=== PATIENT | female | born 1945 | race Caucasian/White ===

== ENCOUNTER 2024-10-27 09:58 | Emergency (ER) | payer MEDICARE, SELFPAY ==
[2024-10-27 10:21] VITALS: BP 165/90; PULSE 94; RESP 16; TEMP 36.6; O2SAT 99
[2024-10-27 10:34] LABS: EDCOVIDSCREEN Negative (Negative); EDINFLUASCREEN Negative (Negative); EDINFLUBSCREEN Negative (Negative); EDSTREPNEGPOS1 Negative (Negative)
--- NOTE | 2024-10-27 10:53 | ED_ITS ---
HPI - URI/Sore Throat General Chief Complaint: Upper Respiratory Infection Stated Complaint: COLD SYMPTOMS Time Seen by Provider: 10/27/24 10:35 Source: patient and RN notes reviewed Mode of arrival: ambulatory Limitations: no limitations History of Present Illness HPI Narrative: 79-year-old female presents to the [facility] complaining of upper respiratory symptoms and urinary symptoms for 1 week. Patient reports dysuria, suprapubic pain, cough, congestion, runny nose, and sore throat. Patient denies any body aches, chills, nausea, vomiting, diarrhea, back pain, fevers, chest pain, shortness of breath, earache, or any other symptoms. Patient said her symptoms started with urinary symptoms she called her doctor in the start Macrobid however her symptoms have not been improving. Patient did developed upper respiratory symptoms over the last week and they are not getting any better states that her symptoms are worsening reporting worsening sinus congestion and drainage, and cough. Patient denies any significant past medical history. Patient has a history of cholecystectomy and an appendectomy. Related Data Allergies Allergy/AdvReac Type Severity Reaction Status Date / Time bee venom protein (honey bee) Allergy Intermediate Difficulty Verified 10/27/24 10:53 Breathing iohexol (From contrast - CT, Allergy Intermediate Hives Verified 10/27/24 10:53 X-RAY) Sulfa (Sulfonamide Allergy Intermediate Other Verified 10/27/24 10:53 Antibiotics) prednisone AdvReac Intermediate Agitated Verified 10/27/24 10:53 Review of Systems Review of Systems: CONSTITUTIONAL: Denies fever, chills, or sweats. EYES: Denies visual changes, redness, or discharge. ENT: Positive for rhinorrhea, congestion, sore throat. Negative for otalgia. CARDIOVASCULAR: Denies chest pain, palpitations, or edema. RESPIRATORY: Positive for cough. Negative for wheezing or Dyspnea. GASTROINTESTINAL: Positive for abdominal pain. Negative for nausea, vomiting, or diarrhea. GENITOURINARY: Positive for dysuria, frequency. Negative for hesitancy, vaginal bleeding, vaginal discharge, hematuria. SKIN: Denies rash or itching. MUSCULOSKELETAL: Denies back pain, joint pain, or myalgia. NEUROLOGIC: Denies headache, numbness, or weakness. PSYCHIATRIC: Denies anxiety or depression. All other systems reviewed are negative, except as documented in HPI. PMFSH Comments At the time of my signature, I reviewed and agree with the nursing past medical, surgical, social, and family history. There is no relevant family history pertinent to the patient complaint. Exam Narrative: GENERAL: This is a well-nourished, well-developed adult, in no apparent distress. They are non ill-appearing, nontoxic appearing. HEAD: normocephalic, atraumatic. EYES: Sclera clear/white. Conjunctiva normal. Vision is grossly intact. Extraocular movements intact. periOrbital space edematous bilaterally without redness or pain. EARS: External ears normal, auditory canals clear and without drainage, TMs normal without perforation. Hearing grossly intact. NOSE: External nose normal with no obvious nasal discharge, nasal turbinates erythematous with exudate, no rhinorrhea. Maxillary sinus tenderness to palpation. THROAT: Mucous membranes moist, posterior pharynx erythematous. Uvula midline. Postnasal drip present. NECK: Neck supple, non-tender without lymphadenopathy, masses or thyromegaly. CARDIOVASCULAR: Regular rate and rhythm without murmurs, gallops, or rubs. RESPIRATORY: Clear to auscultation. Breath sounds equal bilaterally. No wheezes, rales, or rhonchi. GASTROINTESTINAL: Abdomen soft, mild suprapubic tenderness to palpation,, nondistended. Bowel sounds are active. No hepato-splenomegaly, or palpable masses. No guarding or rigidity. SKIN: warm, Dry, intact with no suspicious lesions or rash, good texture and turgor. NEURO: awake, alert, and oriented to person, place and time. There were no obvious focal neurologic abnormalities. EXTREMITIES: No joint tenderness, effusion, or edema noted. BACK: Nontender without deformity. No CVA tenderness. Course Course Emergency Course: Portions of this record may have been created with voice recognition software Level of Care: Express Care Visit Vital Signs Vital signs: Vital Signs Temperature 97.8 F 10/27/24 10:21 Pulse Rate 94 10/27/24 10:21 Respiratory Rate 16 10/27/24 10:21 Blood Pressure 165/90 H 10/27/24 10:21 Pulse Oximetry 99 10/27/24 10:21 Temperature 97.8 F 10/27/24 10:21 Pulse Rate 94 10/27/24 10:21 Respiratory Rate 16 10/27/24 10:21 Blood Pressure 165/90 H 10/27/24 10:21 Pulse Oximetry 99 10/27/24 10:21 Reviewed MDM - URI/Sore Throat MDM Narrative Medical decision making narrative: Rapid COVID, flu, strep were negative. A throat culture is pending. Given worsening symptoms and her length of symptoms likely the patient has developed a bacterial sinusitis. Patient continues to have urinary symptoms, urine dipstick was obtained that still shows evidence of urinary tract infection. Patient was started on Macrobid. A urine culture is pending. Will treat patient's UTI and sinusitis with Augmentin. Prescribe benzonatate tablets as needed for cough. Discussed physical exam findings. Advised supportive measures and signs/symptoms to go to the ER. Pt is appropriate for outpt treatment and f/u. Differential Diagnosis Differential diagnosis: Likely upper respiratory infection, sinusitis, viral infection, bronchitis and other (Urinary tract infection, pyelonephritis) Lab Data Attestation: I reviewed the patient's lab results. Labs: Lab Results 10/27/24 10/27/24 Range/Units 10:33 10:56 POC Urine Color Yellow POC Urine Clarity Clear POC Urine pH 7.5 POC Ur Specif [place] 1.015 POC Urine Protein Negative (Negative) POC Ur Glucose (UA) Negative (Negative) POC Urine Ketones Negative (Negative) POC Urine Blood Negative (Negative) POC Urine Nitrite Negative (Negative) POC Urine Bilirubin Negative (Negative) POC Urine Urobilinogen 4.0 POC U Leukocyte Esteras Trace (Negative) POC Influenza A Ag Negative (Negative) POC Influenza B Ag Negative (Negative) POC SARS CoV-2 Ag Negative (Negative) POC Grp A Strep Screen Negative (Negative) Critical Care Time Critical Care Time Critical Care Time: No Discharge Plan Discharge Clinical Impression: Sinusitis Qualifiers: Sinusitis location: unspecified location Chronicity: acute Recurrence: non- recurrent Qualified Code(s): J01.90 - Acute sinusitis, unspecified Urinary tract infection Qualifiers: Urinary tract infection type: site unspecified Hematuria presence: without hematuria Qualified Code(s): N39.0 - Urinary tract infection, site not specified Patient Disposition: Home Condition: Stable Instructions: Antibiotic Form, Sinusitis (ED), Urinary Tract Infection in Older Adults (ED) Additional Instructions: Your rapid COVID, flu, strep were negative. A throat culture is is sent off and if this positive for strep you will be contacted. Take the antibiotics as directed and complete the course even if you start to feel better. Take benzonatate tablets as needed for cough. You may use a Neti pot saline rinse 3 times a day with lukewarm distilled water Take Tylenol or ibuprofen as needed for pain or fevers. Follow instructions on the bottle. Use a humidifier or vaporizer at night. Drink plenty of water. 8-10 glasses per day. Use flonase 2 times per day for 5 days then as needed Take mucinex 2 times per day and be sure to take with 8oz of water. Urine dipstick did show evidence of urinary tract infection. The antibiotic prescribed her sinus infection will also cover for UTIs. The urine will be sent of for a culture to identify what type of bacteria is causing your infection. If the culture shows that the antibiotic will not get rid of your infection, you will be notified and a new antibiotic will be called in for you. Increase water intake you will need to follow up with your PCP 3-5 days. Go to the ER for any worsening symptoms, abdominal pain, fevers, nausea, vomiting, difficulty breathing, chest pains, worsening symptoms, or any other concerns Patient Language: Spanish Prescriptions: New benzonatate 100 mg capsule 100 mg PO TID PRN (Reason: cough) Qty: 20 0RF amoxicillin-pot clavulanate 875-125 mg tablet 1 tablet PO Q12H 7 Days Qty: 14 0RF Follow-up/Referrals: Spenser,Carmelo [Other] Time of Disposition: 10:59
[2024-10-27 10:58] LABS: EDUAAPPEAR Clear; EDUABILI Negative (Negative); EDUABLOOD Negative (Negative); EDUACOLOR1 Yellow; EDUAGLUCOSE Negative (Negative); EDUAKETONE Negative (Negative); EDUALEUKO Trace (Negative); EDUANITRATE Negative (Negative); EDUAPH 7.5; EDUAPROTEIN Negative (Negative); EDUASPGRAVITY 1.015; EDUAUROBILI 4.0
== END 2024-10-27 11:01 | disposition home or self-care (01) ==
DX: J32.9 Chronic sinusitis, unspecified (principal); N39.0 Urinary tract infection, site not specified; Z20.822 Contact with and (suspected) exposure to COVID-19
CPT/HCPCS: 81003; 87081; 87086; 87426; 87804; 87880; 99203; G0463

== ENCOUNTER 2025-01-29 17:33 | Emergency (ER) | payer MEDICARE, SELFPAY ==
--- NOTE | ~2025-01-29 | CT_ITS ---
CT abdomen pelvis wo con INDICATION:lower abd pain, poss stone vs infection . COMPARISON: None. TECHNIQUE: Axial 2.5 mm images of the abdomen were obtained without IV or oral contrast. Diagnostic sensitivity is limited due to lack of IV contrast. FINDINGS: The lung bases are clear. The liver parenchyma is unremarkable. No intrahepatic mass or ductal dilatation is evident. The patient has had a cholecystectomy. The pancreas and spleen are normal in appearance. The adrenal glands are symmetric in size. The kidneys are unremarkable. No intrarenal stones are noted. There is no hydronephrosis. Evaluation of the stomach and bowel loops are limited due to lack of oral contrast. There is a left inguinal hernia containing sigmoid and descending colon. No obstruction. The bladder and rectum are normal. No free intraperitoneal fluid or air is evident. There is no significant retroperitoneal lymphadenopathy. The aorta, visceral vessels and renal arteries demonstrate normal caliber. The lower thoracic and lumbar vertebrae are in normal alignment. IMPRESSION: Left inguinal hernia containing sigmoid and descending colon with no evidence of bowel obstruction. All CT scans at this facility are performed using low dose modulation techniques as appropriate to perform exam including the following: automated exposure control; use of iterative reconstruction technique; adjustment of the mA and/or kV according to patient size (this includes techniques or standardized protocols for targeted exams where dose is matched to indication/reason for exam). Reviewed, dictated and finalized at location S. UNICATIONS AGENT IMPRESSION: Left inguinal hernia containing sigmoid and descending colon with no evidence o f bowel obstruction. All CT scans at this facility are performed using low dose modulation techniqu es as appropriate to perform exam including the following: automated exposure c ontrol; use of iterative reconstruction technique; adjustment of the mA and/or kV according to patient size (this includes techniques or standardized protocol s for targeted exams where dose is matched to indication/reason for exam).
--- OUTSIDE RECORDS SUMMARY | 2025-01-29 16:00 | XMS_ITS | Encounter Summary ---
Author Organization [facility] Healthcare Address [address] [place] [address] Care Team Providers Care Manager Registration Name Role Phone Carmelo Dueñas MD Primary Care Provider [phone] Reason for Visit * Reason Comments UTI Lower back pain, chris n in lower abdomen x 3 days, pt took azo this morning Encounter Details Date Type Department Care Team (Late st Contact Info) Description 01/29/2025 4:00 PM INTEGRITY MANAGER Office Visit [facility] Medical [facility] Convenient Care at [address] [address] Alexandria Robles, MECHANICAL FIELD ENGINEER [address] [place] [address] [address] [place] [address] Lower abdominal pain (Primary Dx) Social History Tobacco Use Types Packs/Day Years Used Date Smoking Tobacco: Never Assessed Comments No Sex and Gender Information Value Date Recorded Sex Assigned at Not on file Legal Sex Female 4:42 PM INTEGRITY MANAGER Gender Identity Not on file Sexual Orientation Not on file documented as of this encounter Last Filed Vital Signs Vital Sign Reading Time Taken Comments Blood Pressure 122/70 01/29/2025 4:02 PM INTEGRITY MANAGER Pulse 79 01/29/2025 4:02 PM INTEGRITY MANAGER Temperature 36.2 C (97.2 F) 01/29/2025 4:02 PM INTEGRITY MANAGER Respiratory Rate 16 01/29/2025 4:02 PM INTEGRITY MANAGER Oxygen Saturation 97% 01/29/2025 4:02 PM INTEGRITY MANAGER Inhaled Oxygen Concentration - - Weight 54.9 kg (121 lb) 01/29/2025 4:02 PM INTEGRITY MANAGER Height 149.9 cm (4' 11) 01/29/2025 4:02 PM INTEGRITY MANAGER Body Mass Index 24.44 01/29/2025 4:02 PM INTEGRITY MANAGER documented in this encounter Plan of Treatment Scheduled Orders Name Type Priority Associated Diagnoses Orde r Schedule Urine culture Urine, clean voided Microbiology Routine Lower abdominal pain Expected: 01/29/2025, Expires: 01/29/2026 documented as of this encounter Procedures Procedure Name Priority Date/Time Associated Diagnosis Comments POCT URINALYSIS DIPSTICK Routine 01/29/2025 4:11 PM INTEGRITY MANAGER Lower abdominal pain documented in this encounter Results * (ABNORMAL) POCT urinalysis dipstick (01/29/2025 4:11 PM INTEGRITY MANAGER) Color, Urine, POC [place] Comment:azo Clarity, ur, POC Clear Clear Glucose, ur, POC Negative Negative Bilirubin, ur, POC Negative Negative Ketones, ur, POC Negative Negative Specific [place], POC 1.010 1.003 - 1.030 Blood, ur, POC Negative Negative pH, ur, POC 6.5 5.0 - 8.0 Protein, ur, POC Negative Negative Urobilinogen, urine, POC 1.0 0.2 - 1.0 mg/dL Nitrite, ur, POC Positive(A) Negative Leukocytes, ur, POC Negative Negative Lot Number [id number] Urine 01/29/2025 4:11 PM INTEGRITY MANAGER Alexandria Robles NP POINT OF CARE TEST ORDERAB LES Final Result documented in this encounter Visit Diagnoses Diagnosis Lower abdominal pain- Primary Abdominal pain, other specified site documented in this encounter Historical Medications * This list may reflect changes made after this encounter. travoprost (Travatan Z) 0.004 % drops 1 drop daily 01/21/2014 EPINEPHrine (EPIPEN 2-MILTON) 0.3 mg/0.3 mL auto-injection syringe 08/12/2015 albuterol 5 mg/mL nebulizer solution Inhale 0.5 mL (2.5 mg total) every 4 (four) hours as needed 06/24/2018 dorzolamide-bronwyn loL (COSOPT) 22.3-6.8 mg/mL ophthalmic solution 1 drop 2 (two) times a day 08/28/2020 ergocalciferol (VITAMIN D) 50,000 unit capsule Take 1 capsule (50,000 Units total) by mouth once a week 07/20/2024 meloxicam (MOBIC) 15 mg tablet Take 1 tablet (15 mg total) by mouth daily 04/16/2022 traZODone (DESYREL) 50 mg tablet Take 0.5-1 tablets (25-50 mg total) by mouth daily 11/13/2024 albuterol HFA (PROVENTIL HFA,VENTOLIN HFA,PROAIR HFA) 90 mcg/actuation inhaler USE 2 INHALATIONS BY MOUTH EVERY 6 HOURS NEEDED FOR SHORTNESS OF BREATH 11/22/2021 triamterene-hydr oCHLOROthiazide 37.5-25 mg per tablet/capsule Take 1 tablet/capsule by mouth daily 12/15/2013 lisinopriL (PRINIVIL,ZESTRI L) 40 mg tablet Take 1 tablet (40 mg total) by mouth daily 03/16/2022 levothyroxine (SYNTHROID) 50 mcg tablet Take 1 tablet (50 mcg total) by mouth daily 03/16/2022 omeprazole (PriLOSEC) 20 mg capsule Take 1 capsule (20 mg total) by mouth daily 03/16/2022 atorvastatin (LIPITOR) 40 mg tablet Take 1 tablet (40 mg total) by mouth daily 03/16/2022 fluticasone propionate (FLONASE) 50 mcg/actuation nasal spray Administer 2 sprays into affected nostril(s) daily 09/05/2021 ALPRAZolam (XANAX) 0.25 mg tablet Take 1 tablet (0.25 mg total) by mouth 3 (three) times a day as needed 05/14/2022 added in this encounter Care Teams Manager Registration Relationship Specialty Start Date End Date Carmelo Dueñas MD [address] [facility] [address] [place] [phone] PCP - General Internal Medicine 01/29/25 documented as of this encounter
--- OUTSIDE RECORDS SUMMARY | 2025-01-29 16:00 | XMS_ITS | Encounter Summary ---
Author Organization [facility] Healthcare Address [address] [place] [address] Care Team Providers Care Research Chemical Engineer Name Role Phone Carmelo Dueñas MD Primary Care Provider [phone] Reason for Visit * Reason Comments UTI Lower back pain, chris n in lower abdomen x 3 days, pt took azo this morning Encounter Details Date Type Department Care Team (Late st Contact Info) Description 01/29/2025 4:00 PM HOSPITAL ACCOUNT LIAISON Office Visit [facility] Medical Group Convenient Care at [address] [address] Alexandria Robles, SHIP LABORER [address] [place] [address] [address] [place] [address] Lower abdominal pain (Primary Dx) Social History Tobacco Use Types Packs/Day Years Used Date Smoking Tobacco: Never Assessed Comments No Sex and Gender Information Value Date Recorded Sex Assigned at Not on file Legal Sex Female 4:42 PM HOSPITAL ACCOUNT LIAISON Gender Identity Not on file Sexual Orientation Not on file documented as of this encounter Last Filed Vital Signs Vital Sign Reading Time Taken Comments Blood Pressure 122/70 01/29/2025 4:02 PM HOSPITAL ACCOUNT LIAISON Pulse 79 01/29/2025 4:02 PM HOSPITAL ACCOUNT LIAISON Temperature 36.2 C (97.2 F) 01/29/2025 4:02 PM HOSPITAL ACCOUNT LIAISON Respiratory Rate 16 01/29/2025 4:02 PM HOSPITAL ACCOUNT LIAISON Oxygen Saturation 97% 01/29/2025 4:02 PM HOSPITAL ACCOUNT LIAISON Inhaled Oxygen Concentration - - Weight 54.9 kg (121 lb) 01/29/2025 4:02 PM HOSPITAL ACCOUNT LIAISON Height 149.9 cm (4' 11) 01/29/2025 4:02 PM HOSPITAL ACCOUNT LIAISON Body Mass Index 24.44 01/29/2025 4:02 PM HOSPITAL ACCOUNT LIAISON documented in this encounter Plan of Treatment Scheduled Orders Name Type Priority Associated Diagnoses Orde r Schedule Urine culture Urine, clean voided Microbiology Routine Lower abdominal pain Expected: 01/29/2025, Expires: 01/29/2026 documented as of this encounter Procedures Procedure Name Priority Date/Time Associated Diagnosis Comments POCT URINALYSIS DIPSTICK Routine 01/29/2025 4:11 PM HOSPITAL ACCOUNT LIAISON Lower abdominal pain documented in this encounter Results * (ABNORMAL) POCT urinalysis dipstick (01/29/2025 4:11 PM HOSPITAL ACCOUNT LIAISON) Color, Urine, POC [place] Comment:azo Clarity, ur, POC Clear Clear Glucose, ur, POC Negative Negative Bilirubin, ur, POC Negative Negative Ketones, ur, POC Negative Negative Specific [place], POC 1.010 1.003 - 1.030 Blood, ur, POC Negative Negative pH, ur, POC 6.5 5.0 - 8.0 Protein, ur, POC Negative Negative Urobilinogen, urine, POC 1.0 0.2 - 1.0 mg/dL Nitrite, ur, POC Positive(A) Negative Leukocytes, ur, POC Negative Negative Lot Number [id number] Urine 01/29/2025 4:11 PM HOSPITAL ACCOUNT LIAISON Alexandria Robles NP POINT OF CARE TEST [...] 05/14/2022 added in this encounter Care Teams Research Chemical Engineer Relationship Specialty Start Date End Date Carmelo Dueñas MD [address] [facility] [place] [address] [place] [phone] PCP - General Internal Medicine 01/29/25 documented as of this encounter
[2025-01-29 18:05] VITALS: BP 149/99; PULSE 97; RESP 14; TEMP 36.8; O2SAT 99
--- OUTSIDE RECORDS SUMMARY | 2025-01-29 18:28 | XMS_ITS | Encounter Summary ---
Author Organization [facility] Address [address] [place] [address] Care Team Providers Care Child Care Attendant School Name Role Phone Carmelo Dueñas MD Primary Care Provider +- [phone] Encounter Details Date Type Department Care Team (Latest Contact Info) Description 03/06/2002 Outpatient Historical [facility] Carmelo Dueñas MD [address] [place] [phone] SYMPTOMATIC FEMALE CLIMACTERIC STATE (Primary Dx) Social History Tobacco Use Types Packs/Day Years Used Date Smoking Tobacco: Never Assessed Comments Unknown Sex and Gender Information Value Date Recorded Sex Assigned at Not on file Legal Sex Female 4:47 AM OUTSIDE PRODUCTION INSPECTOR Gender Identity Not on file Sexual Orientation Not on file documented as of this encounter Plan of Treatment Upcoming Encounters Date Type Department Care Team (Late st Contact Info) Description 03/06/2025 4:40 PM OUTSIDE PRODUCTION INSPECTOR Office Visit [facility] Primary Care [facility] [address] [place] [address] [address] [place] [phone] Carmelo Dueñas [place] [address] [facility] [address] [place] [address] documented as of this encounter Visit Diagnoses Diagnosis Symptomatic menopausal or female climacteric states- Primary documented in this encounter Care Teams Child Care Attendant School Relationship Specialty Start Date End Date Carmelo Dueñas MD [address] [place] [address] [address] [place] [address] PCP - General 03/06/02 documented as of this encounter
--- OUTSIDE RECORDS SUMMARY | 2025-01-29 18:28 | XMS_ITS | Encounter Summary ---
Author Organization [facility] Address [address] [place] [address] Care Team Providers Care Power Plant Engineer Name Role Phone Carmelo Dueñas MD Primary Care Provider [phone]- [phone] Encounter Details Date Type Department Care Team (Late Contact Info) Description 08/22/2002 Outpatient Historical [facility] Internal Medicine [address] [address] Carmelo Dueñas MD [address] [place] [phone] Social History Tobacco Use Types Packs/Day Years Used Date Smoking Tobacco: Never Assessed Comments Unknown Sex and Gender Information Value Date Recorded Sex Assigned at Not on file Legal Sex Female 4:47 AM CASE FOLDER Gender Identity Not on file Sexual Orientation Not on file documented as of this encounter Last Filed Vital Signs Vital Sign Reading Time Taken Comments Blood Pressure 130/86 08/22/2002 9:30 AM CDT Pulse - - Temperature - - Respiratory Rate - - Oxygen Saturation - - Inhaled Oxygen Concentration - - Weight 59 kg (130 lb) 08/22/2002 9:30 AM CDT Height - - Body Mass Index - - documented in this encounter Plan of Treatment Upcoming Encounters Date Type Department Care Team (Late st Contact Info) Description 03/06/2025 4:40 PM CASE FOLDER Office Visit [facility] Primary Care [address] [place] [address] Carmelo Dueñ[place] [id number] [address] documented as of this encounter Visit Diagnoses Not on filedocumented in this encounter Care Teams Power Plant Engineer Relationship Specialty Start Date End Date Carmelo Dueñas [place] [id number] [place] [phone] PCP - General 03/06/02 documented as of this encounter
--- OUTSIDE RECORDS SUMMARY | 2025-01-29 18:28 | XMS_ITS | Clinical Summary ---
Author Organization [facility] Address [address] [place] [address] Care Team Providers Care Auditing Specialist Name Role Phone Carmelo Dueñas MD Primary Care Provider [phone] Allergies Active Allergy Reactions Criticality Noted Date Comments Allergen Nyd-Cjcid-Wczbm Bee Swelling Low 10/30/2003 Codeine Itching,Confusion,Di zziness Low 05/10/2002 Iodinated Contrast Media Nausea and Vomiting Low Iodine Hives High 05/10/2002 Metrizamide Nausea and Vomiting Low 01/19/2014 Prednisone Other (See Comments) 06/24/2018 Fits of rage and crying Sulfa (Sulfonamide Antibiotics) Rash Low 08/10/2002 Sulfasalazine Itching Low 01/19/2014 Venom-Honey Bee Swelling Low 10/30/2003 Medications TRAVATAN Z 0.004 % solution Administer 1 Drop in both eyes daily. 01/22/20 14 Active ACETAMINOPHEN (TYLENOL ORAL) Take 325 mg by mouth 1 time daily as needed . Active EPIPEN 2-MILTON 0.3 mg/0.3 mL Auto-Injector 08/12/19 16 Active albuterol (PROVENTIL,VENTOL IN) 5 mg/mL Solution for Nebulization Take 0.5 mL (2.5 mg) by inhalation every 4 hours as needed for Shortness of Breath Saline premix vials. 30 mL 06/25/19 19 Active dorzolamide-timol oL (COSOPT) 22.3-6.8 mg/mL solution INSTILL 1 DROP IN BOTH EYES TWICE DAILY 08/29/19 21 Active estradioL (ESTRACE) 0.01% (0.1 mg/g) vaginal creamIndications: Recurrent UTI Insert 2 Grams vaginally daily. Administer 2 grams, once daily, intravaginally for 1 to 2 weeks. Then, gradually reduce to 50% of initial dose for 1 to 2 weeks. Adjust dose as needed to control symptoms. 42.5 Gram 2 01/06/20 23 Active Vitamin D2 1,250 mcg (50,000 unit) capsule TAKE 1 CAPSULE BY MOUTH EVERY 7 DAYS 13 Capsule 2 07/21/19 25 Active meloxicam (MOBIC) 15 mg tabletIndications :Generalized osteoarthrosis, involving multiple sites TAKE 1 TABLET BY MOUTH DAILY 90 Tablet 3 10/20/19 25 Active traZODone (DESYREL) 50 mg tablet Take 0.5-1 Tablets (25-50 mg) by mouth daily at bedtime. As needed for sleep 30 Tablet 2 11/14/19 25 Active fluticasone propionate (FLONASE) 50 mcg/spray Mutual, Suspension nasal inhalerIndication s:PND (post-nasal drip) Administer 2 Sprays in each nostril daily. 48 Gram 3 12/13/19 25 Active albuterol sulfate HFA 90 mcg/actuation aerosol inhalerIndication s:Upper respiratory tract infection, unspecified type USE 2 INHALATIONS BY MOUTH EVERY 6 HOURS NEEDED FOR SHORTNESS OF BREATH 34 Gram 3 12/12/19 25 Active atorvastatin (LIPITOR) 40 mg tabletIndications :Essential hypertension, benign TAKE 1 TABLET BY MOUTH DAILY 100 Tablet 3 12/13/19 25 Active omeprazole (PriLOSEC) 20 mg Capsule, Delayed Release(E.C.)Kylie cations:Gastroeso phageal reflux disease without esophagitis TAKE 1 CAPSULE BY MOUTH DAILY 100 Capsule 3 12/13/19 25 Active levothyroxine 50 mcg tabletIndications :Acquired hypothyroidism TAKE 1 TABLET BY MOUTH DAILY 100 Tablet 3 12/13/19 25 Active lisinopriL (PRINIVIL) 40 mg tabletIndications :Essential hypertension, benign TAKE 1 TABLET BY MOUTH DAILY 100 Tablet 3 12/13/19 25 Active triamterene-hydro CHLOROthiazide (MAXZIDE 25) 37.5-25 mg tabletIndications :Essential hypertension, benign TAKE 1 TABLET BY MOUTH DAILY 100 Tablet 3 12/13/19 25 Active ALPRAZolam (XANAX) 0.25 mg tabletIndications :Generalized anxiety disorder Take 1 Tablet (0.25 mg) by mouth 3 times daily as needed for Anxiety. 100 Tablet 01/02/20 25 Active ALPRAZolam (XANAX) 0.25 mg tabletIndications :Generalized anxiety disorder Take 1 Tablet (0.25 mg) by mouth 3 times daily as needed for Anxiety. 100 Tablet 10/11/19 25 025 Disconti nued(Reo rder) Active Problems Patient Care Coordination No te Formatting of this note migh t be different from the original. Physical -05/07 G0439 - 04/11 [facility] - [place] Problem Noted Date Diagnosed Date Use of cane as ambulatory aid 04/03/2024 Prediabetes 09/22/2021 Mild intermittent asthma without complication Open-angle glaucoma of both eyes, mild stage Overview (12/15/2018): [facility] 10/12/18 Vitamin D deficiency 04/21/2016 Urinary frequency 12/16/2006 Acquired hypothyroidism 10/29/2006 Gastroesophageal reflux disease without esophagi tis 09/01/2005 Urge incontinence 04/23/2005 Essential hypertension, benign 05/10/2002 Dyslipidemia 05/10/2002 Generalized anxiety disorder 05/10/2002 Migraine without aura and wi thout status migrainosus, not intractable 05/10/2002 Allergic rhinitis 05/10/2002 Generalized osteoarthrosis, involving multiple s ites 05/10/2002 Overview (09/11/2024): 08/09 - right TKR Osteopenia of multiple sites 05/10/2002 Overview (09/20/2023): Dexa 10/05 - repeat in 10/07 Alendronate since 2010 - stopped 10/08 Resolved Problems Problem Noted Date Diagnosed Date Resolved Date Adjustment disorder with mix ed disturbance of emotions and conduct 12/16/2006 10/18/2007 Cellulitis and abscess of face 08/24/2005 10/18/2007 Urinary tract infection, site not specified 11/12/2003 10/18/2007 Sting of hornets, wasps, and bees as the cause of poisoning and toxic reactions(E905.3) 11/02/2003 10/18/2007 Trunk, insect bite, nonvenom ous, without mention of infection(911.4) 11/02/2003 10/18/2007 Breast screening, unspecified 04/02/2003 06/25/2009 Acute bronchitis 07/03/2002 10/18/2007 Encounters Date Type Department Care Team Description 01/16/2025 External Device Data [facility] ABSTRACTION Provider, Abstract 01/09/2025 External Device Data [facility] ABSTRACTION Provider, Abstract 01/02/2025 External Device Data [facility] ABSTRACTION Provider, Abstract 01/01/2025 [facility] Internal Medicine [facility] [id number] [address] Carmelo Dueñas MD Generalized anxiety disorder 12/11/[address] [place] [address] Carmelo Dueñas MD Essential hypertension, benign; Gastroesophageal reflux disease without esophagitis; Acquired hypothyroidism 12/11/[address] [place] [address] Staci Del Valle, ANP Upper respiratory tract infection, unspecified type 12/11/[address] [place] [address] Carmelo Dueñas MD PND (post-nasal drip) 11/13/2024 Nurse Triage [facility] Internal Medicine [facility] [id number] [address] Carmelo Dueñas MD from Last 3 Months Immunizations Immunization Administration Dates Next Due (ADACEL/BOOSTRIX)(10 YR UP) TDAP VACCINE, 0.5ML, IM 01/14/2015 (PFIZER)(12 YR UP) COVID-19 VACCINE - EMERGENCY USE AUTHORIZATION, MRNA, [id number](PF) 30 MCG/0.3 ML IM SUSP 11/21/2020,05/08/2020,04/19/2020 (PNEUMOVAX 23)(50 YRS UP) PN EUMOCOCCAL POLYSACCHARIDE (PPV23) 0.5 ML, IM 02/18/2012 (PREVNAR 13)(6 WKS UP) PNEUM OCOCCAL CONJUGATE (PCV13) 0.5 ML, IM 10/08/2014 (SHINGRIX)(50 YRS UP) ZOSTER VACCINE RECOMBINANT, 0.5 ML, IM 12/16/2021,09/23/2021 (TDVAX)(7 YRS UP) TETANUS AN D DIPHTHERIA TOXOIDS, ADSORBED (2 LF OF TETANUS TOXOID AND 2 LF OF DIPHTHERIA TOXOID), 0.5ML (PF), IM 02/15/2002 INFLUENZA VACCINE HIGH DOSE QUADRIVALENT 65 YR UP PF IM 12/02/2021,11/03/2020 INFLUENZA VACCINE QUADRIVALE NT ADJ 65 YR UP PF IM 11/11/2022 Influenza Seasonal Unspecifi ed Formulation IM 11/20/2015,11/15/2013,11/26/2012,11/15,11/15/2010,11/15/2009,11/16/2007 Influenza Vaccine High Dose 65+ Yrs IM 0 11/04/2019,10/30/2018,11/01/2017,11/02,11/02/2016,12/06/2014 Influenza Vaccine Split 3+ Yrs IM 12/23/2006 Zoster Vaccine Live SQ 08/15/2010 Family History Medical History Relation Name Comments Cancer Mother Heart Disease Sister 1 Stroke Sister 2 Diabetes Son Heart Disease Son Relation Name Status Comments Brother Father Mother Sister 1 Alive Sister 2 Son Alive Social History Tobacco Use Types Packs/Day Years Used Date Smoking Tobacco: Former Cigarettes 20 0 10/17/1962 - 10/17/1982 Passive Smoke Exposure: Past Smokeless Tobacco: Never Tobacco Cessation:Counseling Given: No Alcohol Use Standard Drinks/Week Comments Yes 1 (1 standard drink = 0.6 oz pur e alcohol) rarely Feeling Safe Answer Date Recorded Within the last year, have y ou been afraid of your partner or ex-partner? Patient declined 05/31/2018 Within the last year, have y ou been humiliated or emotionally abused in other ways by your partner or ex-partner? Patient declined 05/31/2018 Within the last year, have y ou been kicked, hit, slapped, or otherwise physically hurt by your partner or ex-partner? Patient declined 05/31/2018 Within the last year, have y ou been raped or forced to have any kind of sexual activity by your partner or ex-partner? Patient declined 05/31/2018 Social Connections Answer Date Recorded In a typical week, how many times do you talk on the phone with family, friends, or neighbors? Three times a week 01/23/2020 How often do you get togethe r with friends or relatives? More than three times a week 01/23/2020 Attends Jewish Services Not on file 01/22 Active Member of Clubs or Organizations Not on f ile 01/23/2020 Attends Club or Organization Meetings Not on keagan e 01/23/2020 Marital Status Not on file 01/23/2020 Financial Resource Strain Answer Date R ecorded How hard is it for you to pa y for the very basics like food, housing, medical care, and heating? Not hard at all 04/16/2022 Food Insecurity Answer Date Recorded In the past 12 months, have you worried that your food would run out before you had money to buy more? Never true 04/16/2022 In the past 12 months, did y ou run out of food and didn't have money to buy more? Never true 04/16/2022 Transportation Needs Answer Date Record ed In the past 12 months, has l ack of transportation kept you from medical appointments or from getting medications? No 04/16/2022 Lack of Transportation (Non-Medical) Not on file 04/16/2022 Education Answer Date Recorded What is the highest level of school you have completed or the highest degree you have received? 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 Not on file Not on file Last Filed Vital Signs Vital Sign Reading Time Taken Comments Blood Pressure 126/64 09/11/2024 3:02 PM CDT Pulse 92 09/11/2024 3:02 PM CDT Temperature 37.2 C (98.9 F) 09/16/2022 2:09 PM CDT Respiratory Rate 20 06/24/2018 11:25 AM CDT Oxygen Saturation 97% 09/11/2024 3:02 PM CDT Inhaled Oxygen Concentration - - Weight 58.2 kg (128 lb 3.2 oz) 09/11/2024 3:02 P M CDT Height 149.9 cm (4' 11) 09/11/2024 3:02 PM CDT Body Mass Index 25.89 09/11/2024 3:02 PM CDT Plan of Treatment Upcoming Encounters Date Type Department Care Team (Late st Contact Info) Description 03/06/2025 4:40 PM TECHNICAL PROJECT LEAD Office Visit [facility] [address] [place] [address] Carmelo Dueñas [place] [id number] [address] Health Maintenance Due Date Last Done Comments RSV VACCINE (60+ or ) (1 - 1-dose 75+ series) 2021 INFLUENZA VACCINE (#1) 2024 3, 12/02/2021, 11/03/2020, Additional history exists COVID-19 Vaccine (2024-2 6 season) 2024 11/21/2020, 05/08/2020, 04/19/2020 DTAP/TDAP/TD VACCINES (2 - T d or Tdap) 01/14/2025 01/14/2015, 02/15/2002 OSTEOPOROSIS SCREENING 10/20/2026 4, 10/21/2023, 09/24/2020, Additional history exists PNEUMOCOCCAL VACCINE 50+ YEARS Completed 10/08/2014 , 02/18/2012 COLORECTAL SCREENING Discontinued 05/29/2015, 05/14/19 06 Colorectal Cancer Screening Discontinued ZOSTER VACCINE Completed 12/16/2021, 10/2021, 08/15/2010 [place]) Preventative Visit/Annual Wellness Visit Completed 04/03/2024, 04/12/2023, 04/16/2022, Additional history exists FIT-DNA Q 3 years Discontinued FIT/FOBT Q 1 year Discontinued Flex Sig/CT Colonography Q 5 years Discontinued Procedures Procedure Name Priority Date/Time Associated Diagnosis Comments XR DEXA BONE DENSITY AXIAL 1 OR MORE SITES Routine 10/21/2023 8:20 AM CDT Osteopenia of multiple sites from Last 3 Months or Most Recently Relevant to Health Maintenance Results * XR DEXA BONE DENSITY AXIAL 1 OR MORE SITES (10/21/2023 8:20 AM CDT) Anatomical Region Laterality Modality Digital Radiogra phy 10/21/2023 8:20 AM CDT Impressions 10/21/2023 9:13 AM CDT IMPRESSION: Osteopenia. Lumbar Spine: T-score: -1.1 Left Femoral Neck: T-score: -2.2 Left Total Femur: T-score: -1.5 Right Femoral Neck: T-score: -2.3 Right Total Femur: T-score: -1.6 Statistical CHANGE: No significant change in BMD since the prior exam. FRAX FRACTURE RISK ASSESSMENT: (Only valid Between 40-89 Years Of Age) Risk factors: Secondary osteoporosis. 10-Year probability of fracture Major osteoporotic fracture: 9.6 % Defined as fracture of the spine, hip or shoulder. Hip fracture: 2.9 % Comparison population: [place], Race: This is a summary page. Please refer to the complete detailed report found in: Imaging Section of the [facility] EMR. Definitions: Normal: T-score above -1.0 Osteopenia T-score less than -1.0 and above -2.5 Osteoporosis: T-score <= -2.5 Note: Clinical Osteoporosis may be based on other factors besides DXA calculated BMD. OTher factors include and are not limited to fragility fractures, subclinical compression fractures,osteopenia and elevated FRAX Scores. A major osteoporotic fracture is defined as a fracture of the spine, forearm, hip or shoulder. Follow-up Recommendations: Patients without high risk factors for osteoporosis T-score -1.0 to -1.5 - Consider repeat BMD in 5-10 years T-score -1.5 to - 2.0 - Consider repeat BMD in 3-5 years T-score -2.0 to - 2.5 - Consider repeat BMD every 2 years Patients on treatment for osteoporosis 1-2 years after initiation of treatment and every 2 years thereafter [address] Dr[address] Bridger Dominguez MD DICTATION LOCATION: 1 Narrative 10/21/2023 9:13 AM CDT EXAMINATION: BONE DENSITY STUDY (DXA) DATE: 10/21/2023 8:20 AM HISTORY: 78 years Female. Postmenopausal. Osteopenia. PROCEDURE: Planar images of the lumbar spine and hip(s). [employer] DEXA scanner for bone mineral density determination (BMD). Prior bone density: 09/24/2020 FINDINGS: Lumbar Spine (L1-L2): T-score: -1.1 1.035 g/sq cm Prior: 0.958 g/sq cm Left Femoral Neck: T-score: -2.2 0.733 g/sq cm Prior: 0.746 g/sq cm Left Total Femur: T-score: -1.5 Right Femoral Neck: T-score: -2.3 0.719 g/sq cm Prior: 0.740 g/sq cm Right Total Femur: T-score: -1.6 TECHNICAL ISSUES: L3-L4 excluded because of degenerative changes. Procedure Note Bridger Dominguez MD - 10/21/2023 EXAMINATION: BONE DENSITY STUDY (DXA) DATE: 10/21/2023 8:20 AM HISTORY: 78 years Female. Postmenopausal. Osteopenia. PROCEDURE: Planar images of the lumbar spine and hip(s). [employer] DEXA scanner for bone mineral density determination (BMD). Prior bone density: 09/24/2020 FINDINGS: Lumbar Spine (L1-L2): T-score: -1.1 1.035 g/sq cm Prior: 0.958 g/sq cm Left Femoral Neck: T-score: -2.2 0.733 g/sq cm Prior: 0.746 g/sq cm Left Total Femur: T-score: -1.5 Right Femoral Neck: T-score: -2.3 0.719 g/sq cm Prior: 0.740 g/sq cm Right Total Femur: T-score: -1.6 TECHNICAL ISSUES: L3-L4 excluded because of degenerative changes. IMPRESSION: Osteopenia. Lumbar Spine: T-score: -1.1 Left Femoral Neck: T-score: -2.2 Left Total Femur: T-score: -1.5 Right Femoral Neck: T-score: -2.3 Right Total Femur: T-score: -1.6 Statistical CHANGE: No significant change in BMD since the prior exam. FRAX FRACTURE RISK ASSESSMENT: (Only valid Between 40-89 Years Of Age) Risk factors: Secondary osteoporosis. 10-Year probability of fracture Major osteoporotic fracture: 9.6 % Defined as fracture of the spine, hip or shoulder. Hip fracture: 2.9 % Comparison population: [place], Race: This is a summary page. Please refer to the complete detailed report found in: Imaging Section of the [facility] EMR. Definitions: Normal: T-score above -1.0 Osteopenia T-score less than -1.0 and above -2.5 Osteoporosis: T-score <= -2.5 Note: Clinical Osteoporosis may be based on other factors besides DXA calculated BMD. OTher factors include and are not limited to fragility fractures, subclinical compression fractures,osteopenia and elevated FRAX Scores. A major osteoporotic fracture is defined as a fracture of the spine, forearm, hip or shoulder. Follow-up Recommendations: Patients without high risk factors for osteoporosis T-score -1.0 to -1.5 - Consider repeat BMD in 5-10 years T-score -1.5 to - 2.0 - Consider repeat BMD in 3-5 years T-score -2.0 to - 2.5 - Consider repeat BMD every 2 years Patients on treatment for osteoporosis 1-2 years after initiation of treatment and every 2 years thereafter D[address] Dr[address] Bridger Dominguez MD DICTATION LOCATION: 1 Carmelo Dueñas MD DIAGNOSTIC IMAGING ORDERAB LES Final Result from Last 3 Months or Most Recently Relevant to Health Maintenance Insurance [facility] [id number] Advance Directives For more information, please contact: [phone] * Full Code (Latest Code Status on File) Date Activated Date Inactivated Comments 05/29/2015 1:59 PM 05/29/2015 5:54 PM Care Teams Auditing Specialist Relationship Specialty Start Date End Date Carmelo Dueñas [place] [id number] [address] PCP - General 03/06/02
--- OUTSIDE RECORDS SUMMARY | 2025-01-29 18:28 | XMS_ITS | Encounter Summary ---
Author Organization [facility] [address] [place] [address] Care Team Providers Care Needle Punch Operator Name Role Phone Pilar Arroyo MD Unavailable [phone] Carmelo Dueñas MD Primary Care Provider Reason for Visit * Reason Onset Date Comments Results 06/06/2022 Encounter Details Date Type Department Care Team (Late st Contact Info) Description 06/06/2022 Telephone [facility] [address] [facility], [address] [place] [address] Aimee Echols APRN-[facility] REGISTERED NURSE N[facility] [address] [place] [address] Results Social History Tobacco Use Types Packs/Day Years Used Date Smoking Tobacco: Never Alcohol Use Standard Drinks/Week Comments No 0 (1 standard drink = 0.6 oz pur e alcohol) Comments No Sex and Gender Information Value Date Recorded Sex Assigned at Not on file Legal Sex Female 5:48 AM FRANCHISE CONSULTANT Gender Identity Not on file Sexual Orientation Not on file COVID-19 Exposure Response Date Recorded In the last 10 days, have yo u been in contact with someone who was confirmed or suspected to have Coronavirus/COVID-19? No / Unsure 06/01/2022 6:07 PM CDT documented as of this encounter Miscellaneous Notes * Telephone Encounter - Arcadio, Meredith - 06/06/2022 10:08 AM CDT Who is calling? Self What is the reason for call? call for results Expected Response from the Clinic? Please call to advis documented in this encounter Plan of Treatment Not on file documented as of this encounter Visit Diagnoses Not on filedocumented in this encounter Additional Health Concerns Infection Onset Date Last Indicated Resolved Time COVID-19 Under Investigation 02/17/2023 02/17/2023 02/17/2023 10:43 AM FRANCHISE CONSULTANT COVID-19 Confirmed 02/17/2023 02/17/2023 4:35 AM FRANCHISE CONSULTANT documented as of this encounter Care Teams Needle Punch Operator Relationship Specialty Start Date End Date Carmelo Dueñas MD PCP - General Internal Medicine 01/19/14 Pilar Arroyo MD Orthopedic Surgery 01/19/14 documented as of this encounter
--- OUTSIDE RECORDS SUMMARY | 2025-01-29 18:28 | XMS_ITS | Encounter Summary ---
Author Organization [facility] Address [address] [place] [address] Care Team Providers Care Road Maker Name Role Phone Carmelo Dueñas MD Primary Care Provider [phone] Encounter Details Date Type Department Care Team (Late Contact Info) Description 07/03/2002 Outpatient Historical [facility] Internal Medicine [address] [address] Carmelo Dueñas [place] [address] [address] Social History Tobacco Use Types Packs/Day Years Used Date Smoking Tobacco: Never Assessed Comments Unknown Sex and Gender Information Value Date Recorded Sex Assigned at Not on file Legal Sex Female 4:47 AM EXHAUST WORKER Gender Identity Not on file Sexual Orientation Not on file documented as of this encounter Last Filed Vital Signs Vital Sign Reading Time Taken Comments Blood Pressure 130/90 07/03/2002 4:30 PM CDT Pulse - - Temperature - - Respiratory Rate - - Oxygen Saturation - - Inhaled Oxygen Concentration - - Weight 60.8 kg (134 lb) 07/03/2002 4:30 PM CDT Height - - Body Mass Index - - documented in this encounter Plan of Treatment Upcoming Encounters Date Type Department Care Team (Late Contact Info) Description 03/06/2025 4:40 PM EXHAUST WORKER Office Visit [facility] Primary Care [address] [place] [address] Carmelo Dueñas [place] [id number] [place] [address] documented as of this encounter Visit Diagnoses Not on filedocumented in this encounter Care Teams Road Maker Relationship Specialty Start Date End Date Carmelo Dueñas [place] [id number] [place] [address] PCP - General 03/06/02 documented as of this encounter
--- OUTSIDE RECORDS SUMMARY | 2025-01-29 18:28 | XMS_ITS | Encounter Summary ---
Author Organization [facility] Address [address] [place] [address] Care Team Providers Care Transformer Mechanic Name Role Phone Carmelo Dueñas MD Primary Care Provider [phone]- [phone] Encounter Details Date Type Department Care Team (Late Contact Info) Description 02/21/2002 Outpatient Historical [facility] Internal Medicine [address] [address] Carmelo Dueñas [place] [address] [facility] [address] [place] [address] Social History Tobacco Use Types Packs/Day Years Used Date Smoking Tobacco: Never Assessed Comments Unknown Sex and Gender Information Value Date Recorded Sex Assigned at Not on file Legal Sex Female 4:47 AM CHARTER COORDINATOR Gender Identity Not on file Sexual Orientation Not on file documented as of this encounter Plan of Treatment Upcoming Encounters Date Type Department Care Team (Late Contact Info) Description 03/06/2025 4:40 PM CHARTER COORDINATOR Office Visit [facility] Primary Care [address] [place] [address] Carmelo Dueñas [place] [address] [facility] [address] [place] [address] documented as of this encounter Visit Diagnoses Not on filedocumented in this encounter Care Teams Transformer Mechanic Relationship Specialty Start Date End Date Carmelo Dueñ[place] [address] [address] PCP - General 03/06/02 documented as of this encounter
--- OUTSIDE RECORDS SUMMARY | 2025-01-29 18:28 | XMS_ITS | Encounter Summary ---
Author Organization [facility] Address [address] [place] [address] Care Team Providers Care Wild Animal Caretaker Name Role Phone Carmelo Dueñas MD Primary Care Provider [phone]- [phone] Encounter Details Date Type Department Care Team (Late Contact Info) Description 05/23/2002 Outpatient Historical [facility] Internal Medicine [address] [address] Carmelo Dueñ[place] [address] [address] Social History Tobacco Use Types Packs/Day Years Used Date Smoking Tobacco: Never Assessed Comments Unknown Sex and Gender Information Value Date Recorded Sex Assigned at Not on file Legal Sex Female 4:47 AM BENEFITS CONSULTANT Gender Identity Not on file Sexual Orientation Not on file documented as of this encounter Last Filed Vital Signs Vital Sign Reading Time Taken Comments Blood Pressure 122/90 05/23/2002 1:45 PM CDT Pulse - - Temperature - - Respiratory Rate - - Oxygen Saturation - - Inhaled Oxygen Concentration - - Weight 61.2 kg (135 lb) 05/23/2002 1:45 PM CDT Height - - Body Mass Index - - documented in this encounter Plan of Treatment Upcoming Encounters Date Type Department Care Team (Late Contact Info) Description 03/06/2025 4:40 PM BENEFITS CONSULTANT Office Visit [facility] Primary Care [address] [place] [address] Carmelo Dueñas [place] [address] [place] [phone] documented as of this encounter Visit Diagnoses Not on filedocumented in this encounter Care Teams Wild Animal Caretaker Relationship Specialty Start Date End Date Carmelo Dueñas [place] [id number] [place] [address] PCP - General 03/06/02 documented as of this encounter
--- OUTSIDE RECORDS SUMMARY | 2025-01-29 18:28 | XMS_ITS | Encounter Summary ---
Author Organization [facility] Address [address] [place] [address] Care Team Providers Care Director Global Medical Affairs Name Role Phone Pilar Arroyo MD Unavailable [phone] Carmelo Dueñas MD Primary Care Provider Reason for Visit * Reason Onset Date Comments Patient Requested Call 08/09/2023 Encounter Details Date Type Department Care Team (Late st Contact Info) Description 08/09/2023 Telephone [facility] Urgent Care [address] [place] [address] Aimee Echols, MARGO-BUFFING MACHINE OPERATOR SEMIAUTOMATIC [address] [facility] [place] [address] Patient Requested Call Social History Tobacco Use Types Packs/Day Years Used Date Smoking Tobacco: Never Alcohol Use Standard Drinks/Week Comments No 0 (1 standard drink = 0.6 oz pur e alcohol) PHQ-2 Answer Date Recorded Patient Health Questionnaire-2 Score 0 08/02/2023 Comments No Sex and Gender Information Value Date Recorded Sex Assigned at Not on file Legal Sex Female 5:48 AM BLEACHER SULFITE PULP Gender Identity Not on file Sexual Orientation Not on file documented as of this encounter Miscellaneous Notes * Telephone Encounter - Fara Conte - 08/09/2023 10:02 AM CDT Who is calling? self What is the reason for call? Patient was seen at the beginning of this month and waiting for a callback for a specialist. The number she was given on her paperwork is a non-working number. Expected Response from the Clinic? Please call her at the above noted phone number. Did you notify caller of response or call back timeframe? NO Encounter before 6:30p - same day documented in this encounter Plan of Treatment Not on file documented as of this encounter Visit Diagnoses Not on filedocumented in this encounter Care Teams Director Global Medical Affairs Relationship Specialty Start Date End Date Carmelo Dueñas MD PCP - General Internal Medicine 01/19/14 Pilar Arroyo MD Orthopedic Surgery 01/19/14 documented as of this encounter
--- OUTSIDE RECORDS SUMMARY | 2025-01-29 18:29 | XMS_ITS | Encounter Summary ---
Author Organization [facility] Address [address] [place] [address] Care Team Providers Care Senior Technical Business Analyst Name Role Phone Carmelo Dueñas MD Primary Care Provider [phone] Encounter Details Date Type Department Care Team (Late Contact Info) Description 07/08/[address] [facility] Internal Medicine [address] [phone] Omari Millard MD [address] [place] [address] [address] [place] [address] Social History Tobacco Use Types Packs/Day Years Used Date Smoking Tobacco: Never Assessed Comments Unknown Sex and Gender Information Value Date Recorded Sex Assigned at Not on file Legal Sex Female 4:47 AM MORTGAGE LOAN PROCESSING CLERK Gender Identity Not on file Sexual Orientation Not on file documented as of this encounter Plan of Treatment Upcoming Encounters Date Type Department Care Team (Late Contact Info) Description 03/06/2025 4:40 PM MORTGAGE LOAN PROCESSING CLERK Office Visit [facility] Primary Care [facility] [address] [place] [address] [address] [place] [address] Carmelo Dueñas MD [address] [place] [phone] documented as of this encounter Visit Diagnoses Not on filedocumented in this encounter Care Teams Senior Technical Business Analyst Relationship Specialty Start Date End Date Carmelo Dueñ[place] [address] [address] [place] [address] PCP - General 03/06/02 documented as of this encounter
--- OUTSIDE RECORDS SUMMARY | 2025-01-29 18:29 | XMS_ITS | Encounter Summary ---
Author Organization [facility] Address [address] [place] [address] Care Team Providers Care Cutlery Grinder Name Role Phone Carmelo Dueñas MD Primary Care Provider [phone]- [phone] Encounter Details Date Type Department Care Team (Latest Contact Info) Description 08/24/2006 Outpatient Historical [facility] Carmelo Dueñas MD [address] [place] [address] [address] [place] [address] Other Screening Mammogram (Primary Dx) Social History Tobacco Use Types Packs/Day Years Used Date Smoking Tobacco: Never Assessed Comments Unknown Sex and Gender Information Value Date Recorded Sex Assigned at Not on file Legal Sex Female 4:47 AM RESOURCE DEVELOPMENT MANAGER Gender Identity Not on file Sexual Orientation Not on file documented as of this encounter Plan of Treatment Upcoming Encounters Date Type Department Care Team (Late st Contact Info) Description 03/06/2025 4:40 PM RESOURCE DEVELOPMENT MANAGER Office Visit [facility] Primary Care [facility] [address] [place] [address] [address] [place] [phone] Carmelo Dueñas [place] [id number] [place] [address] [address] [place] [address] documented as of this encounter Visit Diagnoses Diagnosis Other screening mammogram- Primary documented in this encounter Care Teams Cutlery Grinder Relationship Specialty Start Date End Date Carmelo Dueñas [place] [id number] [place] [address] [address] [place] [address] PCP - General 03/06/02 documented as of this encounter
--- OUTSIDE RECORDS SUMMARY | 2025-01-29 18:29 | XMS_ITS | Clinical Summary ---
Author Organization [facility] Address [address] [place] [address] Care Team Providers Care Applications Administrator Name Role Phone Pilar Arroyo MD Unavailable [phone] Carmelo Dueñas MD Primary Care Provider [phone] Source Comments [facility],non-owned Affiliates and Associated Physician Practices is amultiple site organization consisting of ambulatory clinics and hospital sitesin [place], [place], [place] and [place]. This disclosure is being madepursuant to the Care Everywhere program and may not contain all information available regarding this patient. Last updated 17.[facility] Allergies Active Allergy Reactions Criticality Noted Date Comments [place] Venom Swelling Low 10/30/2003 Codeine TUBE DRAWER Dysfunction,Dizzines s,Itching Low 05/10/2002 Codeine Dizziness 01/19/2014 Contrast-Iodinated Agents For Ct/Other Nausea and/or Vomiting Low 01/19/2014 Iodine Urticaria High 05/10/2002 Misc. Sulfonamide Containing Compounds Other 08/02/2023 Prednisone Other 06/24/2018 Fits of rage and crying Sulfa Drugs Itching,Rash Medium 08/10/2002 Sulfasalazine Itching Low 01/19/2014 Medications * Be aware that medications may not be up to date on this document. Alwaysverify current medications with the patient. triamterene-hydroc hlorothiazide (MAXZIDE-25) 37.5-25 MG tablet 12/16/19 14 Active albuterol HFA (Proventil; Ventolin; Proair) 108 (90 Base) MCG/ACT inhaler USE 2 INHALATIONS BY MOUTH EVERY 6 HOURS NEEDED FOR SHORTNESS OF BREATH 11/23/19 22 Active ALPRAZolam (Xanax) 0.25 MG tablet Take 1 (one) tablet by mouth every 8 hours as needed 05/15/19 23 Active atorvastatin (Lipitor) 40 MG tablet Take 1 (one) tablet by mouth once daily 03/16/19 23 Active fluticasone propionate (Flonase) 50 MCG/ACT nasal spray [place] 2 (two) sprays into the nose once daily 09/06/19 22 Active Flovent HFA 44 MCG/ACT inhaler 02/24/19 23 Active levothyroxine (Synthroid) 50 MCG tablet Take 1 (one) tablet by mouth once daily 03/16/19 23 Active lisinopril (Prinivil; Zestril) 40 MG tablet Take 1 (one) tablet by mouth once daily 03/16/19 23 Active meloxicam (Mobic) 15 MG tablet Take 1 (one) tablet by mouth once daily 04/17/19 23 Active omeprazole (PriLOSEC) 20 MG capsule Take 1 (one) capsule by mouth once daily 03/16/19 23 Active triamterene-hydroC HLOROthiazide (Maxzide-25) 37.5-25 MG tablet Take 1 (one) tablet by mouth once daily 03/16/19 23 Active travoprost, MELINDA free, (Travatan Z) 0.004 % ophthalmic solution 1 (one) drop at bedtime Active estradiol (Estrace) 0.1 MG/GM vaginal cream INSERT 2 GRAMS VAGINALLY ONCE DAILY FOR 1 TO 2 WEEKS THEN GRADUALLY REDUCE TO 50% OF INITIAL DOSE FOR 1 TO 2 WEEKS. ADJUST DOSE NEEDED TO CONTROL SYMPTOMS Active dorzolamide-timolo l (Cosopt) 2-0.5 % ophthalmic solution 05/29/19 24 Active oxyCODONE-acetamin ophen (Percocet) 7.5-325 MG tabletIndications: Primary osteoarthritis of right knee Take 1 (one) tablet by mouth every 6 hours as needed for Pain 30 tablet 08/03/19 25 Active aspirin EC (Ecotrin) 81 MG tablet Take 1 (one) tablet by mouth 2 times daily 60 tablet 08/03/19 25 Active Active Problems Problem Noted Date Diagnosed Date Primary osteoarthritis of right knee 08/01/2024 Social History Tobacco Use Types Packs/Day Years Used Date Smoking Tobacco: Never Smokeless Tobacco: Never Tobacco Cessation:Counseling Given: Not Answered Alcohol Use Standard Drinks/Week Comments Yes 0 (1 standard drink = 0.6 oz pur e alcohol) occas AUDIT-C Answer Date Recorded Q1: How often do you have a drink containing alcohol? Monthly or less 08/01/2024 Q2: How many drinks containi ng alcohol do you have on a typical day when you are drinking? Patient does not drink Q3: How often do you have si x or more drinks on one occasion? Never 08/01/2024 Overall Financial Resource Strain (CARDIA) Answe r Date Recorded How hard is it for you to pa y for the very basics like food, housing, medical care, and heating? Not hard at all 08/01/2024 PHQ-2 Answer Date Recorded Patient Health Questionnaire-2 Score 0 08/02/2023 [facility] - Occupational Stress Questionnaire Answer Date Recorded Do you feel stress - tense, restless, nervous, or anxious, or unable to sleep at night because your mind is troubled all the time - these days? Not at all 08/01/2024 Hunger Vital Sign Answer Date Recorded Within the past 12 months, y ou worried that your food would run out before you got the money to buy more. Never true 08/02/19 25 Within the past 12 months, t he food you bought just didn't last and you didn't have money to get more. Never true 08/01/2024 PRAPARE - Transportation Answer Date Re corded In the past 12 months, has l ack of transportation kept you from medical appointments or from getting medications? No 07/16 In the past 12 months, has l ack of transportation kept you from meetings, work, or from getting things needed for daily living? No 08/01/2024 Housing Stability Vital Sign Answer Shorty e Recorded In the last 12 months, was t here a time when you were not able to pay the mortgage or rent on time? No 08/01/2024 In the past 12 months, how m any times have you moved where you were living? 0 08/01/2024 At any time in the past 12 m [facility], were you homeless or living in a jail (including now)? 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 Gender Identity Not on file Sexual Orientation Not on file Last Filed Vital Signs Vital Sign Reading Time Taken Comments Blood Pressure 137/79 08/02/2024 12:00 PM CDT Pulse 64 08/02/2024 12:00 PM CDT Temperature 36.1 C (96.9 F) 08/02/2024 12:00 PM CDT Respiratory Rate 18 08/02/2024 12:00 PM CDT Oxygen Saturation 95% 08/02/2024 12:00 PM CDT Inhaled Oxygen Concentration - - Weight 59.4 kg (131 lb) 08/01/2024 10:19 AM CDT Height 147.3 cm (4' 10) 08/01/2024 10:19 AM CDT Body Mass Index 27.38 08/01/2024 10:19 AM CDT Plan of Treatment Health Maintenance Due Date Last Done Comments HEPATITIS C SCREENING 08/15/1963 DTAP/TDAP/TD VACCINES (1 - Tdap) 1965 PNEUMOCOCCAL VACCINE 50+ (1 of 2 - PCV) 1965 ZOSTER VACCINE (1 of 2) 1996 Respiratory Syncytial Virus (RSV) Vaccine Pt: or over 60 yrs (1 - 1-dose 75+ series) 2021 DEPRESSION SCREENING 02/16/2024 08/02/2023 MEDICARE AWV CALENDAR YEAR 2024 COVID-19 VACCINE ( - season) 2024 11/21/2020, 05/08/2020, 04/19/2020 INFLUENZA VACCINE (#1) 2024 3, 12/02/2021, 11/03/2020, Additional history exists BONE DENSITY TESTING Completed 10/21/2023, 09/24/2020, 11/30/2016, Additional history exists HEPATITIS B VACCINE Aged Out No longe r eligible based on patient's age to complete this topic HIB VACCINE Aged Out No longer eligi ble based on patient's age to complete this topic HPV VACCINE Aged Out No longer eligi ble based on patient's age to complete this topic MENINGOCOCCAL (Group B) VACCINE SHARED DECISION-MAKING Aged Out No longer eligible based on patient's age to complete this topic MENINGOCOCCAL GROUPS A/C/Y/W VACCINE Aged Out No longer eligible based on patient's age to complete this topic Medical Devices Implanted Type Area Care Companion Device Identifier Shelf Expiration Date Model / Serial / Lot Cmnt Bone Plc R 40gm Grn Implanted:Qty: 1 on 08/01/2024 by Pilar Arroyo MD at [facility] Right: Knee [employer] 11/14/2026 [id number] / / [id number] Cmpnt Ptlr 31mm 1 Pg Wire Ascnt Arcm Kn Implanted:Qty: 1 on 08/01/2024 by Pilar Arroyo MD at [facility] Right: Knee [employer] 07/17/2027 [id number] / / [id number] Cmpnt Fem Kn Rt Cr Cmnt Prm Vngrd Intlk 62.5mm Implanted:Qty: 1 on 08/01/2024 by Pilar Arroyo MD at [facility] Right: Knee [employer] 04/14/2034 [id number] / / [id number] Tray Tib 67mm Kn Cocr I Beam Implanted:Qty: 1 on 08/01/2024 by Pilar Arroyo MD at [facility] Right: Knee [employer] 04/26/2034 [id number] / / [id number] Selvin Brng [id number] Vngrd Vivacit-E Kn Ant S Implanted:Qty: 1 on 08/01/2024 by Pilar Arroyo MD at [facility] Right: Knee [employer] 05/14/2029 [id number] / / [id number] Insurance [facility] MANAGED MEDICARE ADV Advance Directives * Full Code (Latest Code Status on File) Date Activated Date Inactivated Comments 08/01/2024 2:26 PM 08/02/2024 6:23 PM Care Teams Applications Administrator Relationship Specialty Start Date End Date Carmelo Dueñas MD PCP - General Internal Medicine 01/19/14 Pilar Arroyo MD Orthopedic Surgery 01/19/14
--- OUTSIDE RECORDS SUMMARY | 2025-01-29 18:29 | XMS_ITS | Encounter Summary ---
Author Organization [facility] Address [address] [place] [address] Care Team Providers Care Fiscal Economist Name Role Phone Carmelo Dueñas MD Primary Care Provider [phone]- [phone] Encounter Details Date Type Department Care Team (Late Contact Info) Description 07/06/2006 Outpatient Historical [facility] Internal Medicine [address] [address] Carmelo Dueñas MD [address] [place] [address] Social History Tobacco Use Types Packs/Day Years Used Date Smoking Tobacco: Never Assessed Comments Unknown Sex and Gender Information Value Date Recorded Sex Assigned at Not on file Legal Sex Female 4:47 AM SPLITTER MACHINE Gender Identity Not on file Sexual Orientation Not on file documented as of this encounter Last Filed Vital Signs Vital Sign Reading Time Taken Comments Blood Pressure 122/80 07/06/2006 1:45 PM CDT Pulse - - Temperature - - Respiratory Rate - - Oxygen Saturation - - Inhaled Oxygen Concentration - - Weight 59 kg (130 lb) 07/06/2006 1:45 PM CDT Height - - Body Mass Index - - documented in this encounter Plan of Treatment Upcoming Encounters Date Type Department Care Team (Late st Contact Info) Description 03/06/2025 4:40 PM SPLITTER MACHINE Office Visit [facility] Primary Care [address] [place] [address] Carmelo Dueñas [place] [address] [address] documented as of this encounter Visit Diagnoses Not on filedocumented in this encounter Care Teams Fiscal Economist Relationship Specialty Start Date End Date Carmelo Dueñas [place] [address] [place] [address] PCP - General 03/06/02 documented as of this encounter
--- OUTSIDE RECORDS SUMMARY | 2025-01-29 18:29 | XMS_ITS | Encounter Summary ---
Author Organization [facility] Address [address] [place] [address] Care Team Providers Care Manufacture Specialist Name Role Phone Carmelo Dueñas MD Primary Care Provider [phone] Encounter Details Date Type Department Care Team (Late st Contact Info) Description 04/12/2006 Orders Only [facility] Internal Medicine [address] [address] Carmelo Dueñas MD [address] [place] [address] Social History Tobacco Use Types Packs/Day Years Used Date Smoking Tobacco: Never Assessed Comments Unknown Sex and Gender Information Value Date Recorded Sex Assigned at Not on file Legal Sex Female 4:47 AM LAP POLISHER Gender Identity Not on file Sexual Orientation Not on file documented as of this encounter Progress Notes * Carmelo Dueñas MD - 07/08/2007 8:53 PM CDT TIME:11:45 am PATIENT`S HOME PHONE: PATIENT`S WORK PHONE: PATIENT`S INSURANCE: [facility] Responsible City [facility] WHO TOOK THE CALL: Dorota Keller R GENERAL INFORMATION ALTERNATIVE PHONE NUMBER: [phone] WHO CALLED: Patient called. CURRENT ALLERGY LIST: BEE STING CODEINE DERIVATIVES IODINE [facility] PHARM[facility]Y NUMBER: [phone] PROBLEMS: patient's mother just . Noemi will be going out of town for . She wouldlike something to help her get through this. She has had Xanax in the past, but medication before she used all. SECTION 1: REQUESTED ACTION maggie 04/12/06 at 11:48 am: MEDICATION REQUEST: Patient wants medications and can not come in. DOCTOR`S RESPONSE: tim 04/12/06 at 12:57 pm MEDICATIONS: Call in to Pharmacy ALPRAZOLAM ORAL TABLET 0.25 MG, 1 Two Times A Day, As Needed, 30 Dispensed, status: CONTINUED, 04/12/2006. please express my condolences FINAL ACTION: anita 04/12/06 at 02:03 pm Spoke with patient 04/12/06 at 02:03 pm. Called pharmacy at 04/12/06 at 02:03 pm. documented in this encounter Plan of Treatment Upcoming Encounters Date Type Department Care Team (Late st Contact Info) Description 03/06/2025 4:40 PM LAP POLISHER Office Visit [facility] Primary Care [facility] [address] [facility] [address] [place] [address] Carmelo Dueñas MD [address] [place] [address] documented as of this encounter Visit Diagnoses Not on filedocumented in this encounter Care Teams Manufacture Specialist Relationship Specialty Start Date End Date Carmelo Dueñas MD [address] [place] [phone] PCP - General 03/06/02 documented as of this encounter
--- OUTSIDE RECORDS SUMMARY | 2025-01-29 18:29 | XMS_ITS | Encounter Summary ---
Author Organization [facility] Address [address] [place] [address] Care Team Providers Care Trust Manager Name Role Phone Carmelo Dueñas MD Primary Care Provider [phone] Encounter Details Date Type Department Care Team (Late Contact Info) Description 12/07/2005 Outpatient Historical [facility] Internal Medicine [address] [address] [place]elo Dueñas [place] [address] [address] Social History Tobacco Use Types Packs/Day Years Used Date Smoking Tobacco: Never Assessed Comments Unknown Sex and Gender Information Value Date Recorded Sex Assigned at Not on file Legal Sex Female 4:47 AM COLOR PASTE MIXER Gender Identity Not on file Sexual Orientation Not on file documented as of this encounter Last Filed Vital Signs Vital Sign Reading Time Taken Comments Blood Pressure 140/90 12/07/2005 3:00 PM CDT Pulse - - Temperature - - Respiratory Rate - - Oxygen Saturation - - Inhaled Oxygen Concentration - - Weight 58.5 kg (129 lb) 12/07/2005 3:00 PM CDT Height - - Body Mass Index - - documented in this encounter Plan of Treatment Upcoming Encounters Date Type Department Care Team (Late Contact Info) Description 03/06/2025 4:40 PM COLOR PASTE MIXER Office Visit [facility] Primary Care [address] [place] [address] Carmelo Dueñas [place] [id number] [place] [address] documented as of this encounter Visit Diagnoses Not on filedocumented in this encounter Care Teams Trust Manager Relationship Specialty Start Date End Date Carmelo Dueñas [place] [id number] [place] [address] PCP - General 03/06/02 documented as of this encounter
--- OUTSIDE RECORDS SUMMARY | 2025-01-29 18:29 | XMS_ITS | Encounter Summary ---
Author Organization [facility] Address [address] [place] [address] Care Team Providers Care Supervisor Real Estate Office Name Role Phone Carmelo Dueñas MD Primary Care Provider +1- [phone] Encounter Details Date Type Department Care Team (Late st Contact Info) Description 09/01/2005 Orders Only [facility] Internal Medicine [address] [address] Carmelo Deuñ[place] [address] [address] Social History Tobacco Use Types Packs/Day Years Used Date Smoking Tobacco: Never Assessed Comments Unknown Sex and Gender Information Value Date Recorded Sex Assigned at Not on file Legal Sex Female 4:47 AM EDITOR GREETING CARD Gender Identity Not on file Sexual Orientation Not on file documented as of this encounter Progress Notes * Carmelo Dueñas MD - 11/24/2007 8:12 PM CDT WEIGHT: 128lbs BLOOD PRESSURE: 120/86 Right Arm Sitting NURSE NAME: Tim Orta N CHIEF COMPLAINT Patient here for follow up hyperlipidemia, hypertension. HISTORY: HISTORY: 272.4-HYPERLIPIDEMIA The patient is tolerating the medications, no complications noted. 401.1-HYPERTENSION ESSENTIAL BENIGN The patient denies chest pain, shortness of breath, dyspnea on exertion, pedal edema, or headache. The patient is tolerating the medication. 715.09-OSTEOARTHROSIS AND ALLIED DISORDERS The arthritis is stable. The patient relates good tolerance to the medication that is taken on an as needed basis. PHYSICAL EXAMINATION: CONSTITUTIONAL: GENERAL APPEARANCE: Healthy appearing patient in no distress. EARS, NOSE, MOUTH AND THROAT: ORAL: Inspection of gums, lips, palate, and teeth normal. No scars, lesions, or masses. Oral mucosaunremarkable with non-inflamed posterior pharynx. NECK/THYROID: Trachea midline. No thyroid enlargement, tenderness, or mass. No supraclavicular or cervical adenopathy. RESPIRATORY: Clear to auscultation and percussion. Normal respiratory effort. CARDIOVASCULAR: CARDIAC: Regular rhythm. No murmurs, rubs, or gallops. ARTERIAL: Aortic pulses of normal amplitude with no bruits. EDEMA/VARICOSITIES OF EXTREMITIES: No edema or varicosities. GASTROINTESTINAL: ABDOMEN: Soft, non-tender, without masses. Bowel sounds active. LIVER/SPLEEN/KIDNEY: No hepatosplenomegaly, tenderness or nodularity. Kidneys not palpable. ASSESSMENT/PLAN: 272.4-HYPERLIPIDEMIA ASSESSMENT: Will not change medication, continue to monitor for complications. A low cholesterol diet was encouraged. Weight loss was encouraged. Regular aerobic exercise was encouraged. The patient's thyroid status is being followed, and is known to be normal presently. 401.1-HYPERTENSION ESSENTIAL BENIGN ASSESSMENT: The blood pressure remains satisfactory. Will not change medication, continue to monitor for complications. The patient was encouraged to follow a low salt diet. Regular aerobic exercise was encouraged. Weight loss was discussed and encouraged. 715.09-OSTEOARTHROSIS AND ALLIED DISORDERS ASSESSMENT: The patient's osteoarthritis continues to remain stable. 733.90-OSTEOPENIA ASSESSMENT: stable on calcium 530.81-GASTROESOPHAGEAL REFLUX (GERD) ASSESSMENT: The patient's reflux esophagitis has not changed.intermittent epiosdes of chest discomfort, will try soem zantac, pepcid had helped MEDICATIONS: RANITIDINE HCL ORAL TABLET 150 MG, 1 Two Times A Day, 60 Dispensed, 5 Fills, status: NEW PRESCRIPTION, 09/01/2005. PREVENTIVE COUNSELING The patient was counseled regarding diet, regular self- examination of the breasts on a monthly basis, the appropriate use of alcohol, regular sustained exercise for at least 30 minutes 3-4 times per week, colorectal cancer screening, methods to avoid household and recreational injuries, obtaining and completing a living will with medical directives and a health care power ofattorney, and also to discuss these issues with other family members, diagnosis, treatment, and prevention of osteoporosis, importance of regular PAP smears, tobacco use, adult immunizations. RETURN VISIT : Patient instructed to return in 3 months. Electronically Signed by: Carmleo Dueñas MD on Thursday, September 01, 2005 documented in this encounter Plan of Treatment Upcoming Encounters Date Type Department Care Team (Late st Contact Info) Description 03/06/2025 4:40 PM EDITOR GREETING CARD Office Visit [facility] [address] [place] [address] [address] [place] [address] Carmelo Dueñas MD [address] [place] [address] documented as of this encounter Visit Diagnoses Not on filedocumented in this encounter Care Teams Supervisor Real Estate Office Relationship Specialty Start Date End Date Carmelo Dueñas MD [address] [place] [address] PCP - General 03/06/02 documented as of this encounter
--- OUTSIDE RECORDS SUMMARY | 2025-01-29 18:29 | XMS_ITS | Encounter Summary ---
Author Organization [facility] Address [address] [place] [address] Care Team Providers Care Credentials Specialist Name Role Phone Carmelo Dueñas MD Primary Care Provider +1- [phone] Encounter Details Date Type Department Care Team (Late st Contact Info) Description 10/29/2006 Orders Only [facility] Internal Medicine [address] [address] Carmelo Dueñas MD [address] [place] [address] Social History Tobacco Use Types Packs/Day Years Used Date Smoking Tobacco: Never Assessed Comments Unknown Sex and Gender Information Value Date Recorded Sex Assigned at Not on file Legal Sex Female 4:47 AM WELLFIELD TECHNICIAN Gender Identity Not on file Sexual Orientation Not on file documented as of this encounter Progress Notes * Carmelo Dueñas MD - 07/01/2007 5:16 PM CDT TIME:02:56 pm PATIENT`S HOME PHONE: PATIENT`S WORK PHONE: PATIENT`S INSURANCE: [employer] WHO TOOK THE CALL: Dalila Byrd L GENERAL INFORMATION ALTERNATIVE PHONE NUMBER: [phone] WHO CALLED: Patient called. SECTION 1: REQUESTED ACTION trudy 10/29/06 at 02:56 pm: TEST RESULT: Patient requests test results Lab work DOCTOR`S RESPONSE: tim 10/31/06 at 05:59 pm she missed her OV that why we did not call her - chol much better but still a little high, thyroid remains underactive, she needs to start meds fdor this MEDICATIONS: Call in to Pharmacy SYNTHROID ORAL TABLET 50 MCG, 1 Every Day, 30 Dispensed, 11 Fills, status: NEW PRESCRIPTION, 10/29/2006. repeat labs in 3 months, reschedule OV PT PROBLEMS & ORDERS: 272.4-HYPERLIPIDEMIA LAB ORDERS: Order number: [id number] Test Ordered: COMPREHENSIVE METABOLIC PANEL & GFR 1112 Order number: [id number] Test Ordered: LIPID PANEL 1078 Order number: [id number] Test Ordered: TSH 1720 SECTION 3: DOCTOR`S RESPONSE: tim 10/31/06 at 06:03 pm PT PROBLEMS & ORDERS: 244.9-HYPOTHYROIDISM FINAL ACTION: anabell 11/01/06 at 03:26 pm CALLED PT W/ RESULTS: Called patient with results. Booked appointment: 12/16 also mailed copy of labs and next lab req. Called pharmacy at 11/01/06 at 03:31 pm. Electronically Signed by: Candie Anderson on Wednesday, November 01, 2006 documented in this encounter Plan of Treatment Upcoming Encounters Date Type Department Care Team (Late st Contact Info) Description 03/06/2025 4:40 PM WELLFIELD TECHNICIAN Office Visit [facility] Primary Care [address] [place] [address] Carmelo Dueñas MD [address] [place] [address] documented as of this encounter Visit Diagnoses Not on filedocumented in this encounter Care Teams Credentials Specialist Relationship Specialty Start Date End Date Carmelo Dueñas MD [address] [place] [address] PCP - General 03/06/02 documented as of this encounter
--- OUTSIDE RECORDS SUMMARY | 2025-01-29 18:29 | XMS_ITS | Encounter Summary ---
Author Organization [facility] Address [address] [place] [address] Care Team Providers Care Credit Adjuster Name Role Phone Carmelo Dueñas MD Primary Care Provider +1- [phone] Encounter Details Date Type Department Care Team (Late Contact Info) Description 09/01/2005 Outpatient Historical [facility] Internal Medicine [address] [address] Carmelo Dueñas [place] [address] [address] Social History Tobacco Use Types Packs/Day Years Used Date Smoking Tobacco: Never Assessed Comments Unknown Sex and Gender Information Value Date Recorded Sex Assigned at Not on file Legal Sex Female 4:47 AM ADHESIVE BANDAGE MAKING OPERATOR Gender Identity Not on file Sexual Orientation Not on file documented as of this encounter Last Filed Vital Signs Vital Sign Reading Time Taken Comments Blood Pressure 120/86 09/01/2005 4:15 PM CDT Pulse - - Temperature - - Respiratory Rate - - Oxygen Saturation - - Inhaled Oxygen Concentration - - Weight 58.1 kg (128 lb) 09/01/2005 4:15 PM CDT Height - - Body Mass Index - - documented in this encounter Plan of Treatment Upcoming Encounters Date Type Department Care Team (Late Contact Info) Description 03/06/2025 4:40 PM ADHESIVE BANDAGE MAKING OPERATOR Office Visit [facility] Primary Care [address] [place] [address] Carmelo Dueñas [place] [id number] [place] [address] documented as of this encounter Visit Diagnoses Not on filedocumented in this encounter Care Teams Credit Adjuster Relationship Specialty Start Date End Date Carmelo Dueñas [place] [id number] [place] [address] PCP - General 03/06/02 documented as of this encounter
--- OUTSIDE RECORDS SUMMARY | 2025-01-29 18:29 | XMS_ITS | Encounter Summary ---
Author Organization [facility] Address [address] [place] [address] Care Team Providers Care Store Receiving Clerk Name Role Phone Carmelo Dueñas MD Primary Care Provider +1- [phone] Encounter Details Date Type Department Care Team (Late Contact Info) Description 07/20/2006 Outpatient Historical [facility] Internal Medicine [address] [address] [place]elo Dueñ[place] [address] [address] Social History Tobacco Use Types Packs/Day Years Used Date Smoking Tobacco: Never Assessed Comments Unknown Sex and Gender Information Value Date Recorded Sex Assigned at Not on file Legal Sex Female 4:47 AM AGRICULTURAL CHEMIST Gender Identity Not on file Sexual Orientation Not on file documented as of this encounter Last Filed Vital Signs Vital Sign Reading Time Taken Comments Blood Pressure 128/82 07/20/2006 3:45 PM CDT Pulse - - Temperature - - Respiratory Rate - - Oxygen Saturation - - Inhaled Oxygen Concentration - - Weight 58.1 kg (128 lb) 07/20/2006 3:45 PM CDT Height - - Body Mass Index - - documented in this encounter Plan of Treatment Upcoming Encounters Date Type Department Care Team (Late Contact Info) Description 03/06/2025 4:40 PM AGRICULTURAL CHEMIST Office Visit [facility] Primary Care [address] [place] [address] Carmelo Dueñas [place] [address] [place] [address] documented as of this encounter Visit Diagnoses Not on filedocumented in this encounter Care Teams Store Receiving Clerk Relationship Specialty Start Date End Date Carmelo Dueñas [place] [address] [place] [address] PCP - General 03/06/02 documented as of this encounter
--- OUTSIDE RECORDS SUMMARY | 2025-01-29 18:29 | XMS_ITS | Encounter Summary ---
Author Organization [facility] Address [address] [place] [address] Care Team Providers Care Sorting Supervisor Name Role Phone Carmelo Dueñas MD Primary Care Provider +1- [phone] Encounter Details Date Type Department Care Team (Late Contact Info) Description 10/14/2006 Orders Only [facility] Internal Medicine [address] [address] Carmelo Dueñas [place] [address] [facility] [address] [place] [address] Social History Tobacco Use Types Packs/Day Years Used Date Smoking Tobacco: Never Assessed Comments Unknown Sex and Gender Information Value Date Recorded Sex Assigned at Not on file Legal Sex Female 4:47 AM ULTRASONOGRAPHER Gender Identity Not on file Sexual Orientation Not on file documented as of this encounter Plan of Treatment Upcoming Encounters Date Type Department Care Team (Late Contact Info) Description 03/06/2025 4:40 PM ULTRASONOGRAPHER Office Visit [facility] Primary Care [address] [place] [address] Carmelo Dueñas [place] [address] [facility] [address] [place] [address] documented as of this encounter Visit Diagnoses Not on filedocumented in this encounter Care Teams Sorting Supervisor Relationship Specialty Start Date End Date Carmelo Dueñ[place] [address] [address] PCP - General 03/06/02 documented as of this encounter
--- OUTSIDE RECORDS SUMMARY | 2025-01-29 18:30 | XMS_ITS | Encounter Summary ---
Author Organization [facility] Address [address] [place] [address] Care Team Providers Care Field Care Advocate Name Role Phone Carmelo Dueñas MD Primary Care Provider +1- [phone] Reason for Visit * Reason Comments Results Encounter Details Date Type Department Care Team (Late st Contact Info) Description 12/01/2023 Telephone [facility] Internal Medicine [address] [address] Carmelo Dueñas MD [address] [place] [address] Results Social History Tobacco Use Types Packs/Day Years Used Date Smoking Tobacco: Former Cigarettes 20 0 10/17/1962 - 10/17/1982 Passive Smoke Exposure: Never Smokeless Tobacco: Never Alcohol Use Standard Drinks/Week Comments Yes 1 [...] than three times a week 01/23/2020 Attends [employer] Not on file 01/22 Active Member [...] on file Legal Sex Female 4:47 AM YOUTH DEVELOPMENT PROFESSIONAL Gender Identity Not on file Sexual Orientation Not on file 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 Job End Date 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 Topic: CPA Information Request - Results >> Dec 01, 2023 9:12 AM Elvira Perez wrote: Caller is requesting information about results from an order. ? Caller Name: Noemi Gaytan Callback Number: [phone] (home) Test Name: Mammogram Results Encounter notes are: Telephone encounter related to results is not available and was completed more than 7 days Verify that caller has called the correct provider that order the test. Did the caller call the correct provider? Yes Call Notes: Results were not given and the patient needs a call back documented in this encounter Plan of Treatment Upcoming Encounters Date Type Department Care Team (Late st Contact Info) Description 03/06/2025 4:40 PM YOUTH DEVELOPMENT PROFESSIONAL Office Visit [facility] Primary Care [address] [place] [address] Carmelo Dueñas MD [address] [place] [address] documented as of this encounter Visit Diagnoses Not on filedocumented in this encounter Care Teams Field Care Advocate Relationship Specialty Start Date End Date Carmelo Dueñas MD [address] [place] [address] PCP - General 03/06/02 documented as of this encounter
--- OUTSIDE RECORDS SUMMARY | 2025-01-29 18:30 | XMS_ITS | Encounter Summary ---
Author Organization [facility] Address [address] [place] [address] Care Team Providers Care Metal Drilling Machine Operator Name Role Phone Carmelo Dueñas MD Primary Care Provider +1- [phone] Encounter Details Date Type Department Care Team (Late st Contact Info) Description 02/04/2004 Outpatient Historical [facility] Internal Medicine [address] [address] Carmelo Dueñas [place] [id number] [place] [address] Social History Tobacco Use Types Packs/Day Years Used Date Smoking Tobacco: Never Assessed Comments Unknown Sex and Gender Information Value Date Recorded Sex Assigned at Not on file Legal Sex Female 4:47 AM POWER GENERATION TURBINE ROOM OPERATOR Gender Identity Not on file Sexual Orientation Not on file documented as of this encounter Last Filed Vital Signs Vital Sign Reading Time Taken Comments Blood Pressure 120/70 02/04/2004 1:45 PM POWER GENERATION TURBINE ROOM OPERATOR Pulse - - Temperature 36.6 C (97.9 F) 02/04/2004 1:45 PM POWER GENERATION TURBINE ROOM OPERATOR Respiratory Rate - - Oxygen Saturation - - Inhaled Oxygen Concentration - - Weight 57.6 kg (127 lb) 02/04/2004 1:45 PM POWER GENERATION TURBINE ROOM OPERATOR Height - - Body Mass Index - - documented in this encounter Plan of Treatment Upcoming Encounters Date Type Department Care Team (Late st Contact Info) Description 03/06/2025 4:40 PM POWER GENERATION TURBINE ROOM OPERATOR Office Visit [facility] Primary Care [address] [place] [address] Carmelo Dueñas [place] [address] [phone] documented as of this encounter Visit Diagnoses Not on filedocumented in this encounter Care Teams Metal Drilling Machine Operator Relationship Specialty Start Date End Date Carmelo Dueñ[place] [address] [address] PCP - General 03/06/02 documented as of this encounter
--- OUTSIDE RECORDS SUMMARY | 2025-01-29 18:30 | XMS_ITS | Encounter Summary ---
Author Organization [facility] Address [address] [place] [address] Care Team Providers Care Orthodontist Vice President Name Role Phone Carmelo Dueñas MD Primary Care Provider +1- [phone] Encounter Details Date Type Department Care Team (Late Contact Info) Description 04/02/2003 Outpatient Historical [facility] Internal Medicine [address] [address] Carmelo Dueñas MD [address] [place] [address] Social History Tobacco Use Types Packs/Day Years Used Date Smoking Tobacco: Never Assessed Comments Unknown Sex and Gender Information Value Date Recorded Sex Assigned at Not on file Legal Sex Female 4:47 AM LINEN KEEPER Gender Identity Not on file Sexual Orientation Not on file documented as of this encounter Last Filed Vital Signs Vital Sign Reading Time Taken Comments Blood Pressure 118/70 04/02/2003 3:45 PM LINEN KEEPER Pulse - - Temperature - - Respiratory Rate - - Oxygen Saturation - - Inhaled Oxygen Concentration - - Weight 52.6 kg (116 lb) 04/02/2003 3:45 PM LINEN KEEPER Height - - Body Mass Index - - documented in this encounter Plan of Treatment Upcoming Encounters Date Type Department Care Team (Late st Contact Info) Description 03/06/2025 4:40 PM LINEN KEEPER Office Visit [facility] Primary Care [address] [place] [address] Carmelo Dueñas [place] [address] [address] documented as of this encounter Visit Diagnoses Not on filedocumented in this encounter Care Teams Orthodontist Vice President Relationship Specialty Start Date End Date Carmelo Dueñas [place] [address] [place] [address] PCP - General 03/06/02 documented as of this encounter
--- OUTSIDE RECORDS SUMMARY | 2025-01-29 18:30 | XMS_ITS | Encounter Summary ---
Author Organization [facility] Address [address] [place] [address] Care Team Providers Care Fern Cutter Name Role Phone Carmelo Dueñas MD Primary Care Provider +1- [phone] Encounter Details Date Type Department Care Team (Late st Contact Info) Description 05/06/2007 Outpatient Historical [facility] Carmelo Dueñas [place] [address] [place] [address] Esophageal Reflux Social History Tobacco Use Types Packs/Day Years Used Date Smoking Tobacco: Never Assessed Comments Unknown Sex and Gender Information Value Date Recorded Sex Assigned at Not on file Legal Sex Female 4:47 AM SAMPLE TAILOR Gender Identity Not on file Sexual Orientation Not on file documented as of this encounter Plan of Treatment Upcoming Encounters Date Type Department Care Team (Late Contact Info) Description 03/06/2025 4:40 PM SAMPLE TAILOR Office Visit [facility] Primary Care [address] [place] [address] Carmelo Dueñas [place] [address] [facility] [address] [place] [address] documented as of this encounter Procedures Procedure Name Priority Date/Time Associated Diagnosis Comments XR ESOPHAGUS BARIUM SWALLOW Timed Study 05/06/2007 7:55 AM CDT documented in this encounter Results * XR ESOPHAGUS BARIUM SWALLOW (05/06/2007 7:55 AM CDT) Anatomical Region Laterality Modality Abdomen Other 05/06/2007 7:55 AM CDT Narrative 05/06/2007 11:36 AM CDT [facility] [address] [place], [place] [address] Admit Date: 05/06/2007 LOUISE GAYTAN Sex: F Admit Prov: CARMELO DUEÑAS Date: 1945 Primary Care Prov: CARMELO DUEÑAS CMRN: [id number] [id number] Ordering Prov: N/A Accession Number: [id number] Interpretation Esophagram barium swallow 05/06/2007 Clinical history: Chest pain, dysphagia Barium evaluation of the esophagus demonstrates normal well coordinated deglutition. Appreciable cricopharyngeus muscle hypertrophy is not seen. Some mild degenerative spondylosis is seen of the anterior cervical spine but without appreciable encroachment on the cervical esophagus. The esophagus is generally normal in caliber and smooth in outline and shows relatively good motility. There is a minimally perceptible Schatzki's ring at the gastroesophageal junction with a minimal associated hiatal hernia. Definite reflux was not observed during the course of the exam. There is no evidence of stricture or obstructing esophageal lesion. Impression: Minimal Schatzki's ring with minimal associated hiatal hernia and otherwise negative esophageal findings. . Dictated by: PRINCESS COTTO 05/06/2007 08:14 Electronically signed by: PRINCESS COTTO 05/06/2007 11:36 Transcribed: 05/06/2007 11:15 AMK Procedure Note Provider, Historical - 05/06/2007 [facility] [address] [place], [place] [address] Admit Date: 05/06/2007 LOUISE GAYTAN Sex: F Admit Prov: CARMELO DUEÑAS Date: 1945 Primary Care Prov: CARMELO DUEÑAS CMRN: [id number] Room: [facility] SSN: [id number] IMAGING SERVICES Ordering Prov: N/A Interpretation Esophagram barium swallow 05/06/2007 Clinical history: Chest pain, dysphagia Barium evaluation of the esophagus demonstrates normal wellcoordinated deglutition. Appreciable cricopharyngeus muscle hypertrophy is notseen. Some mild degenerative spondylosis is seen of the anterior cervicalspine but without appreciable encroachment on the cervical esophagus. The esophagus is generally normal in caliber and smooth in outline andshows relatively good motility. There is a minimally perceptible Schatzki'sring at the gastroesophageal junction with a minimal associated hiatalhernia. Definite reflux was not observed during the course of the exam. Thereis no evidence of stricture or obstructing esophageal lesion. Impression: Minimal Schatzki's ring with minimal associated hiatalhernia and otherwise negative esophageal findings. . Dictated by: PRINCESS COTTO 05/06/2007 08:14 Electronically signed by: PRINCESS COTTO 05/06/2007 11:36 Transcribed: 05/06/2007 11:15 AMK Carmelo Dueñas MD DIAGNOSTIC IMAGING ORDERAB LES Final Result documented in this encounter Visit Diagnoses Diagnosis Esophageal reflux documented in this encounter Care Teams Fern Cutter Relationship Specialty Start Date End Date Carmelo [place] [address] [address] PCP - General 03/06/02 documented as of this encounter
--- OUTSIDE RECORDS SUMMARY | 2025-01-29 18:30 | XMS_ITS | Clinical Summary ---
Author Organization [id number] [place] Address [address] [place] [address] Care Team Providers Care Paint Line Operator Name Role Phone Carmelo Dueñas MD Primary Care Provider +1 [phone] Allergies Active Allergy Reactions Criticality Noted Date Comments Allergen Nrw-Mkuce-Luzbw Bee Swelling Medium 10/30/2003 Codeine Seizures,Other (See comments),Dizziness, Itching High 05/10/2002 Iodinated Contrast Media Nausea And Vomiting Low Iodine Hives,Urticaria High 05/10/2002 Prednisone Other (See comments) 06/24/2018 Fits of rage and crying Sulfa (Sulfonamide Antibiotics) Rash Medium 08/10/2002 Sulfasalazine Itching Low 01/19/2014 Medications ALPRAZolam (XANAX) 0.25 mg tablet Take 1 tablet (0.25 mg total) by mouth 3 (three) times a day as needed 3 Active fluticasone propionate (FLONASE) 50 mcg/actuation nasal spray Administer 2 sprays into affected nostril(s) daily 2 Active atorvastatin (LIPITOR) 40 mg tablet Take 1 tablet (40 mg total) by mouth daily 3 Active omeprazole (PriLOSEC) 20 mg capsule Take 1 capsule (20 mg total) by mouth daily 3 Active levothyroxine (SYNTHROID) 50 mcg tablet Take 1 tablet (50 mcg total) by mouth daily 3 Active lisinopriL (PRINIVIL,ZESTR IL) 40 mg tablet Take 1 tablet (40 mg total) by mouth daily 3 Active triamterene-hyd roCHLOROthiazid e 37.5-25 mg per tablet/capsule Take 1 tablet/capsule by mouth daily 4 Active albuterol HFA (PROVENTIL HFA,VENTOLIN HFA,PROAIR HFA) 90 mcg/actuation inhaler USE 2 INHALATIONS BY MOUTH EVERY 6 HOURS NEEDED FOR SHORTNESS OF BREATH 2 Active traZODone (DESYREL) 50 mg tablet Take 0.5-1 tablets (25-50 mg total) by mouth daily 5 Active meloxicam (MOBIC) 15 mg tablet Take 1 tablet (15 mg total) by mouth daily 3 Active ergocalciferol (VITAMIN D) 50,000 unit capsule Take 1 capsule (50,000 Units total) by mouth once a week 5 Active dorzolamide-rosita oloL (COSOPT) 22.3-6.8 mg/mL ophthalmic solution 1 drop 2 (two) times a day 1 Active albuterol 5 mg/mL nebulizer solution Inhale 0.5 mL (2.5 mg total) every 4 (four) hours as needed 9 Active EPINEPHrine (EPIPEN 2-MILTON) 0.3 mg/0.3 mL auto-injection syringe 6 Active travoprost (Travatan Z) 0.004 % drops 1 drop daily 4 Active Active Problems No known active problems Encounters Date Type Department Care Team Description 01/29/2025 4:00 PM COUNTY ATTORNEY Office Visit [facility] at [address] [address] Alexandria Robles NP Lower abdominal pain (Primary Dx) from Last 3 Months Surgical History Surgery Date Site/Laterality Comments REPLACEMENT TOTAL KNEE Right Social History Tobacco Use Types Packs/Day Years Used Date Smoking Tobacco: Never Assessed Comments No Sex and Gender Information Value Date Recorded Sex Assigned at Not on file Legal Sex Female 4:42 PM COUNTY ATTORNEY Gender Identity Not on file Sexual Orientation Not on file Last Filed Vital Signs Vital Sign Reading Time Taken Comments Blood Pressure 122/70 01/29/2025 4:02 PM COUNTY ATTORNEY Pulse 79 01/29/2025 4:02 PM COUNTY ATTORNEY Temperature 36.2 C (97.2 F) 01/29/2025 4:02 PM COUNTY ATTORNEY Respiratory Rate 16 01/29/2025 4:02 PM COUNTY ATTORNEY Oxygen Saturation 97% 01/29/2025 4:02 PM COUNTY ATTORNEY Inhaled Oxygen Concentration - - Weight 54.9 kg (121 lb) 01/29/2025 4:02 PM COUNTY ATTORNEY Height 149.9 cm (4' 11) 01/29/2025 4:02 PM COUNTY ATTORNEY Body Mass Index 24.44 01/29/2025 4:02 PM COUNTY ATTORNEY Plan of Treatment Health Maintenance Due Date Last Done Comments Depression Screening 1945 Fall Risk Assessment 1945 Hepatitis C Screening 1945 Hepatitis B Screening 1964 Well Visit 65+ 08/21/2011 Covid-19 Vaccine (2024-2 6 season) 2024 11/21/2020, 05/08/2020, 04/19/2020 Influenza Vaccine (#1) 2024 , 10/30/2018, 11/01/2017, Additional history exists DTaP/Tdap/Td Vaccine (2 - Td or Tdap) 01/14/2025 01/14/2015, 02/15/2002 Osteoporosis Screening-Bone Density Scan 10/20/2025 10/21/2023, 10/21/2023, 09/24/2020, Additional history exists Pneumococcal vaccine 65+ Completed 10/08/2014, 04/2012 Zoster Vaccine Completed 12/16/2021, 10/2021, 08/15/2010 Procedures Procedure Name Priority Date/Time Associated Diagnosis Comments POCT URINALYSIS DIPSTICK Routine 01/29/2025 4:11 PM COUNTY ATTORNEY Lower abdominal pain from Last 3 Months Results * (ABNORMAL) POCT urinalysis dipstick (01/29/2025 4:11 PM COUNTY ATTORNEY) Color, Urine, POC [place] Comment:azo Clarity, ur, POC Clear Clear Glucose, ur, POC Negative Negative Bilirubin, ur, POC Negative Negative Ketones, ur, POC Negative Negative Specific [place], POC 1.010 1.003 - 1.030 Blood, ur, POC Negative Negative pH, ur, POC 6.5 5.0 - 8.0 Protein, ur, POC Negative Negative Urobilinogen, urine, POC 1.0 0.2 - 1.0 mg/dL Nitrite, ur, POC Positive(A) Negative Leukocytes, ur, POC Negative Negative Lot Number [id number] Urine 01/29/2025 4:11 PM COUNTY ATTORNEY Alexandria Robles DOUBLE BACKER POINT OF CARE TEST ORDERAB LES Final Result from Last 3 Months Insurance [facility] MEDICARE ADVANTAGE Care Teams Paint Line Operator Relationship Specialty Start Date End Date Carmelo Dueñas MD [address] [address] PCP - General Internal Medicine 01/29/25
--- OUTSIDE RECORDS SUMMARY | 2025-01-29 18:30 | XMS_ITS | Encounter Summary ---
Author Organization [facility] Address [address] [place] [address] Care Team Providers Care Research Attorney Name Role Phone Carmelo Dueñas MD Primary Care Provider +1- [phone] Encounter Details Date Type Department Care Team (Late Contact Info) Description 12/16/2006 Outpatient Historical [facility] Internal Medicine [address] [address] Carmelo Dueñas MD [address] [place] [address] Social History Tobacco Use Types Packs/Day Years Used Date Smoking Tobacco: Never Assessed Comments Unknown Sex and Gender Information Value Date Recorded Sex Assigned at Not on file Legal Sex Female 4:47 AM TELEVISION PRODUCTION TECHNICIAN Gender Identity Not on file Sexual Orientation Not on file documented as of this encounter Last Filed Vital Signs Vital Sign Reading Time Taken Comments Blood Pressure 110/70 12/16/2006 9:15 AM CDT Pulse - - Temperature - - Respiratory Rate - - Oxygen Saturation - - Inhaled Oxygen Concentration - - Weight 59 kg (130 lb) 12/16/2006 9:15 AM CDT Height - - Body Mass Index - - documented in this encounter Plan of Treatment Upcoming Encounters Date Type Department Care Team (Late st Contact Info) Description 03/06/2025 4:40 PM TELEVISION PRODUCTION TECHNICIAN Office Visit [facility] Primary Care [address] [place] [address] Carmelo Dueñas [place] [address] [address] documented as of this encounter Visit Diagnoses Not on filedocumented in this encounter Care Teams Research Attorney Relationship Specialty Start Date End Date Carmelo Dueñas [place] [id number] [place] [address] PCP - General 03/06/02 documented as of this encounter
--- OUTSIDE RECORDS SUMMARY | 2025-01-29 18:30 | XMS_ITS | Encounter Summary ---
Author Organization [facility] Address [address] [place] [address] Care Team Providers Care Talent Development Analyst Name Role Phone Carmelo Dueñas MD Primary Care Provider +- [phone] Encounter Details Date Type Department Care Team (Latest Contact Info) Description 04/30/2005 Outpatient Historical [facility] Carmelo Dueñas MD [address] [place] [address] [address] [place] [address] Other Screening Mammogram (Primary Dx) Social History Tobacco Use Types Packs/Day Years Used Date Smoking Tobacco: Never Assessed Comments Unknown Sex and Gender Information Value Date Recorded Sex Assigned at Not on file Legal Sex Female 4:47 AM CLAY BURNER Gender Identity Not on file Sexual Orientation Not on file documented as of this encounter Plan of Treatment Upcoming Encounters Date Type Department Care Team (Late st Contact Info) Description 03/06/2025 4:40 PM CLAY BURNER Office Visit [facility] Primary Care [facility] [address] [place] [address] [address] [place] [phone] Carmelo Dueñas [place] [id number] [place] [address] [address] [place] [address] documented as of this encounter Visit Diagnoses Diagnosis Other screening mammogram- Primary documented in this encounter Care Teams Talent Development Analyst Relationship Specialty Start Date End Date Carmelo Dueñas [place] [id number] [place] [address] [address] [place] [address] PCP - General 03/06/02 documented as of this encounter
--- OUTSIDE RECORDS SUMMARY | 2025-01-29 18:30 | XMS_ITS | Encounter Summary ---
Author Organization [facility] Address [address] [place] [address] Care Team Providers Care Station Manager Name Role Phone Carmelo Dueñas MD Primary Care Provider +1- [phone] Reason for Visit * Reason Comments Question Encounter Details Date Type Department Care Team (Late st Contact Info) Description 05/23/2024 Telephone [facility] [address] [place] [address] Carmelo Dueñas MD [address] [place] [address] Question Social History Tobacco Use Types Packs/Day Years Used Date Smoking Tobacco: Former Cigarettes 20 0 10/17/1962 - 10/17/1982 Passive Smoke Exposure: Past Smokeless Tobacco: Never Alcohol Use Standard Drinks/Week [...] than three times a week 01/23/2020 Attends [employer] Not on file 01/22 Active Member [...] on file Legal Sex Female 4:47 AM MOTION PICTURE CAMERA LENS TECHNICIAN Gender Identity Not on file Sexual Orientation Not on file 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 * Telephone Encounter - Linda Santos - 05/23/2024 6:31 PM CDT Nothing in RightFax at this time. * Telephone Encounter - Dana Calderon - 05/23/2024 9:47 AM CDT Copied from [facility] #[id number]. Topic: Patient or Caregiver Communication Request >> May 23, 2024 9:44 AM Dana Linn wrote: Patient or Caregiver requesting advice Caller: Noemi Gaytan Patient/Caregiver Callback Number: [phone] Call Notes: Patient states dr anderson office where she is getting knee surgery states they faxed over something 05/[address] dueñas to clear her for surgery, states they stated for her to call to see if office received it, agent advised not received, please call documented in this encounter Plan of Treatment Upcoming Encounters Date Type Department Care Team (Late st Contact Info) Description 03/06/2025 4:40 PM MOTION PICTURE CAMERA LENS TECHNICIAN Office Visit [facility] [address] [place] [phone] Carmelo Dueñas MD [address] [place] [address] documented as of this encounter Visit Diagnoses Not on filedocumented in this encounter Care Teams Station Manager Relationship Specialty Start Date End Date Carmelo Dueñas MD [address] [place] [phone] PCP - General 03/06/02 documented as of this encounter
--- OUTSIDE RECORDS SUMMARY | 2025-01-29 18:30 | XMS_ITS | Encounter Summary ---
Author Organization [facility] Address [address] [place] [address] Care Team Providers Care Seed Pelleter Name Role Phone Carmelo Dueñas MD Primary Care Provider +1- [phone] Encounter Details Date Type Department Care Team (Late Contact Info) Description 01/20/2007 Outpatient Historical [facility] Internal Medicine [address] [address] [place]elo [place] [address] [facility] [address] [place] [address] Social History Tobacco Use Types Packs/Day Years Used Date Smoking Tobacco: Never Assessed Comments Unknown Sex and Gender Information Value Date Recorded Sex Assigned at Not on file Legal Sex Female 4:47 AM SECURITY SYSTEMS INTEGRATOR Gender Identity Not on file Sexual Orientation Not on file documented as of this encounter Plan of Treatment Upcoming Encounters Date Type Department Care Team (Late Contact Info) Description 03/06/2025 4:40 PM SECURITY SYSTEMS INTEGRATOR Office Visit [facility] Primary Care [address] [place] [address] [place]elo [place] [address] [facility] [address] [place] [address] documented as of this encounter Visit Diagnoses Not on filedocumented in this encounter Care Teams Seed Pelleter Relationship Specialty Start Date End Date Carmelo Dueñ[place] [address] [address] PCP - General 03/06/02 documented as of this encounter
--- OUTSIDE RECORDS SUMMARY | 2025-01-29 18:30 | XMS_ITS | Encounter Summary ---
Author Organization [email or web address] Address [address] [place] [address] Care Team Providers Care Instrument Technician Apprentice Name Role Phone Carmelo Dueñas MD Primary Care Provider +1- [phone] Encounter Details Date Type Department Care Team (Late st Contact Info) Description 10/11/2014 Nurse Triage Report [facility] ABSTRACTION Omaira Mg, RN [address] [address] Social History Tobacco Use Types Packs/Day Years Used Date Smoking Tobacco: Former Cigarettes 20 0 10/17/1962 - 10/17/1982 Smokeless Tobacco: Never Alcohol Use Standard Drinks/Week Comments Yes 0 (1 standard drink = 0.6 oz pur e alcohol) occasional Comments No Sex and Gender Information Value Date Recorded Sex Assigned at Not on file Legal Sex Female 4:47 AM TRUCK RENTAL CLERK Gender Identity Not on file Sexual Orientation Not on file 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 Job End Date Not on file Not on file Not on file Not on file documented as of this encounter Progress Notes * Omaira Mg RN - 10/11/2014 6:53 PM CDT CHART DOCUMENTATION ONLY Call Type: Triage Call Presenting Problem: I had some numbess in my hands. Report feedback to Dr Dueñas Associated Symptoms: Denies Onset: 2 hours ago, occured twice Location: both arms/hands Pain Assessment: 1 - 10 with 10 being the most severe pain Denies Treatment so far for current presenting problem: Denies History (Clinical Problems): Very active w/ yard work and knitting. Resolved with movement w/in 1-2 minutes. (HTN) Medications: Reviewed w/ caller in Epic Medication reactions: Reviewed w/ caller in Epic <<<<<<<< TRIAGE NOTE >>>>>>>> <<<<<<<< TRIAGE/OUTCOME >>>>>>>> Guideline Title: Numbness or Tingling Recommended Disposition: See Provider within 72 Hours Original Inclination: Call Provider/See in 24 Intended Action: Call or see Provider>24 hrs Physician Contacted: No New or worsening change in sensation (paresthesias) in extremities AND no other symptoms ? YES documented in this encounter Plan of Treatment Upcoming Encounters Date Type Department Care Team (Late st Contact Info) Description 03/06/2025 4:40 PM TRUCK RENTAL CLERK Office Visit [facility] Primary Care [address] [place] [address] Carmelo Dueñas [place] [id number] [place] [address] [address] [place] [address] documented as of this encounter Visit Diagnoses Not on filedocumented in this encounter Care Teams Instrument Technician Apprentice Relationship Specialty Start Date End Date Carmelo Dueñas [place] [id number] [place] [address] [address] [place] [address] PCP - General 03/06/02 documented as of this encounter
--- OUTSIDE RECORDS SUMMARY | 2025-01-29 18:30 | XMS_ITS | Encounter Summary ---
Author Organization [facility] Address [address] [place] [address] Care Team Providers Care Fund Controller Name Role Phone Carmelo Dueñas MD Primary Care Provider +1- [phone] Encounter Details Date Type Department Care Team (Late st Contact Info) Description 05/15/2005 Orders Only [facility] Internal Medicine [address] [address] Carmelo Dueñas MD [address] [place] [address] Social History Tobacco Use Types Packs/Day Years Used Date Smoking Tobacco: Never Assessed Comments Unknown Sex and Gender Information Value Date Recorded Sex Assigned at Not on file Legal Sex Female 4:47 AM LONG WINDER TENDER Gender Identity Not on file Sexual Orientation Not on file documented as of this encounter Progress Notes * Carmelo Dueñas MD - 11/24/2007 7:35 PM CDT TIME:01:33 pm PATIENT`S HOME PHONE: PATIENT`S WORK PHONE: PATIENT`S INSURANCE: [facility] WHO TOOK THE CALL: Siim Velázquez S GENERAL INFORMATION WHO CALLED: Pharmacy [phone] SECTION 1: REQUESTED ACTION browss 05/15/05 at 01:34 pm: MEDICATION REQUEST: MEDICATION REQUEST: Patient requests a refill. Epipen 3mg last refilled 10/30/03 DOCTOR`S RESPONSE: tim 05/15/05 at 01:36 pm MEDICATIONS: EPIPEN INTRAMUSCULAR DEVICE 1:1000, TAKE DIRECTED, 1 Dispensed, status: CONTINUED, 05/15/2005. FINAL ACTION: browss 05/15/05 at 01:52 pm Called pharmacy at 05/15/05 at 01:52 pm. documented in this encounter Plan of Treatment Upcoming Encounters Date Type Department Care Team (Late st Contact Info) Description 03/06/2025 4:40 PM LONG WINDER TENDER Office Visit [facility] [address] [place] [address] Carmelo Dueñas MD [address] [place] [address] documented as of this encounter Visit Diagnoses Not on filedocumented in this encounter Care Teams Fund Controller Relationship Specialty Start Date End Date Carmelo Dueñas MD [address] [place] [address] PCP - General 03/06/02 documented as of this encounter
--- OUTSIDE RECORDS SUMMARY | 2025-01-29 18:30 | XMS_ITS | Encounter Summary ---
Author Organization [facility] Address [address] [place] [address] Care Team Providers Care Architectural Engineering Teacher Name Role Phone Carmelo Dueñas MD Primary Care Provider +1- [phone] Encounter Details Date Type Department Care Team (Late st Contact Info) Description 04/07/2005 Orders Only [facility] Internal Medicine [address] [address] Carmelo Dueñas MD [address] [place] [address] Social History Tobacco Use Types Packs/Day Years Used Date Smoking Tobacco: Never Assessed Comments Unknown Sex and Gender Information Value Date Recorded Sex Assigned at Not on file Legal Sex Female 4:47 AM MUSCULOSKELETAL PHYSIOTHERAPIST Gender Identity Not on file Sexual Orientation Not on file documented as of this encounter Progress Notes * Carmelo Dueñas MD - 11/24/2007 3:37 PM CDT TIME:09:19 am PATIENT`S HOME PHONE: PATIENT`S WORK PHONE: PATIENT`S INSURANCE: WHO TOOK THE CALL: Jennifer Moreira GENERAL INFORMATION PCP: lamberto WHO CALLED: Patient called. ALTERNATIVE PHONE NUMBER: [phone] PHARMACY NUMBER: [phone] SECTION 1: REQUESTED ACTION [email or web address] 04/07/05 at 09:21 am: MEDICATION REQUEST: MEDICATION REQUEST: Patient requests a refill. lovastatin lisinopril triameterene hctz Has appt for 04-23-05 but out of meds DOCTOR`S RESPONSE: [email or web address] 04/07/05 at 10:31 am MEDICATIONS: LISINOPRIL ORAL TABLET 40 MG, 1 Every Day, 90 Dispensed, 3 Fills, status: CONTINUED, 04/07/2005. TRIAMTERENE-HCTZ ORAL TABLET 37.5-25 MG, 1 Every Morning, 90 Dispensed, 3 Fills, status: CONTINUED,04/07/2005. LOVASTATIN ORAL TABLET 40 MG, 1 Every Day, 90 Dispensed, 3 Fills, status: CONTINUED, 04/07/2005. FINAL ACTION: [email or web address] 04/07/05 at 10:50 am Called pharmacy at 04/07/05 at 10:50 am. Electronically Signed by: Jennifer Moreira on Thursday, April 07, 2005 documented in this encounter Plan of Treatment Upcoming Encounters Date Type Department Care Team (Late st Contact Info) Description 03/06/2025 4:40 PM MUSCULOSKELETAL PHYSIOTHERAPIST Office Visit [facility] Primary Care [facility] [address] [facility] [address] [place] [address] Carmelo Dueñas MD [address] [place] [address] documented as of this encounter Visit Diagnoses Not on filedocumented in this encounter Care Teams Architectural Engineering Teacher Relationship Specialty Start Date End Date Carmelo Dueñas MD [address] [place] [phone] PCP - General 03/06/02 documented as of this encounter
--- OUTSIDE RECORDS SUMMARY | 2025-01-29 18:30 | XMS_ITS | Encounter Summary ---
Author Organization [facility] Address [address] [place] [address] Care Team Providers Care Personal Fitness Manager Name Role Phone Carmelo Dueñas MD Primary Care Provider +1- [phone] Encounter Details Date Type Department Care Team (Late st Contact Info) Description 07/20/2006 Orders Only [facility] Internal Medicine [address] [address] Carmelo Dueñ[place] [address] [address] Social History Tobacco Use Types Packs/Day Years Used Date Smoking Tobacco: Never Assessed Comments Unknown Sex and Gender Information Value Date Recorded Sex Assigned at Not on file Legal Sex Female 4:47 AM PERFECT BINDER FEEDER OFFBEARER Gender Identity Not on file Sexual Orientation Not on file documented as of this encounter Progress Notes * Carmelo Dueñas MD - 07/06/2007 1:46 PM CDT CENTRAL TEST SCHEDULING DATE: JUL 20, 2006 Note created by: Funmi Vanessa E 04:55 p Patient Name : LOUISE GAYTAN Address: [facility] [place] [address] D.O.B: 1945 SSN: [id number] Parent/Guardian if applicable: Patient Insurance: ID#: Group#: ORDER(S) #: [id number] mamm BEST TO CALL HOME. BEST TIME TO CALL: ANYTIME. MAY WE LEAVE MESSAGE AT THAT NUMBER: YES, LEAVE MESSAGE. PLEASE SCHEDULE THE APPOINTMENT AT THE FOLLOWING LOCATION: [place]. TEST PRIORITY: 2 - 7 DAYS. SPECIAL SCHEDULING INSTRUCTIONS: ORDERING PHYSICIAN: CARMELO DUEÑAS MD OFFICE FIELD SERVICER & PHONE: Funmi Vanessa E ORDER PRINTED BY: Omaira Diane M [place]. APPOINTMENT DATE : 07/23/2006 ( 10:40) Pre-authorization number: [id number] FINAL ACTION Spoke with patient. * Carmelo Dueñas MD - 07/06/2007 1:46 PM CDT WEIGHT: 128lbs BLOOD PRESSURE: 128/82 Right Arm Sitting NURSE NAME: Candie Anderson J CHIEF COMPLAINT Patient here for follow up hypertension, hyperlipidemia. she is tired a lot and has a recurrent sore thraot we discussed possible depression after her mother recently she has not been able to lose weigh t and is very tired HISTORY: HISTORY: 272.4-HYPERLIPIDEMIA The patient`s weight is the same. The patient is tolerating the medications, no complications noted. The patient`s most recent labs reviewed.had missed a few dsoes 346.90-MIGRAINE HEADACHE The patient relates that the migraine headaches are stable. No complications noted from the medication presently being used, patient uses tryptan acutely with good results. 401.1-HYPERTENSION ESSENTIAL BENIGN The patient denies chest pain, shortness of breath, dyspnea on exertion, pedal edema, or headache. The patient is tolerating the medication. The blood pressure readings taken outside the office since the last visit have been in the target range. 530.81-GASTROESOPHAGEAL REFLUX (GERD) The patient's dyspeptic symptoms remain stable. 715.09-OSTEOARTHROSIS AND ALLIED DISORDERS The arthritis is stable. 733.90-OSTEOPENIA The patient's osteopenia remains stable. Currently the patient is off all medication. PHYSICAL EXAMINATION: CONSTITUTIONAL: GENERAL APPEARANCE: Healthy appearing [...] rhythm. No murmurs, rubs, or gallops. ARTERIAL: No aortic bruits. EDEMA/VARICOSITIES OF EXTREMITIES: No edema or varicosities. GASTROINTESTINAL: ABDOMEN: Soft, non-tender, without masses. Bowel sounds active. LIVER/SPLEEN/KIDNEY: No hepatosplenomegaly, tenderness or nodularity. Kidneys not palpable. ASSESSMENT/PLAN: 272.4-HYPERLIPIDEMIA ASSESSMENT: Will not change medication, continue to monitor for complications. A low cholesterol diet was encouraged. Weight loss was encouraged. Regular aerobic exercise was encouraged. The patient's thyroid status is being followed. LAB ORDERS: 6-8 weeks Order number: [id number] Test Ordered: COMPREHENSIVE METABOLIC PANEL & GFR 1112 Order number: [id number] Test Ordered: LIPID PANEL 1078 Order number: [id number] Test Ordered: TSH 1720 346.90-MIGRAINE HEADACHE ASSESSMENT: The patient's migraine headaches have improved. 401.1-HYPERTENSION ESSENTIAL BENIGN ASSESSMENT: The blood pressure remains satisfactory. Will not change medication, continue to monitor for complications. 530.81-GASTROESOPHAGEAL REFLUX (GERD) ASSESSMENT: The patient's reflux esophagitis continues to remain stable. 715.09-OSTEOARTHROSIS AND ALLIED DISORDERS ASSESSMENT: The patient's osteoarthritis continues to remain stable. 733.90-OSTEOPENIA ASSESSMENT: stable V76.10-SCREENING FOR CA OF BREAST LAB ORDERS: Order number: [id number] Test Ordered: MAMMOGRAM BI-LATERAL (2 VIEWS) HEALTH MAINTENANCE: LAST DATE HORMONE REPLACE DISCUSSED: 07/22. DISCUSSED SMOKING: ExS. INJURY PREVENTION DISCUSSED: 07/22. DIET AND EXERCISE DISCUSSED: 07/22. ADVANCED DIRECTIVES DISCUSSED: 07/22. TIME PHYSICIAN WITH PATIENT: TOTAL: 25 minutes. TIME PATIENT COUNSELED/CARE COORDINATED: 15 minutes. REGARDING: Counseling regarding depression.grief issues PREVENTIVE COUNSELING The patient was counseled regarding [...] tobacco use, adult immunizations. RETURN VISIT : Instructed to call if not improving. Patient instructed to return in 3 months. Electronically Signed by: Carmelo Dueñas MD on Thursday, July 20, 2006 documented in this encounter Plan of Treatment Upcoming Encounters Date Type Department Care Team (Late st Contact Info) Description 03/06/2025 4:40 PM PERFECT BINDER FEEDER OFFBEARER Office Visit [facility] [address] [place] [address] Carmelo Dueñas MD [address] [place] [address] documented as of this encounter Visit Diagnoses Not on filedocumented in this encounter Care Teams Personal Fitness Manager Relationship Specialty Start Date End Date Carmelo Dueñas MD [address] [place] [address] PCP - General 03/06/02 documented as of this encounter
--- OUTSIDE RECORDS SUMMARY | 2025-01-29 18:30 | XMS_ITS | Encounter Summary ---
Author Organization [facility] Address [address] [place] [address] Care Team Providers Care Senior Economist Name Role Phone Carmelo Dueñas MD Primary Care Provider +1- [phone] Encounter Details Date Type Department Care Team (Late Contact Info) Description 08/24/2005 Outpatient Historical [facility] Internal Medicine [address] [address] Carmelo Dueñas [place] [address] [address] Social History Tobacco Use Types Packs/Day Years Used Date Smoking Tobacco: Never Assessed Comments Unknown Sex and Gender Information Value Date Recorded Sex Assigned at Not on file Legal Sex Female 4:47 AM PRINTED CIRCUIT BOARD PANELS DEVELOPER Gender Identity Not on file Sexual Orientation Not on file documented as of this encounter Last Filed Vital Signs Vital Sign Reading Time Taken Comments Blood Pressure 130/80 08/24/2005 1:30 PM CDT Pulse - - Temperature - - Respiratory Rate - - Oxygen Saturation - - Inhaled Oxygen Concentration - - Weight 57.2 kg (126 lb) 08/24/2005 1:30 PM CDT Height - - Body Mass Index - - documented in this encounter Plan of Treatment Upcoming Encounters Date Type Department Care Team (Late Contact Info) Description 03/06/2025 4:40 PM PRINTED CIRCUIT BOARD PANELS DEVELOPER Office Visit [facility] Primary Care [address] [place] [address] Carmelo Dueñas [place] [id number] [place] [address] documented as of this encounter Visit Diagnoses Not on filedocumented in this encounter Care Teams Senior Economist Relationship Specialty Start Date End Date Carmelo Dueñas [place] [id number] [place] [address] PCP - General 03/06/02 documented as of this encounter
--- OUTSIDE RECORDS SUMMARY | 2025-01-29 18:30 | XMS_ITS | Encounter Summary ---
Author Organization [facility] Address [address] [place] [address] Care Team Providers Care Study Specialist Name Role Phone Carmelo Dueñas MD Primary Care Provider +1- [phone] Encounter Details Date Type Department Care Team (Late Contact Info) Description 01/20/2007 Outpatient Historical [facility] Internal Medicine [address] [address] [place]elo [place] [address] [facility] [address] [place] [address] Social History Tobacco Use Types Packs/Day Years Used Date Smoking Tobacco: Never Assessed Comments Unknown Sex and Gender Information Value Date Recorded Sex Assigned at Not on file Legal Sex Female 4:47 AM ONCOLOGY SOCIAL WORKER Gender Identity Not on file Sexual Orientation Not on file documented as of this encounter Plan of Treatment Upcoming Encounters Date Type Department Care Team (Late Contact Info) Description 03/06/2025 4:40 PM ONCOLOGY SOCIAL WORKER Office Visit [facility] Primary Care [address] [place] [address] Carmelo Dueñas [place] [address] [facility] [address] [place] [address] documented as of this encounter Visit Diagnoses Not on filedocumented in this encounter Care Teams Study Specialist Relationship Specialty Start Date End Date Carmelo Dueñ[place] [address] [address] PCP - General 03/06/02 documented as of this encounter
--- OUTSIDE RECORDS SUMMARY | 2025-01-29 18:30 | XMS_ITS | Encounter Summary ---
Author Organization [facility] Address [address] [place] [address] Care Team Providers Care Recovery Assistant Name Role Phone Carmelo Dueñas MD Primary Care Provider +1- [phone] Encounter Details Date Type Department Care Team (Late Contact Info) Description 01/20/2007 Outpatient Historical [facility] Internal Medicine [address] [address] [place]elo [place]ñas [place] [address] [facility] [address] [place] [address] Social History Tobacco Use Types Packs/Day Years Used Date Smoking Tobacco: Never Assessed Comments Unknown Sex and Gender Information Value Date Recorded Sex Assigned at Not on file Legal Sex Female 4:47 AM PAD EXTRACTOR TENDER Gender Identity Not on file Sexual Orientation Not on file documented as of this encounter Plan of Treatment Upcoming Encounters Date Type Department Care Team (Late Contact Info) Description 03/06/2025 4:40 PM PAD EXTRACTOR TENDER Office Visit [facility] Primary Care [address] [place] [address] [place]elo [place]ñas [place] [address] [facility] [address] [place] [address] documented as of this encounter Visit Diagnoses Not on filedocumented in this encounter Care Teams Recovery Assistant Relationship Specialty Start Date End Date Carmelo Dueñ[place] [address] [address] PCP - General 03/06/02 documented as of this encounter
--- OUTSIDE RECORDS SUMMARY | 2025-01-29 18:30 | XMS_ITS | Encounter Summary ---
Author Organization [facility] Address [address] [place] [address] Care Team Providers Care Reshipping Clerk Name Role Phone Carmelo Dueñas MD Primary Care Provider +1- [phone] Encounter Details Date Type Department Care Team (Late st Contact Info) Description 04/23/2005 Orders Only [facility] Internal Medicine [address] [address] [place]elo [place]ñas [place] [address] [address] Social History Tobacco Use Types Packs/Day Years Used Date Smoking Tobacco: Never Assessed Comments Unknown Sex and Gender Information Value Date Recorded Sex Assigned at Not on file Legal Sex Female 4:47 AM MANAGER ENTRY Gender Identity Not on file Sexual Orientation Not on file documented as of this encounter Progress Notes * Carmelo Dueñas MD - 11/24/2007 5:32 PM CDT WEIGHT: 126lbs BLOOD PRESSURE: 110/60 Right Arm Sitting NURSE NAME: Tia Corea R CHIEF COMPLAINT Patient here for ER follow up.she was admitted for typical chest pain, cardiaccath was negative, she thinks this was just stress HISTORY: HISTORY: 272.4-HYPERLIPIDEMIA The patient is tolerating the medications, no complications noted. The patient`s most recent labs reviewed.recent labs were normal per patient 401.1-HYPERTENSION ESSENTIAL BENIGN The patient denies chest pain, shortness of breath, dyspnea on exertion, pedal edema, or headache. The patient is tolerating the medication. The blood pressure readings taken outside the office since the last visit have been in the target range. CURRENT MEDICATION LIST: DENAVIR EXTERNAL CREAME 1 %, APPLY Q 2 HOURS X 4 DAYS PREMARIN ORAL TABLET 0.625 MG, 1 Every Day IMITREX ORAL TABLET 50 MG, 1 TAB ORAL EVERY DAY as needed AND THEN may repeat times 1 after 2 hours EPIPEN INTRAMUSCULAR DEVICE 1:1000, TAKE DIRECTED ALBUTEROL INHALATION AEROSOL SOLUTION 90 MCG/ACT, 2 PUFFS FOUR TIMES ORAL NEEDED ALPRAZOLAM ORAL TABLET 0.25 MG, 1 Two Times A Day, As Needed NAPROXEN ORAL TABLET 500 MG, 1 Two Times A Day, As Needed LISINOPRIL ORAL TABLET 40 MG, 1 Every Day TRIAMTERENE-HCTZ ORAL TABLET 37.5-25 MG, 1 Every Morning LOVASTATIN ORAL TABLET 40 MG, 1 Every Day PROPOXACET-N ORAL TABLET 100-650 MG, 1 Four Times A Day, As Needed CURRENT ALLERGY LIST: BEE STING CODEINE DERIVATIVES IODINE SULFA DRUGS ROS: GENERAL: Normal activity and energy level, no change in appetite. No major weight gain or loss. No malaise, chills, fever, diaphoresis.. ENT: No hearing loss, epistaxis, hoarseness or dysphagia. No sinus congestion.. ENDOCRINE: No heat or cold intolerance, no excessive thirst.. CARDIAC: No chest pain, palpitations, orthopnea, dyspnea on exertion, or paroxysmal nocturnal dyspnea.. RESPIRATORY: No dyspnea, cough, hemoptysis or wheezing.. : No frequency, urgency, hematuria or dysuria.. GI: No abdominal pain, nausea, vomiting, diarrhea, constipation, melena, or hematochezia.. PHYSICAL EXAMINATION: CONSTITUTIONAL: GENERAL APPEARANCE: Healthy appearing [...] hepatosplenomegaly, tenderness or nodularity. Kidneys not palpable. SKIN: SKIN: Warm, dry, no diaphoresis, no significant lesions, irritation, rashes or ulcers. No induration, obvious subcutaneous nodules or tightening. ASSESSMENT/PLAN: 272.4-HYPERLIPIDEMIA ASSESSMENT: Will not change medication, continue to monitor for complications. A low cholesterol diet was encouraged. Weight loss was encouraged. Regular aerobic exercise was encouraged. The patient's thyroid status is being followed. 401.1-HYPERTENSION ESSENTIAL BENIGN ASSESSMENT: The blood pressure has improved. Will not change medication, continue to monitor for complications. 715.09-OSTEOARTHROSIS AND ALLIED DISORDERS ASSESSMENT: The patient's osteoarthritis continues to remain stable. 733.90-OSTEOPENIA ASSESSMENT: will recheck BMD LAB ORDERS: Order number: [id number] Test Ordered: BONE DENSITY V76.10-SCREENING FOR CA OF BREAST LAB ORDERS: Order number: [id number] Test Ordered: MAMMOGRAM 2 VIEW 788.31-SYMPTOMS INVOLVING URINARY SYSTEM will try some detrol and see how she does SPECIALTY REFERRAL: GASTROENTEROLOGY Dr. Travis Lino ph: [phone] fax: [phone].[facility] HEALTH MAINTENANCE: DISCUSSED SMOKING: ExS. INJURY PREVENTION DISCUSSED: 04/20. DIET AND EXERCISE DISCUSSED: 04/20. ADVANCED DIRECTIVES DISCUSSED: 04/20. PREVENTIVE COUNSELING The patient was counseled regarding [...] regular PAP smears, tobacco use, adult immunizations. REQUESTING OLD RECORDS: I am requesting old records. cardiac cath and stress test recently done at [facility], and chol profile RETURN VISIT : Patient instructed to return in 3 months. Electronically Signed by: Carmelo Dueñas MD on April documented in this encounter Plan of Treatment Upcoming Encounters Date Type Department Care Team (Late st Contact Info) Description 03/06/2025 4:40 PM MANAGER ENTRY Office Visit [facility] [address] [place] [address] Carmelo Dueñas MD [address] [place] [address] documented as of this encounter Visit Diagnoses Not on filedocumented in this encounter Care Teams Reshipping Clerk Relationship Specialty Start Date End Date Carmelo Dueñas MD [address] [place] [address] PCP - General 03/06/02 documented as of this encounter
--- OUTSIDE RECORDS SUMMARY | 2025-01-29 18:30 | XMS_ITS | Encounter Summary ---
Author Organization [facility] Address [address] [place] [address] Care Team Providers Care Die Repairer Forging Name Role Phone Carmelo Dueñas MD Primary Care Provider +1- [phone] Reason for Visit * Reason Comments Medication Assistance Encounter Details Date Type Department Care Team (Late st Contact Info) Description 06/28/2023 Telephone [facility] Primary Care [address] [place] [address] Carmelo Dueñas MD [address] [place] [address] Medication Assistance Social History Tobacco Use Types Packs/Day Years Used Date Smoking Tobacco: Former Cigarettes 20 0 10/17/1962 - 10/17/1982 Smokeless Tobacco: Never Alcohol Use Standard Drinks/Week Comments Yes 1 (1 standard drink = 0.6 oz pur e alcohol) occasional Feeling Safe Answer Date Recorded Within the [...] than three times a week 01/23/2020 Attends [employer] Not on file 01/22 Active Member [...] on file Legal Sex Female 4:47 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 Let me know if symptoms persist. * Telephone Encounter - Nancy Sun LPN - 06/29/2023 9:27 AM CDT Recent Visits Date Type Provider Dept 04/12/23 Office Visit Carmelo Dueñas MD [facility] 09/16/22 Office Visit Lon Carmichael PA [facility] 04/16/22 Office Visit Carmelo Dueñas MD [facility] 02/23/22 Video Visit Staci Del Valle ANP [facility] Showing recent visits within past 540 days with a meds authorizing provider and meeting all other requirements Future Appointments Date Type Provider Dept 09/20/23 Appointment Carmelo Dueñas MD [facility] Showing future appointments within next 150 days with a meds authorizing provider and meeting all other requirements * Telephone Encounter - Lindsay Ly - 06/28/2023 9:08 AM CDT Copied from [facility] #[id number]. Topic: Medication Request >> June 28, 2023 9:07 AM Lindsay Perez wrote: Caller is requesting: Medication - New Request (Not Currently Taking) Medication (Ask patient/caregiver to spell if possible): Sinus med [id number] [place] [address] [address] [facility] [place] [address] [facility] [place] [address] Fax: [phone] Patient/Caregiver Callback Number: [phone] Call Notes: Requesting a prescripton for a sinus infection. Head is clogged up and Sore throat since Wednesday, June 24. Please advise. documented in this encounter Plan of Treatment Upcoming Encounters Date Type Department Care Team ([facility] Info) Description 03/06/2025 4:40 PM COAL TOWER OPERATOR Office Visit [facility] [address] [place] [address] Carmelo Dueñas [place] [address] [facility] [address] [place] [address] documented as of this encounter Visit Diagnoses Not on filedocumented in this encounter Care Teams Die Repairer Forging Relationship Specialty Start Date End Date Carmelo Dueñ[place] [address] [facility] [address] [place] [address] PCP - General 03/06/02 documented as of this encounter
--- OUTSIDE RECORDS SUMMARY | 2025-01-29 18:30 | XMS_ITS | Encounter Summary ---
Author Organization [facility] Address [address] [place] [address] Care Team Providers Care Osd Clerk Name Role Phone Carmelo Dueñas MD Primary Care Provider +1- [phone] Encounter Details Date Type Department Care Team (Latest Contact Info) Description 04/17/2003 Outpatient Historical [facility] Carmelo Dueñas MD [address] [place] [address] SCREENING MAMM-MAILG NEOPL-OTHER (Primary Dx) Social History Tobacco Use Types Packs/Day Years Used Date Smoking Tobacco: Never Assessed Comments Unknown Sex and Gender Information Value Date Recorded Sex Assigned at Not on file Legal Sex Female 4:47 AM CULTURE ROOM WORKER Gender Identity Not on file Sexual Orientation Not on file documented as of this encounter Plan of Treatment Upcoming Encounters Date Type Department Care Team (Late st Contact Info) Description 03/06/2025 4:40 PM CULTURE ROOM WORKER Office Visit [facility] Primary Care [facility] [address] [facility] [address] [place] [address] Carmelo Dueñas MD [address] [place] [address] [address] [place] [address] documented as of this encounter Visit Diagnoses Diagnosis Other screening mammogram- Primary documented in this encounter Care Teams Osd Clerk Relationship Specialty Start Date End Date Carmelo Dueñas MD [address] [place] [address] [address] [place] [address] PCP - General 03/06/02 documented as of this encounter
--- OUTSIDE RECORDS SUMMARY | 2025-01-29 18:30 | XMS_ITS | Encounter Summary ---
Author Organization [facility] Address [address] [place] [address] Care Team Providers Care Deputy Probation Officer Name Role Phone Carmelo Dueñas MD Primary Care Provider +1- [phone] Encounter Details Date Type Department Care Team (Late Contact Info) Description 09/24/2003 Outpatient Historical [facility] Internal Medicine [address] [address] [place]elo [place]ñas [place] [address] [address] Social History Tobacco Use Types Packs/Day Years Used Date Smoking Tobacco: Never Assessed Comments Unknown Sex and Gender Information Value Date Recorded Sex Assigned at Not on file Legal Sex Female 4:47 AM FILM PROCESSOR Gender Identity Not on file Sexual Orientation Not on file documented as of this encounter Last Filed Vital Signs Vital Sign Reading Time Taken Comments Blood Pressure 110/70 09/24/2003 3:15 PM CDT Pulse - - Temperature - - Respiratory Rate - - Oxygen Saturation - - Inhaled Oxygen Concentration - - Weight 57.2 kg (126 lb) 09/24/2003 3:15 PM CDT Height - - Body Mass Index - - documented in this encounter Plan of Treatment Upcoming Encounters Date Type Department Care Team (Late Contact Info) Description 03/06/2025 4:40 PM FILM PROCESSOR Office Visit [facility] Primary Care [address] [place] [address] Carmelo Dueñas [place] [address] [place] [address] documented as of this encounter Visit Diagnoses Not on filedocumented in this encounter Care Teams Deputy Probation Officer Relationship Specialty Start Date End Date Carmelo Dueñas [place] [address] [place] [address] PCP - General 03/06/02 documented as of this encounter
--- OUTSIDE RECORDS SUMMARY | 2025-01-29 18:30 | XMS_ITS | Encounter Summary ---
Author Organization [facility] Address 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 (Primary Dx) Social History Tobacco Use Types Packs/Day Years Used Date Smoking Tobacco: Never Assessed Comments Unknown Sex and Gender Information Value Date Recorded Sex Assigned at Not on file Legal Sex Female 4:47 AM HRBP Gender Identity Not on file Sexual Orientation Not on file documented as of this encounter Plan of Treatment Upcoming Encounters Date Type Department Care Team (Late Contact Info) Description 03/06/2025 4:40 PM HRBP Office Visit [facility] Primary Care [address] [place] [address] Carmelo Dueñas [place] [id number] [place] [address] documented as of this encounter Visit Diagnoses Diagnosis Migraine, unspecified, without mention of intractable migraine without mention of status migrainosus- Primary documented in this encounter Care Teams Patient Attendant Relationship Specialty Start Date End Date Carmelo Dueñ[place] [address] [address] PCP - General 03/06/02 documented as of this encounter
--- OUTSIDE RECORDS SUMMARY | 2025-01-29 18:30 | XMS_ITS | Encounter Summary ---
Author Organization [facility] Address [address] [place] [address] Care Team Providers Care Slot Key Person Name Role Phone Carmelo Dueñas MD Primary Care Provider +1- [phone] Encounter Details Date Type Department Care Team (Late Contact Info) Description 04/21/2007 Outpatient Historical [facility] Internal Medicine [address] [address] Carmelo Dueñas [place] [address] [facility] [address] [place] [address] Social History Tobacco Use Types Packs/Day Years Used Date Smoking Tobacco: Never Assessed Comments Unknown Sex and Gender Information Value Date Recorded Sex Assigned at Not on file Legal Sex Female 4:47 AM VENEER TAPER Gender Identity Not on file Sexual Orientation Not on file documented as of this encounter Plan of Treatment Upcoming Encounters Date Type Department Care Team (Late Contact Info) Description 03/06/2025 4:40 PM VENEER TAPER Office Visit [facility] Primary Care [address] [place] [address] Carmelo Dueñas [place] [address] [facility] [address] [place] [address] documented as of this encounter Visit Diagnoses Not on filedocumented in this encounter Care Teams Slot Key Person Relationship Specialty Start Date End Date Carmelo Dueñ[place] [address] [address] PCP - General 03/06/02 documented as of this encounter
--- OUTSIDE RECORDS SUMMARY | 2025-01-29 18:30 | XMS_ITS | Encounter Summary ---
Author Organization [facility] Address [address] [place] [address] Care Team Providers Care Hosiery Bagger Name Role Phone Carmelo Dueñas MD Primary Care Provider +1- [phone] Encounter Details Date Type Department Care Team (Late Contact Info) Description 11/02/2003 Outpatient Historical [facility] Internal Medicine [address] [address] Carmelo Dueñas [place] [address] [address] Social History Tobacco Use Types Packs/Day Years Used Date Smoking Tobacco: Never Assessed Comments Unknown Sex and Gender Information Value Date Recorded Sex Assigned at Not on file Legal Sex Female 4:47 AM CODING ASSISTANT Gender Identity Not on file Sexual Orientation Not on file documented as of this encounter Last Filed Vital Signs Vital Sign Reading Time Taken Comments Blood Pressure 112/60 11/02/2003 11:30 AM CDT Pulse - - Temperature - - Respiratory Rate - - Oxygen Saturation - - Inhaled Oxygen Concentration - - Weight 57.2 kg (126 lb) 11/02/2003 11:30 AM CDT Height - - Body Mass Index - - documented in this encounter Plan of Treatment Upcoming Encounters Date Type Department Care Team (Late Contact Info) Description 03/06/2025 4:40 PM CODING ASSISTANT Office Visit [facility] Primary Care [address] [place] [address] Carmelo Dueñas [place] [address] [place] [address] documented as of this encounter Visit Diagnoses Not on filedocumented in this encounter Care Teams Hosiery Bagger Relationship Specialty Start Date End Date Carmelo Dueñas [place] [id number] [place] [address] PCP - General 03/06/02 documented as of this encounter
--- OUTSIDE RECORDS SUMMARY | 2025-01-29 18:30 | XMS_ITS | Encounter Summary ---
Author Organization [facility] Address [address] [place] [address] Care Team Providers Care Dental Resident Name Role Phone Carmelo Dueñas MD Primary Care Provider +1- [phone] Encounter Details Date Type Department Care Team (Late Contact Info) Description 04/23/2005 Outpatient Historical [facility] Internal Medicine [address] [address] Carmelo Dueñas MD [address] [place] [address] Social History Tobacco Use Types Packs/Day Years Used Date Smoking Tobacco: Never Assessed Comments Unknown Sex and Gender Information Value Date Recorded Sex Assigned at Not on file Legal Sex Female 4:47 AM RAP ARTIST Gender Identity Not on file Sexual Orientation Not on file documented as of this encounter Last Filed Vital Signs Vital Sign Reading Time Taken Comments Blood Pressure 110/60 04/23/2005 9:45 AM RAP ARTIST Pulse - - Temperature - - Respiratory Rate - - Oxygen Saturation - - Inhaled Oxygen Concentration - - Weight 57.2 kg (126 lb) 04/23/2005 9:45 AM RAP ARTIST Height - - Body Mass Index - - documented in this encounter Plan of Treatment Upcoming Encounters Date Type Department Care Team (Late st Contact Info) Description 03/06/2025 4:40 PM RAP ARTIST Office Visit [facility] Primary Care [address] [place] [address] Carmelo Dueñas [place] [address] [address] documented as of this encounter Visit Diagnoses Not on filedocumented in this encounter Care Teams Dental Resident Relationship Specialty Start Date End Date Carmelo Dueñas [place] [address] [place] [address] PCP - General 03/06/02 documented as of this encounter
--- OUTSIDE RECORDS SUMMARY | 2025-01-29 18:30 | XMS_ITS | Encounter Summary ---
Author Organization [facility] Address [address] [place] [address] Care Team Providers Care Manager Mass Name Role Phone Carmelo Dueñas MD Primary Care Provider +- [phone] Encounter Details Date Type Department Care Team (Latest Contact Info) Description 10/21/2007 Outpatient Historical [facility] IMG[facility] Carmelo Dueñas [place] [address] [address] Other Screening Mammogram Social History Tobacco Use Types Packs/Day Years Used Date Smoking Tobacco: Former Cigarettes 20 0 10/17/1962 - 10/17/1982 Alcohol Use Standard Drinks/Week Comments Yes 0 (1 standard drink = 0.6 oz pur e alcohol) Comments No Sex and Gender Information Value Date Recorded Sex Assigned at Not on file Legal Sex Female 4:47 AM TILLER MAN Gender Identity Not on file Sexual Orientation Not on file documented as of this encounter Plan of Treatment Upcoming Encounters Date Type Department Care Team (Late st Contact Info) Description 03/06/2025 4:40 PM TILLER MAN Office Visit [facility] Primary Care [facility] [address] [facility] [address] [address] [place] [address] Carmelo [place]ñas [place] [address] [facility] [address] [place] [address] documented as of this encounter Procedures Procedure Name Priority Date/Time Associated Diagnosis Comments CBC WITH DIFFERENTIAL Routine 10/26/2007 10:00 PM CDT TSH Routine 10/26/2007 10:00 PM CDT LIPID PANEL Routine 10/26/2007 10:00 PM CDT COMPREHENSIVE METABOLIC PANEL Routine 10/26/2007 10:00 PM CDT MAMMO SCREEN BILAT W OR WO CAD Routine 10/21/2007 9:06 AM CDT documented in this encounter Results * TSH (10/26/2007 10:00 PM CDT) Pathologist [facility] [place] TSH 2.15 0.40 - 4.50 mIU/L [facility] Comment: Test Performed at: [facility] [place] [address] [place] [address] MONTY PENA MD Carmelo Dueñas MD CHEMISTRY ORDERABLES Final Result INTERFACE SYSTEM Refer to clinic/hospital department [facility] [address] [place] [address] * CBC WITH DIFFERENTIAL (10/26/2007 10:00 PM CDT) Pathologist [facility] WBC 4.6 3.8 - 10.8 Thousand/u L [facility] RBC 4.66 3.80 - 5.10 Million/uL [facility] HEMOGLOBIN 13.6 11.7 - 15.5 g/dL [facility] . [place] HEMATOCRIT 40.5 35.0 - 45.0 % [facility] [place] MCV 86.9 80.0 - 100.0 fL [facility] . [place] MCH 29.2 27.0 - 33.[address] [facility] [address] [place] MCHC 33.6 32.0 - 36.0 g/dL [facility] . [place] RDW 13.8 11.0 - 15.0 % [facility] . [place] PLATELETS 281 140 - 400 Thousand/u L [facility] . [place] NEUTROPHIL ABSOLUTE 2,631 1,500 - 7,800 cells/uL [facility] [place] LYMPHOCYTE ABSOLUTE 1,582 850 - 3,900 cells/uL [facility] MONOCYTE ABSOLUTE 308 200 - 950 cells/uL [facility] . [place] EOSINOPHIL ABSOLUTE 55 15 - 500 cells/uL [facility] . [place] BASOPHILS ABSOLUTE 23 0 - 200 cells/uL [facility] . [place] NEUTROPHIL 57.2 % [facility] . [place] LYMPHOCYTES 34.4 % [facility] . [place] MONOCYTE 6.7 % [facility] . [place] EOSINOPHILS 1.2 % [facility] . [place] BASOPHILS 0.5 % [facility] . [place] Comment: Test Performed at: [facility] [place] [address] [place] [address] MONTY PENA MD Carmelo Dueñas MD HEMATOLOGY ORDERABLES Johanne bourne Result INTERFACE SYSTEM Refer to clinic/hospital department [facility] [address] [place] [address] * COMPREHENSIVE METABOLIC PANEL (10/26/2007 10:00 PM CDT) GLUCOSE 94 65 - 99 mg/dL [facility] Comment:FASTING REFERENCE IN TER[place] BUN 22 7 - 25 mg/dL [facility] CREATININE 0.89 0.50 - 1.20 mg/dL [facility] GFR >60 > OR = 60 mL/min/1 .73m2 [facility] GFR, >60 > OR = 60 mL/min/1 .73m2 [facility] BUN/CREAT RATIO NOT APPLICABLE 6 - 22 (calc) [facility] Comment: BUN/CREATININE RATIO IS NOT REPORTED WHEN THE BUN AND CREATININE VALUES ARE WITHIN NORMAL LIMITS. SODIUM 140 135 - 146 mmol/L [facility] . [facility] POTASSIUM 4.4 3.5 - 5.3 mmol/L [facility] . [facility] CHLORIDE 103 98 - 110 mmol/L [facility] DIAGNOSTICS . [facility] CO2 22 21 - 33 mmol/L [facility] . [facility] CALCIUM 10.2 8.6 - 10.2 mg/dL [facility] . [facility] TOTAL PROTEIN 7.2 6.2 - 8.3 g/dL [facility] ALBUMIN 4.6 3.6 - 5.1 g/dL [facility] . [facility] GLOBULIN 2.6 2.2 - 3.9 g/dL (calc) [facility] ALBUMIN/GLOBULI N RATIO 1.8 1.0 - 2.1 (calc) [facility] BILIRUBIN TOTAL 0.5 0.2 - 1.2 mg/dL [facility] ALKALINE PHOSPHATASE 102 33 - 130 U/L [facility] AST 19 10 - 35 U/L [facility] . [facility] ALT 17 6 - 40 U/L [facility] Comment: Test Performed at: [facility] [place] [address] MONTY PENA MD Carmelo Dueñas MD CHEMISTRY ORDERABLES Final Result Performing Organization Address [facility] Phone Number INTERFACE SYSTEM Refer to clinic/hospital department [facility] [place] [address] * (ABNORMAL) LIPID PANEL (10/26/2007 10:00 PM CDT) TRIGLYCERIDE 142 <150 mg/dL [facility] Comment: Test Performed at: [facility] [place] [address] MONTY PENA MD CHOLESTEROL 215(H) 125 - 200 mg/dL [facility] HDL 84 > OR = 46 mg/dL [facility] LDL CALCULATED 103 <130 mg/dL (calc) [facility] Comment: DESIRABLE RANGE <100 MG/DL FOR PATIENTS WITH CHD OR DIABETES AND <70 MG/DL FOR DIABETIC PATIENTS WITH KNOWN HEART DISEASE. CHOL/HDL RATIO 2.6 < OR = 5.0 (calc) [facility] Carmelo Dueñas MD CHEMISTRY ORDERABLES Final Result Performing Organization Address [facility] de Phone Number INTERFACE SYSTEM Refer to clinic/[place] [address] * MAMMO DIGITAL SCREEN BILAT (10/21/2007 9:06 AM CDT) Anatomical Region Laterality Modality Breast Bilateral Other 10/21/2007 9:06 AM CDT Narrative 10/24/2007 12:01 PM CDT [address] [address] Admit Date: 10/21/2007 LOUISE GAYTAN Sex: F Admit Prov: CARMELO DUEÑAS Date: 1945 Primary Care Prov: CARMELO DUEÑAS CMRN: [id number] Room: [facility]: [id number] IMAGING SERVICES Ordering Prov: CARMELO DUEÑAS Accession Number: [id number] Interpretation DIGITAL SCREENING MAMMOGRAM WITH COMPUTER ASSISTED DIAGNOSIS FINDINGS The breasts were imaged with digital mammographic technique. The parenchyma is moderately dense. There is no mass, malignant calcification, lymphadenopathy or other sign of malignancy. The CAD system does not highlight any suspicious areas. CONCLUSION No mammographic evidence of malignancy. Assessment BIRADS: 1-Negative Recommendation: Normal interval follow-up Dictated by: CELESTINE COTTO Electronically signed by: CELESTINE COTTO 10/24/2007 12:01 Transcribed: 10/24/2007 12:01 [facility] Procedure Note Celestine Cotto MD - 10/24/[address] [address] Admit Date: 10/21/2007 LOUISE GAYTAN Sex: F Admit Prov: CARMELO DUEÑAS Date: 1945 Primary Care Prov: CARMELO DUEÑAS CMRN: [id number] [id number] [facility] Ordering Prov: CARMELO DUEÑAS Interpretation DIGITAL SCREENING MAMMOGRAM WITH COMPUTER ASSISTED DIAGNOSIS FINDINGS The breasts were imaged with digital mammographic technique. Theparenchyma is moderately dense. There is no mass, malignant calcification, lymphadenopathy or other sign of malignancy. The CAD system does not highlight any suspicious areas. CONCLUSION No mammographic evidence of malignancy. Assessment BIRADS: 1-Negative Recommendation: Normal interval follow-up Dictated by: CELESTINE COTTO Electronically signed by: CELESTINE COTTO 10/24/2007 12:01 Transcribed: 10/24/2007 12:01 [facility] us Carmelo Dueñas MD MAMMO ORDERABLES Final Res ult documented in this encounter Visit Diagnoses Diagnosis Other screening mammogram documented in this encounter Care Teams Manager Mass Relationship Specialty Start Date End Date Carmelo Dueñ[place] [address] [address] PCP - General 03/06/02 documented as of this encounter
--- OUTSIDE RECORDS SUMMARY | 2025-01-29 18:31 | XMS_ITS | Encounter Summary ---
Author Organization [facility] Address [address] [place] [address] Care Team Providers Care Work Environment Safety Inspector Name Role Phone Carmelo Dueñas MD Primary Care Provider +1- [phone] Encounter Details Date Type Department Care Team (Late Contact Info) Description 04/21/2007 Outpatient Historical [facility] Internal Medicine [address] [address] Carmelo Dueñ[place] [address] [facility] [address] [place] [address] Social History Tobacco Use Types Packs/Day Years Used Date Smoking Tobacco: Never Assessed Comments Unknown Sex and Gender Information Value Date Recorded Sex Assigned at Not on file Legal Sex Female 4:47 AM SAUSAGE COOKER Gender Identity Not on file Sexual Orientation Not on file documented as of this encounter Plan of Treatment Upcoming Encounters Date Type Department Care Team (Late Contact Info) Description 03/06/2025 4:40 PM SAUSAGE COOKER Office Visit [facility] Primary Care [address] [place] [address] Carmelo Dueñas [place] [address] [facility] [address] [place] [address] documented as of this encounter Visit Diagnoses Not on filedocumented in this encounter Care Teams Work Environment Safety Inspector Relationship Specialty Start Date End Date Carmelo Dueñ[place] [address] [address] PCP - General 03/06/02 documented as of this encounter
--- OUTSIDE RECORDS SUMMARY | 2025-01-29 18:31 | XMS_ITS | Encounter Summary ---
Author Organization [facility] Address [address] [place] [address] Care Team Providers Care Building Maintenance Custodian Name Role Phone Carmelo Dueñas MD Primary Care Provider +1- [phone] Encounter Details Date Type Department Care Team (Late st Contact Info) Description 04/21/2007 Orders Only [facility] Internal Medicine [address] [address] Carmelo Dueñas MD [address] [place] [address] Social History Tobacco Use Types Packs/Day Years Used Date Smoking Tobacco: Never Assessed Comments Unknown Sex and Gender Information Value Date Recorded Sex Assigned at Not on file Legal Sex Female 4:47 AM TRAILER MECHANIC Gender Identity Not on file Sexual Orientation Not on file documented as of this encounter Progress Notes * Carmelo Dueñas MD - 07/21/2007 5:48 PM CDT CENTRAL TEST SCHEDULING DATE: APR 21, 2007 Note created by: Katie Cabral L 11:47 a Patient Name : LOUISE GAYTAN Address: [facility] [place] [address] D.O.B: 1945 SSN: [id number] Parent/Guardian if applicable: Patient Insurance: [employer]LESS[employer]I ID#: [id number] Group#: ORDER(S) #: [id number] BEST TO CALL HOME. BEST TIME TO CALL: PLEASE SCHEDULE THE APPOINTMENT AT THE FOLLOWING LOCATION: please advise her of locations near her home. TEST PRIORITY: 2 - 7 DAYS. SPECIAL SCHEDULING INSTRUCTIONS: needs prep ORDERING PHYSICIAN: CARMELO DUEÑAS MD OFFICE JEWELRY SALES REPRESENTATIVE & PHONE: Katie Cabral L ORDER PRINTED BY: APR 23, 2007 Dorie Magaña T 08:18 a FOR SCHEDULING USE ONLY: FIRST ATTEMPT Date:APR 23, 2007 Dorie Magaña T 10:47 a Left message on Recorder. SECOND ATTEMPT: Date:APR 26, 2007 Spring Dong K 12:02 p Spoke with Patient. PT CALLED TO SCHED APPT. APR 26, 2007 Spring Dong K 12:02 p TEST SCHEDULE [facility]. APPOINTMENT DATE : 05/06/2007 ( 8:45 AM) The appointment was scheduled by Spring Dong K at [phone] APR 26, 2007 Spring Dong K 12:03 p Pre-authorization number: ANTHEM NN FINAL ACTION Follow up completed. * Carmelo Dueñas MD - 07/21/2007 5:48 PM CDT WEIGHT: 125lbs BLOOD PRESSURE: 138/82 Left Arm Sitting NURSE NAME: Tim OrtaAuyr TOBACCO USE Patient does not currently use tobacco. CHIEF COMPLAINT Patient here for follow up Gastroesophageal Reflex Disease (GERD), hyperlipidemia, hypertension, hypothyroidism. HISTORY: HISTORY: 244.9-HYPOTHYROIDISM The hypothyroidism is stable. The patient denies any symptoms of hypothyroidism such as dry skin, hoarseness, loss of energy, cold intolerance, or weight gain. No complications noted from the medication presently being used. 272.4-HYPERLIPIDEMIA The patient is tolerating the medications. 300.00-ANXIETY The condition has improved. The patient relates good tolerance to the medication that is taken on an as needed basis. 401.1-HYPERTENSION ESSENTIAL BENIGN The patient denies chest pain, shortness of breath, dyspnea on exertion, pedal edema, or headache. The patient is tolerating the medication. The blood pressure readings taken outside the office since the last visit have been in the target range. 530.81-GASTROESOPHAGEAL REFLUX (GERD) The patient's dyspeptic symptoms have improved.is having lessdysphagia but still having central chest pain and dyspepsia at times, will need barium swallow to check for motility disorder 715.09-OSTEOARTHROSIS AND ALLIED DISORDERS The arthritis is stable. The patient relates good tolerance to the medication that is taken on an as needed basis. 788.41-URINARY FREQUENCY The urinary frequency has improved. The patient relates good tolerance to the medication that is taken on an as needed basis. ROS: GENERAL: Normal activity and energy level, [...] No frequency, urgency, hematuria or dysuria.. GI: HAS FREQUENT HEARTBURN, HAS FREQUENT INDIGESTION, no loss of appetite, no weight loss, HAS BEENREGURGITATING, HAS PAIN ON SWALLOWING, no trouble swallowing. PHYSICAL EXAMINATION: CONSTITUTIONAL: GENERAL APPEARANCE: Healthy appearing [...] tenderness or nodularity. Kidneys not palpable. ASSESSMENT/PLAN: 244.9-HYPOTHYROIDISM ASSESSMENT: The patient appears stable. Will follow for signs of hypothyroidism. Will not change medication, continue to monitor for complications. 272.4-HYPERLIPIDEMIA ASSESSMENT: Will not change medication, continue to monitor for complications. A low cholesterol diet was encouraged. Weight loss was encouraged. Regular aerobic exercise was encouraged. The patient's thyroid status is being followed. LAB ORDERS: fasting 3 months Order number: [id number] Test Ordered: CBC W/ DIFFERENTIAL 3150 Order number: [id number] Test Ordered: COMPREHENSIVE METABOLIC PANEL & GFR 1112 Order number: [id number] Test Ordered: LIPID PANEL 1078 Order number: [id number] Test Ordered: TSH 1720 401.1-HYPERTENSION ESSENTIAL BENIGN ASSESSMENT: The blood pressure remains satisfactory. Will not change medication, continue to monitor for complications. The patient was encouraged to follow a low salt diet. Regular aerobic exercise was encouraged. Weight loss was discussed and encouraged. 530.81-GASTROESOPHAGEAL REFLUX (GERD) ASSESSMENT: The patient's reflux esophagitis has improved.but persistent sx despite protonix daily LAB ORDERS: Order number: [id number] Test Ordered: BARIUM SWALLOW 715.09-OSTEOARTHROSIS AND ALLIED DISORDERS ASSESSMENT: The patient's osteoarthritis has improved. Continue to use medication on an as needed basis. STATUS: Improved. 788.41-URINARY FREQUENCY ASSESSMENT: The patient's urinary frequency has improved. PREVENTIVE COUNSELING The patient was counseled regarding [...] Electronically Signed by: Carmelo Dueñas MD on , April 21, 2007 documented in this encounter Plan of Treatment Upcoming Encounters Date Type Department Care Team (Late st Contact Info) Description 03/06/2025 4:40 PM TRAILER MECHANIC Office Visit [facility] Primary Care [address] [place] [address] Carmelo Dueñas MD [address] [place] [address] documented as of this encounter Visit Diagnoses Not on filedocumented in this encounter Care Teams Building Maintenance Custodian Relationship Specialty Start Date End Date Carmelo Dueñas [place] [id number] [place] [address] [address] [place] [address] PCP - General 03/06/02 documented as of this encounter
--- OUTSIDE RECORDS SUMMARY | 2025-01-29 18:31 | XMS_ITS | Encounter Summary ---
Author Organization [facility] Address [address] [place] [address] Care Team Providers Care Graphite Disk Assembler Name Role Phone Carmelo Dueñas MD Primary Care Provider +1- [phone] Reason for Visit * Reason Comments Medication Assistance Encounter Details Date Type Department Care Team (Late st Contact Info) Description 10/23/2024 Telephone [facility] Internal Medicine [address] [address] Carmelo Dueñas MD [address] [place] [address] Medication Assistance Social History Tobacco Use [...] than three times a week 01/23/2020 Attends Synagogue Services Not on file 01/22 Active Member [...] on file Legal Sex Female 4:47 AM EVENTS MANAGER Gender Identity Not on file Sexual Orientation Not on file 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 Last office visit and next office visit are up-to-date. Recent Visits Date Type Provider Dept 09/11/24 Office Visit Carmelo Dueñas MD [facility] 04/03/24 Office Visit Carmelo Dueñas MD [facility] 09/20/23 Office Visit Carmelo Dueñas MD [facility] Showing recent visits within past 540 days with a meds authorizing provider and meeting all other requirements Future Appointments Date Type Provider Dept 03/06/25 Appointment Carmelo Dueñas MD [facility] Showing future appointments within next 365 days with a meds authorizing provider and meeting all other requirements * Telephone Encounter - Brennan Banks - 10/23/2024 9:24 AM CDT Copied from [facility] #[id number]. Topic: Medication Request >> Oct 23, 2024 9:20 AM Brennan Vasquez wrote: Caller Name: Noemi Gaytan Callback Number: Telephone Information: Medication (Ask patient/caregiver to spell if possible): UTI meds Note: All medication prescriptions can be requested using one CRM Caller is requesting: Medication Question from Patient (not involving new prescription or refill) Preferred Pharmacy: [id number] [place], [place] - [facility] [address] [facility] [place] [address]) & [facility] [address] [facility] [address] Call Notes: Caller has question about having a UTI, need medication sent to pharmacy Is there an encounter open? No documented in this encounter Plan of Treatment Upcoming Encounters Date Type Department Care Team ([facility] st Contact Info) Description 03/06/2025 4:40 PM EVENTS MANAGER Office Visit [address] [place] [address] Carmelo Dueñas [place] [id number] [place] [address] documented as of this encounter Visit Diagnoses Diagnosis Urinary frequency- Primary documented in this encounter Care Teams Graphite Disk Assembler Relationship Specialty Start Date End Date Carmelo Dueñas MD [address] [place] [address] PCP - General 03/06/02 documented as of this encounter
[2025-01-29 18:44] LABS: Hematocrit 44.8 % (37.0-47.0); Hemoglobin 14.6 g/dL (12.0-15.0); Immature Granulocyte Percent A 0.2 % (0-0.5); Lymphocytes Absolute Auto 2.17 K/mm3 (0.9-3.2); Mean Corpuscular HGB Conc 32.6 g/dl (32-36); Mean Corpuscular Hemoglobin 28.3 pg (26-34); Mean Corpuscular Volume 87.0 fl (80-100); Nucleated Red Blood Cells Absolute Auto 0.000 K/mm3 (0.0-0.012); Nucleated Red Blood Cells Perc 0.0 % (0.0-0.2); Platelet Count Result 364 k/mm3 (150-375); Red Blood Count 5.15 M/mm3 (4.2-5.4); White Blood Count 6.7 K/mm3 (4.5-10.0)
[2025-01-29 18:54] LABS: Alanine Aminotransferase 19 U/L (6-35); Albumin Level 4.7 g/dL (3.5-5.1); Alkaline Phosphatase 118 U/L (38-126); Anion Gap 10 mmol/L (4-12); Aspartate Amino Transferase 24 U/L (14-36); Bilirubin,Total 0.6 mg/dL (0.2-1.3); Blood Urea Nitrogen 15 mg/dL (7-17); Calcium 10.1 mg/dL (8.4-10.2); Carbon Dioxide 24 mmol/L (22-30); Chloride 101 mmol/L (98-107); Estimated Glomerular Filt Rate > 60; Glucose 109 mg/dL (65-110); Lipase 157 U/L (23-300); Potassium 3.6 mmol/L (3.4-5.0); Sodium 135 mmol/L (137-145); Total Protein 8.3 g/dL (6.3-8.2)
[2025-01-29] MEDS: KETOROLAC 15 MG/ML VIAL (*BKC) IV PUSH (19:00)
--- NOTE | 2025-01-29 19:03 | ED_ITS ---
HPI - Abdominal Pain General Chief Complaint: Abdominal Pain Stated Complaint: LOWER ABD PAIN, BACK PAIN Time Seen by Provider: 01/29/25 18:31 Source: patient and family Mode of arrival: ambulatory Limitations: no limitations History of Present Illness HPI narrative: This is a 79-year-old female with history of hypertension who presents to the ED for lower abdominal pain. Patient states for the past 3 days, she has been having lower abdominal cramping with some urinary urgency/frequency. Denies hematuria, dysuria. She states that this does feel similar to prior UTIs. She was seen in urgent care for this but the UA was clear so she was sent here for further evaluation. Patient denies fevers chills, nausea vomiting, chest pain, shortness of breath. Denies vaginal bleeding, discharge. Related Data Allergies Allergy/AdvReac Type Severity Reaction Status Date / Time bee venom protein (honey bee) Allergy Intermediate Difficulty Verified 01/29/25 18:09 Breathing iohexol (From contrast - CT, Allergy Intermediate Hives Verified 01/29/25 18:09 X-RAY) Sulfa (Sulfonamide Allergy Intermediate Other Verified 01/29/25 18:09 Antibiotics) prednisone AdvReac Intermediate Agitated Verified 01/29/25 18:09 Review of Systems 2 Review of Systems: Gen.: Denies fevers or chills Eyes: Denies eye pain or visual change ENT: Denies congestion Respiratory: Denies shortness of breath or cough CV: Denies chest pain or palpitations GI: As per HPI as per HPI Musculoskeletal: Denies back pain or muscle pain Neuro: Denies numbness, tingling, weakness or focal weakness Skin: Denies rash Except as documented, all other systems reviewed and negative Exam 2 Narrative: APPEARANCE: No acute distress, nontoxic, resting in bed EYES: EOMI HEENT: Normocephalic, atraumatic, OMM RESPIRATORY: No respiratory distress Clear to auscultation bilaterally with no rhonchi wheezing or rales. CARDIOVASCULAR: Regular rate and rhythm without murmurs rubs or gallops. ABDOMINAL: Soft, nontender, nondistended, no rebound or guarding MUSCULOSKELETAl: Moves all extremities. No clubbing, cyanosis or edema. NEURO: Awake and alert. Following commands, speech normal, no focal deficits SKIN:: Warm, dry. No rashes lesions or abrasions PSYCHIATRIC: Normal affect/mood, Course Vital Signs Vital signs: Vital Signs Temperature 98.2 F 01/29/25 18:05 Pulse Rate 97 01/29/25 18:05 Respiratory Rate 14 01/29/25 18:05 Blood Pressure 149/99 H 01/29/25 18:05 Pulse Oximetry 99 01/29/25 18:05 Oxygen Delivery Room Air 01/29/25 18:05 Temperature 98.2 F 01/29/25 18:05 Pulse Rate 74 01/29/25 20:11 Respiratory Rate 16 01/29/25 20:11 Blood Pressure 136/87 01/29/25 20:11 Pulse Oximetry 100 01/29/25 20:11 Oxygen Delivery Room Air 01/29/25 18:05 MDM MDM Narrative Medical decision making narrative: 79-year-old female Presenting for lower abdominal pain. On initial evaluation patient was in no acute distress afebrile, hemodynamic stable. Differentials include but are not limited to: Ovarian cyst, ovarian torsion, uterine fibroid, PID, UTI, urinary retention, ureterolithiasis, constipation, appendicitis, enterocolitis, colitis, cancer Notable exam findings: Mild suprapubic tenderness to palpation I personally reviewed the patient's lab result. Notable lab findings: CBC and CMP without significant abnormalities. UA consistent with a UTI. CT abdomen/pelvis showed no acute process Patient's symptoms most likely due to UTI. She was given a prescription for Keflex. Also incidentally noted left inguinal hernia so she was advised to go to General surgery for further elective management. Patient was agreeable to this plan. Given strict return precautions. Differential Diagnosis Differential Diagnosis: Ovarian cyst, ovarian torsion, uterine fibroid, PID, UTI, urinary retention, ureterolithiasis, constipation, appendicitis, enterocolitis, colitis, cancer Lab Data 01/29/25 18:37 01/29/25 18:37 Labs: Lab Results 01/29/25 Range/Units 18:37 WBC 6.7 (4.5-10.0) K/mm3 RBC 5.15 (4.2-5.4) M/mm3 Hgb 14.6 (12.0-15.0) g/dL Hct 44.8 (37.0-47.0) % MCV 87.0 (80-100) fl MCH 28.3 (26-34) pg MCHC 32.6 (32-36) g/dl RDW 13.4 (11.5-14.5) % Plt Count 364 (150-375) k/mm3 MPV 8.9 (7.4-10.4) fl Immature Gran % (Auto) 0.2 (0-0.5) % Neut % (Auto) 56.1 (45.5-73.1) % Lymph % (Auto) 32.6 (18.3-44.2) % Mellette % (Auto) 8.1 (2.6-8.5) % Eos % (Auto) 2.4 (0-4.4) % Baso % (Auto) 0.6 (0.2-1.2) % Lymph # (Auto) 2.17 (0.9-3.2) K/mm3 [place]lette # (Auto) 0.5 (0.1-0.6) K/mm3 Eos # (Auto) 0.2 (0-0.3) K/mm3 Baso # (Auto) 0.0 (0.0-0.1) K/mm3 Abs Immat Gran (auto) 0.01 (0.00-0.031) K/mm3 Absolute Neuts (auto) 3.7 (1.3-6.7) K/mm3 Absolute Nucleated RBC 0.000 (0.0-0.012) K/mm3 Nucleated RBC % 0.0 (0.0-0.2) % Sodium 135 L (137-145) mmol/L Potassium 3.6 (3.4-5.0) mmol/L Chloride 101 (98-107) mmol/L Carbon Dioxide 24 (22-30) mmol/L Anion Gap 10 (4-12) mmol/L BUN 15 (7-17) mg/dL Creatinine 0.78 (0.7-1.0) mg/dL Estim Creat Clear Calc Not Reportable Estimated GFR > 60 (59 - ) Glucose 109 (65-110) mg/dL Calcium 10.1 (8.4-10.2) mg/dL Total Bilirubin 0.6 (0.2-1.3) mg/dL AST 24 (14-36) U/L ALT 19 (6-35) U/L Alkaline Phosphatase 118 (38-126) U/L Total Protein 8.3 H (6.3-8.2) g/dL Albumin 4.7 (3.5-5.1) g/dL Lipase 157 (23-300) U/L Urine Color Dark yellow (Yellow) Urine Appearance Clear (Clear) Urine pH 7.0 (5.0-9.0) Ur Specific [place] 1.012 (1.001-1.035) Urine Protein Negative (Negative) mg/dL Urine Glucose (UA) Negative (Negative) mg/dL Urine Ketones Negative (Negative) mg/dL Ur Blood (Man) Negative (Negative) Urine Nitrate Positive H (Negative) Urine Bilirubin Negative (Negative) Urine Urobilinogen 1.0 (<2.0) mg/dL Add Ur Microanalysis Reviewed Leukocyte Esterase Rfl 1+ H (Negative) GERARD/UL Urine RBC 0-2 (0-2) /hpf Urine WBC 0-5 (0-3) /hpf Ur Squamous Epith Cells Occasional (Few) /hpf Urine Bacteria None seen /hpf Urine Casts 0-2 Imaging Data Radiologist's impression: ITS Impressions Abdomen/Pelvis CT 01/29/25 19:36 IMPRESSION: Left inguinal hernia containing sigmoid and descending colon with no evidence of bowel obstruction. All CT scans at this facility are performed using low dose modulation techniques as appropriate to perform exam including the following: automated exposure control; use of iterative reconstruction technique; adjustment of the mA and/or kV according to patient size (this includes techniques or standardized protocols for targeted exams where dose is matched to indication/reason for exam). Discharge Plan Discharge Clinical Impression: Cystitis Inguinal hernia Qualifiers: Obstruction and gangrene presence: without obstruction or gangrene Laterality: unilateral Recurrence: not specified as recurrent Qualified Code(s): K40.90 - Unilateral inguinal hernia, without obstruction or gangrene, not specified as recurrent Patient Disposition: Home Condition: Stable Instructions: Antibiotic Form, Urinary Tract Infection in Older Adults (ED) Additional Instructions: You were found to have a UTI. Your given a prescription for Keflex to take this as prescribed. You are also noted to have an inguinal hernia on the left, this can usually be managed outpatient by a surgeon. Your given a referral to Dr. Mejia, General surgery, follow-up with his office the next month or so for re- evaluation. Return to the ED for new worsening symptoms. Patient Language: Danish Prescriptions: New cephalexin 500 mg capsule 500 mg PO Q12H Qty: 10 0RF No Action benzonatate 100 mg capsule 100 mg PO TID PRN (Reason: cough) Qty: 20 0RF amoxicillin-pot clavulanate 875-125 mg tablet 1 tablet PO Q12H 7 Days Qty: 14 0RF Follow-up/Referrals: Muna Mejia MD [Physician, General Surgery] UNKNOWN,DOCTOR [Primary Care Provider]
[2025-01-29 19:25] LABS: Add Urine Microscopic? YES; Appearance Urine Clear (Clear); Glucose Urine UA Negative (Negative); Leukocyte Esterase Ur 1+ LEU/UL (Negative); Need Manual Microscopic Reviewed; Nitrate Urine Positive (Negative); Non Pathogenic Casts 0-2; Specific Grav Ur 1.012 (1.001-1.035)
--- OUTSIDE RECORDS SUMMARY | 2025-01-29 19:51 | XMS_ITS | Encounter Summary ---
Author Organization [facility] Address [address] [place] [address] Care Team Providers Care Desizing Machine Offbearer Name Role Phone Carmelo Dueñas MD Primary Care Provider +1- [phone] Encounter Details Date Type Department Care Team (Late Contact Info) Description 02/21/2002 Outpatient Historical [facility] Internal Medicine [address] [address] [place]elo [place] [address] [facility] [address] [place] [address] Social History Tobacco Use Types Packs/Day Years Used Date Smoking Tobacco: Never Assessed Comments Unknown Sex and Gender Information Value Date Recorded Sex Assigned at Not on file Legal Sex Female 4:47 AM RECEPTION INTERVIEWER Gender Identity Not on file Sexual Orientation Not on file documented as of this encounter Plan of Treatment Upcoming Encounters Date Type Department Care Team (Late Contact Info) Description 03/06/2025 4:40 PM RECEPTION INTERVIEWER Office Visit [facility] Primary Care [address] [place] [address] Carmelo Dueñas [place] [address] [facility] [address] [place] [address] documented as of this encounter Visit Diagnoses Not on filedocumented in this encounter Care Teams Desizing Machine Offbearer Relationship Specialty Start Date End Date Carmelo Dueñ[place] [id number] [address] PCP - General 03/06/02 documented as of this encounter
--- OUTSIDE RECORDS SUMMARY | 2025-01-29 19:51 | XMS_ITS | Encounter Summary ---
Author Organization [facility] Address [address] [place] [address] Care Team Providers Care Promotional Marketing Analyst Name Role Phone Carmelo Dueñas MD Primary Care Provider +1- [phone] Encounter Details Date Type Department Care Team (Late Contact Info) Description 07/03/2002 Outpatient Historical [facility] Internal Medicine [address] [address] [place]elo Dueñas [place] [address] [address] Social History Tobacco Use Types Packs/Day Years Used Date Smoking Tobacco: Never Assessed Comments Unknown Sex and Gender Information Value Date Recorded Sex Assigned at Not on file Legal Sex Female 4:47 AM SAMPLE SELECTOR Gender Identity Not on file Sexual Orientation [...] Contact Info) Description 03/06/2025 4:40 PM SAMPLE SELECTOR Office Visit [facility] Primary Care [address] [place] [address] Carmelo Dueñas [place] [id number] [place] [address] documented as of this encounter Visit Diagnoses Not on filedocumented in this encounter Care Teams Promotional Marketing Analyst Relationship Specialty Start Date End Date Carmelo Dueñas [place] [id number] [place] [address] PCP - General 03/06/02 documented as of this encounter
--- OUTSIDE RECORDS SUMMARY | 2025-01-29 19:51 | XMS_ITS | Encounter Summary ---
Author Organization [facility] Address [address] [place] [address] Care Team Providers Care Circulation Crew Leader Name Role Phone Carmelo Dueñas MD Primary Care Provider +- [phone] Encounter Details Date Type Department Care Team (Latest Contact Info) Description 03/06/2002 Outpatient Historical [facility] Carmelo Dueñas MD [address] [place] [address] SYMPTOMATIC FEMALE CLIMACTERIC STATE (Primary Dx) Social History Tobacco Use Types Packs/Day Years Used Date Smoking Tobacco: Never Assessed Comments Unknown Sex and Gender Information Value Date Recorded Sex Assigned at Not on file Legal Sex Female 4:47 AM CHICKEN FANCIER Gender Identity Not on file Sexual Orientation Not on file documented as of this encounter Plan of Treatment Upcoming Encounters Date Type Department Care Team (Late st Contact Info) Description 03/06/2025 4:40 PM CHICKEN FANCIER Office Visit [facility] Primary Care [facility] [address] [place] [address] [address] [place] [id number] Carmelo Dueñas [place] [address] [facility] [address] [place] [address] documented as of this encounter Visit Diagnoses Diagnosis Symptomatic menopausal or female climacteric states- Primary documented in this encounter Care Teams Circulation Crew Leader Relationship Specialty Start Date End Date Carmelo Dueñas MD [address] [place] [address] [address] [place] [address] PCP - General 03/06/02 documented as of this encounter
--- OUTSIDE RECORDS SUMMARY | 2025-01-29 19:51 | XMS_ITS | Encounter Summary ---
Author Organization [facility] [address] [place] [address] Care Team Providers Care Forepart Rasper Name Role Phone Pilar Arroyo MD Unavailable [phone] Carmelo Dueñas MD Primary Care Provider Reason for Visit * Reason Onset Date Comments Results 06/06/2022 Encounter Details Date Type Department Care Team (Late st Contact Info) Description 06/06/2022 Telephone [facility] [address] [facility], [address] [place] [address] Aimee Echols APRN-ESTATE MANAGER [address] [place] [address] Results Social History Tobacco Use Types Packs/Day Years Used Date Smoking Tobacco: Never Alcohol Use Standard Drinks/Week Comments No 0 (1 standard drink = 0.6 oz pur e alcohol) Comments No Sex and Gender Information Value Date Recorded Sex Assigned at Not on file Legal Sex Female 5:48 AM BATCH PLANT OPERATOR Gender Identity Not on file Sexual [...] Under Investigation 02/17/2023 02/17/2023 02/17/2023 10:43 AM BATCH PLANT OPERATOR COVID-19 Confirmed 02/17/2023 02/17/2023 4:35 AM BATCH PLANT OPERATOR documented as of this encounter Care Teams Forepart Rasper Relationship Specialty Start Date End Date Carmelo Dueñas MD PCP - General Internal Medicine 01/19/14 Pilar Arroyo MD Orthopedic Surgery 01/19/14 documented as of this encounter
--- OUTSIDE RECORDS SUMMARY | 2025-01-29 19:51 | XMS_ITS | Clinical Summary ---
Author Organization [facility] Address [address] [place] [address] Care Team Providers Care Funds Development Director Name Role Phone Carmelo Dueñas MD Primary Care Provider [phone]- [phone] Allergies Active Allergy Reactions Criticality Noted Date Comments Allergen Zbv-Rwczo-Lkhpg Bee Swelling Low 10/30/2003 Codeine Itching,Confusion,Di zziness [...] 25 Active fluticasone propionate (FLONASE) 50 mcg/spray [place], Suspension nasal inhalerIndication s:PND (post-nasal drip) Administer [...] Device Data STL ABSTRACTION Provider, Abstract 01/01/2025 [facility] Internal Medicine [facility] [phone] [address] Carmelo Dueñas MD Generalized anxiety disorder 12/11/[address] [place] [address] [place] [address] Carmelo Dueñas MD Essential hypertension, benign; Gastroesophageal reflux disease without esophagitis; Acquired hypothyroidism 12/11/[address] [place] [address] Staci Del Valle, ANP Upper respiratory tract infection, unspecified type 12/11/[address] [place] [address] Carmelo Dueñas MD PND (post-nasal drip) 11/13/[address] [facility] Internal Medicine [facility] [phone] [address] Carmelo Dueñas MD from Last 3 Months Immunizations Immunization Administration Dates Next Due (ADACEL/BOOSTRIX)(10 YR UP) TDAP VACCINE, 0.5ML, IM 01/14/2015 (PFIZER)(12 YR UP) COVID-19 VACCINE - EMERGENCY USE AUTHORIZATION, MRNA, [id number](PF) 30 MCG/0.3 ML IM SUSP 11/21/2020,05/08/2020,04/19/2020 (PNEUMOVAX [...] than three times a week 01/23/2020 Attends Muslim Services Not on file 01/22 Active Member [...] on file Legal Sex Female 4:47 AM ATG JAVA DEVELOPER Gender Identity Not on file Sexual [...] st Contact Info) Description 03/06/2025 4:40 PM ATG JAVA DEVELOPER Office Visit [facility] [address] [facility] [address] [place] [address] Carmelo Dueñas [place] [address] [address] Health Maintenance Due Date Last [...] VACCINE Completed 12/16/2021, 10/2021, 08/15/2010 Medicare Advantage ([place]) Preventative Visit/Annual Wellness Visit Completed 04/03/2024, 04/12/2023, [...] report found in: Imaging Section of the [facility] EMR. Definitions: Normal: T-score above [...] images of the lumbar spine and hip(s). Semantria DEXA scanner for bone mineral density determination [...] images of the lumbar spine and hip(s). Semantria DEXA scanner for bone mineral density determination [...] report found in: Imaging Section of the [facility] EMR. Definitions: Normal: T-score above [...] Most Recently Relevant to Health Maintenance Insurance [facility] [id number] Advance Directives For more information, please contact: [phone] * Full Code (Latest Code Status on File) Date Activated Date Inactivated Comments 05/29/2015 1:59 PM 05/29/2015 5:54 PM Care Teams Funds Development Director Relationship Specialty Start Date End Date Carmelo Dueñ[place] [id number] [address] PCP - General 03/06/02
--- OUTSIDE RECORDS SUMMARY | 2025-01-29 19:51 | XMS_ITS | Encounter Summary ---
Author Organization [facility] Address [address] [place] [address] Care Team Providers Care Equipment Operator Warehouse Name Role Phone Carmelo Dueñas MD Primary Care Provider +1- [phone] Encounter Details Date Type Department Care Team (Late Contact Info) Description 05/23/2002 Outpatient Historical [facility] Internal Medicine [address] [address] [place]elo [place]ñas [place] [id number] [address] Social History Tobacco Use Types Packs/Day Years Used Date Smoking Tobacco: Never Assessed Comments Unknown Sex and Gender Information Value Date Recorded Sex Assigned at Not on file Legal Sex Female 4:47 AM TUNNEL WORKER Gender Identity Not on file Sexual [...] (Late Contact Info) Description 03/06/2025 4:40 PM TUNNEL WORKER Office Visit [facility] Primary Care [address] [place] [address] Carmelo Dueñas [place] [id number] [place] [address] documented as of this encounter Visit Diagnoses Not on filedocumented in this encounter Care Teams Equipment Operator Warehouse Relationship Specialty Start Date End Date Carmelo Dueñas MD [address] [place] [address] PCP - General 03/06/02 documented as of this encounter
--- OUTSIDE RECORDS SUMMARY | 2025-01-29 19:51 | XMS_ITS | Encounter Summary ---
Author Organization [facility] Address [address] [place] [address] Care Team Providers Care Spray Drier Operator Helper Name Role Phone Carmelo Dueñas MD Primary Care Provider [phone]- [phone] Encounter Details Date Type Department Care Team (Late Contact Info) Description 08/22/2002 Outpatient Historical [facility] Internal Medicine [address] [address] Carmelo Dueñas MD [address] [place] [address] Social History Tobacco Use Types Packs/Day Years Used Date Smoking Tobacco: Never Assessed Comments Unknown Sex and Gender Information Value Date Recorded Sex Assigned at Not on file Legal Sex Female 4:47 AM CONTRACT IMPLEMENTATION ANALYST Gender Identity Not on file Sexual Orientation [...] st Contact Info) Description 03/06/2025 4:40 PM CONTRACT IMPLEMENTATION ANALYST Office Visit [facility] Primary Care [address] [place] [address] Carmelo [place]ñas [place] [address] [address] documented as of this encounter Visit Diagnoses Not on filedocumented in this encounter Care Teams Spray Drier Operator Helper Relationship Specialty Start Date End Date Carmelo Dueñas [place] [id number] [place] [address] PCP - General 03/06/02 documented as of this encounter
--- OUTSIDE RECORDS SUMMARY | 2025-01-29 19:52 | XMS_ITS | Encounter Summary ---
Author Organization [facility] Address [address] [place] [address] Care Team Providers Care Printing Film Stripper Name Role Phone Carmelo Dueñas MD Primary Care Provider +1- [phone] Reason for Visit * Reason Comments Question Encounter Details Date Type Department Care Team (Late st Contact Info) Description 05/23/[address] [facility] Primary Care [address] [place] [address] Carmelo Dueñas MD [address] [place] [phone] Question Social History Tobacco Use Types [...] than three times a week 01/23/2020 Attends [employer] Not on file 01/22 Active Member [...] on file Legal Sex Female 4:47 AM RECOVERY ROOM RN Gender Identity Not on file Sexual Orientation [...] - 05/23/2024 9:47 AM CDT Copied from [facility] #[id number]. Topic: Patient or Caregiver Communication Request >> May 23, 2024 9:44 AM Dana Linn wrote: Patient or Caregiver requesting advice Caller: Noemi Gaytan Patient/Caregiver Callback Number: [phone] Call Notes: Patient states dr anderson office [...] st Contact Info) Description 03/06/2025 4:40 PM RECOVERY ROOM RN Office Visit [facility] Primary Care [address] [place] [address] Carmelo Dueñas MD [address] [place] [phone] documented as of this encounter Visit Diagnoses Not on filedocumented in this encounter Care Teams Printing Film Stripper Relationship Specialty Start Date End Date Carmelo Dueñas MD [address] [place] [phone] PCP - General 03/06/02 documented as of this encounter
--- OUTSIDE RECORDS SUMMARY | 2025-01-29 19:52 | XMS_ITS | Encounter Summary ---
Author Organization [facility] Address [address] [place] [address] Care Team Providers Care Factory Expert Name Role Phone Carmelo Dueñas MD Primary Care Provider +1- [phone] Encounter Details Date Type Department Care Team (Late st Contact Info) Description 04/21/2007 Orders Only [facility] Internal Medicine [address] [address] Carmelo Dueñas MD [address] [place] [phone] Social History Tobacco Use Types Packs/Day Years Used Date Smoking Tobacco: Never Assessed Comments Unknown Sex and Gender Information Value Date Recorded Sex Assigned at Not on file Legal Sex Female 4:47 AM FUR DRESSER Gender Identity Not on file Sexual Orientation Not on file documented as of this encounter Progress Notes * Carmelo Dueñas MD - 07/21/2007 5:48 PM CDT CENTRAL TEST SCHEDULING DATE: APR 21, 2007 Note created by: Katie Cabral L 11:47 a Patient Name : LOUISE GAYTAN Address: [facility] [place] [address] D.O.B: 1945 SSN: [id number] Parent/Guardian if applicable: Patient Insurance: [employer] ID#: [id number] Group#: ORDER(S) #: [id number] BEST TO CALL HOME. BEST TIME TO CALL: PLEASE SCHEDULE THE APPOINTMENT AT THE FOLLOWING LOCATION: please advise her of locations near her home. TEST PRIORITY: 2 - 7 DAYS. SPECIAL SCHEDULING INSTRUCTIONS: needs prep ORDERING PHYSICIAN: CARMELO DUEÑAS MD OFFICE ACCOUNTS RECEIVABLE SPECIALIST & PHONE: Katie Cabral L ORDER PRINTED BY: APR 23, 2007 Dorie Magaña T 08:18 a FOR SCHEDULING USE ONLY: FIRST ATTEMPT Date:APR 23, 2007 Dorie Magaña T 10:47 a Left message on Recorder. SECOND ATTEMPT: Date:APR 26, 2007 Spring Dong K 12:02 p Spoke with Patient. PT CALLED TO SCHED APPT. APR 26, 2007 Spring Dong K 12:02 p TEST SCHEDULE [facility]. APPOINTMENT DATE : 05/06/2007 ( 8:45 AM) The appointment was scheduled by Spring Dong K at [phone] APR 26, 2007 Spring Dong K 12:03 p Pre-authorization number: ANTHEM NN FINAL ACTION Follow up completed. * Carmelo Dueñas MD - 07/21/2007 5:48 PM CDT WEIGHT: 125lbs BLOOD PRESSURE: 138/82 Left Arm Sitting NURSE NAME: Tim OrtaAury TOBACCO USE Patient does not currently use [...] LAB ORDERS: fasting 3 months Order number: [id number] Test Ordered: CBC W/ DIFFERENTIAL 3150 Order number: [id number] Test Ordered: COMPREHENSIVE METABOLIC PANEL & GFR 1112 Order number: [id number] Test Ordered: LIPID PANEL 1078 Order number: [id number] Test Ordered: TSH 1720 401.1-HYPERTENSION ESSENTIAL BENIGN ASSESSMENT: The blood pressure remains satisfactory. Will not change medication, continue to monitor for complications. The patient was encouraged to follow a low salt diet. Regular aerobic exercise was encouraged. Weight loss was discussed and encouraged. 530.81-GASTROESOPHAGEAL REFLUX (GERD) ASSESSMENT: The patient's reflux esophagitis has improved.but persistent sx despite protonix daily LAB ORDERS: Order number: [id number] Test Ordered: BARIUM SWALLOW 715.09-OSTEOARTHROSIS AND ALLIED [...] st Contact Info) Description 03/06/2025 4:40 PM FUR DRESSER Office Visit [facility] Primary Care [address] [place] [address] Carmelo Dueñas MD [address] [place] [phone] documented as of this encounter Visit Diagnoses Not on filedocumented in this encounter Care Teams Factory Expert Relationship Specialty Start Date End Date Carmelo Dueñas [place] [id number] [place] [address] [address] [place] [address] PCP - General 03/06/02 documented as of this encounter
--- OUTSIDE RECORDS SUMMARY | 2025-01-29 19:52 | XMS_ITS | Encounter Summary ---
Author Organization [facility] Address [address] [place] [address] Care Team Providers Care Film Processing Shift Supervisor Name Role Phone Carmelo Dueñas MD Primary Care Provider +1- [phone] Encounter Details Date Type Department Care Team (Late Contact Info) Description 01/20/2007 Outpatient Historical [facility] Internal Medicine [address] [address] [place]elo [place] [address] [facility] [address] [place] [address] Social History Tobacco Use Types Packs/Day Years Used Date Smoking Tobacco: Never Assessed Comments Unknown Sex and Gender Information Value Date Recorded Sex Assigned at Not on file Legal Sex Female 4:47 AM LACE ROLLER OPERATOR Gender Identity Not on file Sexual Orientation Not on file documented as of this encounter Plan of Treatment Upcoming Encounters Date Type Department Care Team (Late Contact Info) Description 03/06/2025 4:40 PM LACE ROLLER OPERATOR Office Visit [facility] Primary Care [address] [place] [phone] Carmelo [place] [address] [facility] [address] [place] [address] documented as of this encounter Visit Diagnoses Not on filedocumented in this encounter Care Teams Film Processing Shift Supervisor Relationship Specialty Start Date End Date Carmelo Dueñ[place] [address] [address] PCP - General 03/06/02 documented as of this encounter
--- OUTSIDE RECORDS SUMMARY | 2025-01-29 19:52 | XMS_ITS | Encounter Summary ---
Author Organization [facility] Address [address] [place] [address] Care Team Providers Care Camera Operator Name Role Phone Carmelo Dueñas MD Primary Care Provider +1- [phone] Encounter Details Date Type Department Care Team (Late st Contact Info) Description 09/01/2005 Orders Only [facility] Internal Medicine [address] [address] [place]rm[place] [address] [address] Social History Tobacco Use Types Packs/Day Years Used Date Smoking Tobacco: Never Assessed Comments Unknown Sex and Gender Information Value Date Recorded Sex Assigned at Not on file Legal Sex Female 4:47 AM GRAPHIC DESIGN ASSISTANT Gender Identity Not on file Sexual [...] Signed by: Carmelo Dueñas MD on Thursday, September 01, 2005 documented in this encounter Plan of Treatment Upcoming Encounters Date Type Department Care Team (Late st Contact Info) Description 03/06/2025 4:40 PM GRAPHIC DESIGN ASSISTANT Office Visit [facility] Care [facility] [address] [place] [address] [address] [place] [address] Carmelo Dueñas MD [address] [place] [phone] documented as of this encounter Visit Diagnoses Not on filedocumented in this encounter Care Teams Camera Operator Relationship Specialty Start Date End Date Carmelo Dueñas MD [address] [place] [phone] PCP - General 03/06/02 documented as of this encounter
--- OUTSIDE RECORDS SUMMARY | 2025-01-29 19:52 | XMS_ITS | Encounter Summary ---
Author Organization [facility] Address [address] [place] [address] Care Team Providers Care Asphalt Paving Foreman Name Role Phone Carmelo Dueñas MD Primary Care Provider +1- [phone] Encounter Details Date Type Department Care Team (Late Contact Info) Description 07/20/2006 Outpatient Historical [facility] Internal Medicine [address] [address] [place]elo [place] [address] [address] Social History Tobacco Use Types Packs/Day Years Used Date Smoking Tobacco: Never Assessed Comments Unknown Sex and Gender Information Value Date Recorded Sex Assigned at Not on file Legal Sex Female 4:47 AM PULP PILER Gender Identity Not on file Sexual Orientation [...] (Late Contact Info) Description 03/06/2025 4:40 PM PULP PILER Office Visit [facility] Primary Care [address] [place] [address] Carmelo Dueñas [place] [address] [place] [phone] documented as of this encounter Visit Diagnoses Not on filedocumented in this encounter Care Teams Asphalt Paving Foreman Relationship Specialty Start Date End Date Carmelo Dueñas [place] [address] [place] [phone] PCP - General 03/06/02 documented as of this encounter
--- OUTSIDE RECORDS SUMMARY | 2025-01-29 19:52 | XMS_ITS | Encounter Summary ---
Author Organization [facility] Address [address] [place] [address] Care Team Providers Care Technical Product Manager Name Role Phone Carmelo Dueñas MD Primary Care Provider +1- [phone] Encounter Details Date Type Department Care Team (Late st Contact Info) Description 05/06/2007 Outpatient Historical [facility] Carmelo Dueñas [place] [address] [place] [address] Esophageal Reflux Social History Tobacco Use Types Packs/Day Years Used Date Smoking Tobacco: Never Assessed Comments Unknown Sex and Gender Information Value Date Recorded Sex Assigned at Not on file Legal Sex Female 4:47 AM TELECOMMUNICATION ENGINEER Gender Identity Not on file Sexual Orientation Not on file documented as of this encounter Plan of Treatment Upcoming Encounters Date Type Department Care Team (Late Contact Info) Description 03/06/2025 4:40 PM TELECOMMUNICATION ENGINEER Office Visit [facility] Primary Care [address] [place] [address] Carmelo [place] [address] [facility] [address] [place] [address] documented as of this encounter Procedures Procedure Name Priority Date/Time Associated Diagnosis Comments XR ESOPHAGUS BARIUM SWALLOW Timed Study 05/06/2007 7:55 AM CDT documented in this encounter Results * XR ESOPHAGUS BARIUM SWALLOW (05/06/2007 7:55 AM CDT) Anatomical Region Laterality Modality Abdomen Other 05/06/2007 7:55 AM CDT Narrative 05/06/2007 11:36 AM CDT [facility] [address] [place], [place] [address] Admit Date: 05/06/2007 LOUISE GAYTAN Sex: F Admit Prov: CARMELO DUEÑAS Date: 1945 Primary Care Prov: CARMELO DUEÑAS CMRN: [id number] [id number] Ordering Prov: N/A Accession Number: [id number] Interpretation Esophagram barium swallow 05/06/2007 Clinical history: [...] AMK Procedure Note Provider, Historical - 05/06/2007 [facility] [address] [place], [place] [address] Admit Date: 05/06/2007 LOUISE GAYTAN Sex: F Admit Prov: CARMELO DUEÑAS Date: 1945 Primary Care Prov: CARMELO DUEÑAS CMRN: [id number] Room: [facility] SSN: [id number] IMAGING SERVICES Ordering Prov: N/A Interpretation Esophagram [...] reflux documented in this encounter Care Teams Technical Product Manager Relationship Specialty Start Date End Date Carmelo [place] [address] [address] PCP - General 03/06/02 documented as of this encounter
--- OUTSIDE RECORDS SUMMARY | 2025-01-29 19:52 | XMS_ITS | Encounter Summary ---
Author Organization [facility] Address [address] [place] [address] Care Team Providers Care Filter Washer Name Role Phone Carmelo Dueñas MD Primary Care Provider +1- [phone] Encounter Details Date Type Department Care Team (Late Contact Info) Description 07/06/2006 Outpatient Historical [facility] Internal Medicine [address] [address] Carmelo Dueñas MD [address] [place] [address] Social History Tobacco Use Types Packs/Day Years Used Date Smoking Tobacco: Never Assessed Comments Unknown Sex and Gender Information Value Date Recorded Sex Assigned at Not on file Legal Sex Female 4:47 AM GRAPPLE YARDER OPERATOR Gender Identity Not on file Sexual [...] st Contact Info) Description 03/06/2025 4:40 PM GRAPPLE YARDER OPERATOR Office Visit [facility] Primary Care [address] [place] [address] [place]elo [place] [address] [address] documented as of this encounter Visit Diagnoses Not on filedocumented in this encounter Care Teams Filter Washer Relationship Specialty Start Date End Date Carmelo Dueñas [place] [address] [place] [phone] PCP - General 03/06/02 documented as of this encounter
--- OUTSIDE RECORDS SUMMARY | 2025-01-29 19:52 | XMS_ITS | Encounter Summary ---
Author Organization [facility] Address [address] [place] [address] Care Team Providers Care Poolroom/Poolhall Manager Name Role Phone Carmelo Dueñas MD Primary Care Provider +1- [phone] Encounter Details Date Type Department Care Team (Late st Contact Info) Description 10/29/2006 Orders Only [facility] Internal Medicine [address] [address] Carmelo Dueñas MD [address] [place] [address] Social History Tobacco Use Types Packs/Day Years Used Date Smoking Tobacco: Never Assessed Comments Unknown Sex and Gender Information Value Date Recorded Sex Assigned at Not on file Legal Sex Female 4:47 AM PATTERNMAKER PLASTICS Gender Identity Not on file Sexual Orientation Not on file documented as of this encounter Progress Notes * Carmelo Dueñas MD - 07/01/2007 5:16 PM CDT TIME:02:56 pm PATIENT`S HOME PHONE: PATIENT`S WORK PHONE: PATIENT`S INSURANCE: [employer] WHO TOOK THE CALL: Dalila Byrd L GENERAL INFORMATION ALTERNATIVE PHONE NUMBER: [phone] WHO CALLED: Patient called. SECTION 1: REQUESTED [...] & ORDERS: 272.4-HYPERLIPIDEMIA LAB ORDERS: Order number: [id number] Test Ordered: COMPREHENSIVE METABOLIC PANEL & GFR 1112 Order number: [id number] Test Ordered: LIPID PANEL 1078 Order number: [id number] Test Ordered: TSH 1720 SECTION 3: DOCTOR`S [...] st Contact Info) Description 03/06/2025 4:40 PM PATTERNMAKER PLASTICS Office Visit [facility] Primary Care [address] [place] [address] Carmelo Dueñas MD [address] [place] [address] documented as of this encounter Visit Diagnoses Not on filedocumented in this encounter Care Teams Poolroom/Poolhall Manager Relationship Specialty Start Date End Date Carmelo Dueñas MD [address] [place] [phone] PCP - General 03/06/02 documented as of this encounter
--- OUTSIDE RECORDS SUMMARY | 2025-01-29 19:52 | XMS_ITS | Encounter Summary ---
Author Organization [facility] Address [address] [place] [address] Care Team Providers Care Filter Tank Tender Name Role Phone Carmelo Dueñas MD Primary Care Provider +1- [phone] Encounter Details Date Type Department Care Team (Late Contact Info) Description 04/21/2007 Outpatient Historical [facility] Internal Medicine [address] [address] Carmelo Dueñ[place] [address] [facility] [address] [place] [address] Social History Tobacco Use Types Packs/Day Years Used Date Smoking Tobacco: Never Assessed Comments Unknown Sex and Gender Information Value Date Recorded Sex Assigned at Not on file Legal Sex Female 4:47 AM SAIL REPAIR PERSON Gender Identity Not on file Sexual Orientation Not on file documented as of this encounter Plan of Treatment Upcoming Encounters Date Type Department Care Team (Late Contact Info) Description 03/06/2025 4:40 PM SAIL REPAIR PERSON Office Visit [facility] Primary Care [address] [place] [address] Carmelo [place] [address] [facility] [address] [place] [address] documented as of this encounter Visit Diagnoses Not on filedocumented in this encounter Care Teams Filter Tank Tender Relationship Specialty Start Date End Date Carmelo Dueñ[place] [address] [address] PCP - General 03/06/02 documented as of this encounter
--- OUTSIDE RECORDS SUMMARY | 2025-01-29 19:52 | XMS_ITS | Encounter Summary ---
Author Organization [facility] Address [address] [place] [address] Care Team Providers Care Technical Services Manager Name Role Phone Carmelo Dueñas MD Primary Care Provider +1- [phone] Encounter Details Date Type Department Care Team (Late st Contact Info) Description 04/07/2005 Orders Only [facility] Internal Medicine [address] [address] Carmelo Dueñas MD [address] [place] [address] Social History Tobacco Use Types Packs/Day Years Used Date Smoking Tobacco: Never Assessed Comments Unknown Sex and Gender Information Value Date Recorded Sex Assigned at Not on file Legal Sex Female 4:47 AM BRASS BURNISHER Gender Identity Not on file Sexual Orientation Not on file documented as of this encounter Progress Notes * Carmelo Dueñas MD - 11/24/2007 3:37 PM CDT TIME:09:19 am PATIENT`S HOME PHONE: PATIENT`S WORK PHONE: PATIENT`S INSURANCE: WHO TOOK THE CALL: Jennifer Moreira GENERAL INFORMATION PCP: lamberto WHO CALLED: Patient called. ALTERNATIVE PHONE NUMBER: [phone] PHARMACY NUMBER: [phone] SECTION 1: REQUESTED ACTION [...] st Contact Info) Description 03/06/2025 4:40 PM BRASS BURNISHER Office Visit [facility] Primary Care [facility] [address] [facility] [address] [place] [address] Carmelo Dueñas MD [address] [place] [address] documented as of this encounter Visit Diagnoses Not on filedocumented in this encounter Care Teams Technical Services Manager Relationship Specialty Start Date End Date Carmelo Dueñas MD [address] [place] [address] PCP - General 03/06/02 documented as of this encounter
--- OUTSIDE RECORDS SUMMARY | 2025-01-29 19:52 | XMS_ITS | Encounter Summary ---
Author Organization [facility] Address [address] [place] [address] Care Team Providers Care Anodic Treater Name Role Phone Carmelo Dueñas MD Primary Care Provider +1- [phone] Encounter Details Date Type Department Care Team (Late Contact Info) Description 12/07/2005 Outpatient Historical [facility] Internal Medicine [address] [address] Carmelo Dueñas [place] [address] [address] Social History Tobacco Use Types Packs/Day Years Used Date Smoking Tobacco: Never Assessed Comments Unknown Sex and Gender Information Value Date Recorded Sex Assigned at Not on file Legal Sex Female 4:47 AM ELECTRONIC SYSTEMS SECURITY ASSESSMENT Gender Identity Not on file Sexual Orientation [...] (Late Contact Info) Description 03/06/2025 4:40 PM ELECTRONIC SYSTEMS SECURITY ASSESSMENT Office Visit [facility] Primary Care [address] [place] [address] Carmelo Dueñas [place] [address] [place] [address] documented as of this encounter Visit Diagnoses Not on filedocumented in this encounter Care Teams Anodic Treater Relationship Specialty Start Date End Date Carmelo Dueñas [place] [address] [place] [address] PCP - General 03/06/02 documented as of this encounter
--- OUTSIDE RECORDS SUMMARY | 2025-01-29 19:52 | XMS_ITS | Encounter Summary ---
Author Organization [facility] Address [address] [place] [address] Care Team Providers Care Sr Technical Sales Consultant Name Role Phone Carmelo Dueñas MD Primary Care Provider +1- [phone] Encounter Details Date Type Department Care Team (Late Contact Info) Description 01/20/2007 Outpatient Historical [facility] Internal Medicine [address] [address] Carmelo Dueñas [place] [address] [facility] [address] [place] [address] Social History Tobacco Use Types Packs/Day Years Used Date Smoking Tobacco: Never Assessed Comments Unknown Sex and Gender Information Value Date Recorded Sex Assigned at Not on file Legal Sex Female 4:47 AM REFRACTORY REPAIRER Gender Identity Not on file Sexual Orientation Not on file documented as of this encounter Plan of Treatment Upcoming Encounters Date Type Department Care Team (Late Contact Info) Description 03/06/2025 4:40 PM REFRACTORY REPAIRER Office Visit [facility] Primary Care [address] [place] [address] Carmelo Dueñas [place] [address] [facility] [address] [place] [address] documented as of this encounter Visit Diagnoses Not on filedocumented in this encounter Care Teams Sr Technical Sales Consultant Relationship Specialty Start Date End Date Carmelo Dueñ[place] [address] [address] PCP - General 03/06/02 documented as of this encounter
--- OUTSIDE RECORDS SUMMARY | 2025-01-29 19:52 | XMS_ITS | Encounter Summary ---
Author Organization [facility] Address [address] [place] [address] Care Team Providers Care Forging Press Lever Tender Name Role Phone Carmelo Dueñas MD Primary Care Provider +1- [phone] Encounter Details Date Type Department Care Team (Late Contact Info) Description 09/01/2005 Outpatient Historical [facility] Internal Medicine [address] [address] Carmelo Dueñas [place] [address] [address] Social History Tobacco Use Types Packs/Day Years Used Date Smoking Tobacco: Never Assessed Comments Unknown Sex and Gender Information Value Date Recorded Sex Assigned at Not on file Legal Sex Female 4:47 AM PATIENT ADMITTING REPRESENTATIVE Gender Identity Not on file Sexual Orientation [...] (Late Contact Info) Description 03/06/2025 4:40 PM PATIENT ADMITTING REPRESENTATIVE Office Visit [facility] Primary Care [address] [place] [address] Carmelo Dueñas MD [address] [place] [address] documented as of this encounter Visit Diagnoses Not on filedocumented in this encounter Care Teams Forging Press Lever Tender Relationship Specialty Start Date End Date Carmelo Dueñas [place] [address] [place] [address] PCP - General 03/06/02 documented as of this encounter
--- OUTSIDE RECORDS SUMMARY | 2025-01-29 19:52 | XMS_ITS | Encounter Summary ---
Author Organization [facility] Address [address] [place] [address] Care Team Providers Care Catch Basin Cleaner Name Role Phone Carmelo Dueñas MD Primary Care Provider +1- [phone] Encounter Details Date Type Department Care Team (Late Contact Info) Description 09/24/2003 Outpatient Historical [facility] Internal Medicine [address] [address] [place]elo [place] [address] [address] Social History Tobacco Use Types Packs/Day Years Used Date Smoking Tobacco: Never Assessed Comments Unknown Sex and Gender Information Value Date Recorded Sex Assigned at Not on file Legal Sex Female 4:47 AM ELECTRICAL MANUFACTURING ENGINEER Gender Identity Not on file Sexual [...] (Late Contact Info) Description 03/06/2025 4:40 PM ELECTRICAL MANUFACTURING ENGINEER Office Visit [facility] Primary Care [address] [place] [address] Camrelo Dueñas [place] [id number] [place] [address] documented as of this encounter Visit Diagnoses Not on filedocumented in this encounter Care Teams Catch Basin Cleaner Relationship Specialty Start Date End Date Carmelo Dueñas [place] [address] [place] [address] PCP - General 03/06/02 documented as of this encounter
--- OUTSIDE RECORDS SUMMARY | 2025-01-29 19:52 | XMS_ITS | Encounter Summary ---
Author Organization [facility] Address [address] [place] [address] Care Team Providers Care Drop Man Name Role Phone Carmelo Dueñas MD Primary Care Provider +1- [phone] Encounter Details Date Type Department Care Team (Late Contact Info) Description 01/20/2007 Outpatient Historical [facility] Internal Medicine [address] [address] [place]elo [place]ñas [place] [address] [facility] [address] [place] [address] Social History Tobacco Use Types Packs/Day Years Used Date Smoking Tobacco: Never Assessed Comments Unknown Sex and Gender Information Value Date Recorded Sex Assigned at Not on file Legal Sex Female 4:47 AM ROOFER METAL Gender Identity Not on file Sexual Orientation Not on file documented as of this encounter Plan of Treatment Upcoming Encounters Date Type Department Care Team (Late Contact Info) Description 03/06/2025 4:40 PM ROOFER METAL Office Visit [facility] Primary Care [address] [place] [address] Carmelo [place] [address] [facility] [address] [place] [address] documented as of this encounter Visit Diagnoses Not on filedocumented in this encounter Care Teams Drop Man Relationship Specialty Start Date End Date Carmelo Dueñ[place] [address] [address] PCP - General 03/06/02 documented as of this encounter
--- OUTSIDE RECORDS SUMMARY | 2025-01-29 19:52 | XMS_ITS | Encounter Summary ---
Author Organization [facility] Address [address] [place] [address] Care Team Providers Care Rv Parts And Service Director Name Role Phone Carmelo Dueñas MD Primary Care Provider +1- [phone] Encounter Details Date Type Department Care Team (Late st Contact Info) Description 04/23/2005 Orders Only [facility] Internal Medicine [address] [address] [place]elo [place] [address] [address] Social History Tobacco Use Types Packs/Day Years Used Date Smoking Tobacco: Never Assessed Comments Unknown Sex and Gender Information Value Date Recorded Sex Assigned at Not on file Legal Sex Female 4:47 AM TURN MACHINE OPERATOR Gender Identity Not on file [...] will recheck BMD LAB ORDERS: Order number: [id number] Test Ordered: BONE DENSITY V76.10-SCREENING FOR CA OF BREAST LAB ORDERS: Order number: [id number] Test Ordered: MAMMOGRAM 2 VIEW 788.31-SYMPTOMS INVOLVING URINARY SYSTEM will try some detrol and see how she does SPECIALTY REFERRAL: GASTROENTEROLOGY Dr. Travis Lino ph: [phone] fax: [phone].Replaced By [facility] HEALTH MAINTENANCE: DISCUSSED SMOKING: ExS. INJURY PREVENTION [...] cath and stress test recently done at Replaced By [facility], and chol profile RETURN VISIT : Patient instructed to return in 3 months. Electronically Signed by: Carmelo Dueñas MD on April documented in this encounter Plan of Treatment Upcoming Encounters Date Type Department Care Team (Late st Contact Info) Description 03/06/2025 4:40 PM TURN MACHINE OPERATOR Office Visit [facility] [address] [place] [address] Carmelo Dueñas MD [address] [place] [address] documented as of this encounter Visit Diagnoses Not on filedocumented in this encounter Care Teams Rv Parts And Service Director Relationship Specialty Start Date End Date Carmelo Dueñas MD [address] [place] [address] PCP - General 03/06/02 documented as of this encounter
--- OUTSIDE RECORDS SUMMARY | 2025-01-29 19:52 | XMS_ITS | Encounter Summary ---
Author Organization [facility] Address [address] [place] [address] Care Team Providers Care Successfactors Consultant Name Role Phone Carmelo Dueñas MD Primary Care Provider +1- [phone] Encounter Details Date Type Department Care Team (Late st Contact Info) Description 04/12/2006 Orders Only [facility] Internal Medicine [address] [address] Carmelo Dueñas MD [address] [place] [address] Social History Tobacco Use Types Packs/Day Years Used Date Smoking Tobacco: Never Assessed Comments Unknown Sex and Gender Information Value Date Recorded Sex Assigned at Not on file Legal Sex Female 4:47 AM PUMP ATTENDANT Gender Identity Not on file Sexual Orientation Not on file documented as of this encounter Progress Notes * Carmelo Dueñas MD - 07/08/2007 8:53 PM CDT TIME:11:45 am PATIENT`S HOME PHONE: PATIENT`S WORK PHONE: PATIENT`S INSURANCE: [facility] MRI Interventions [facility] WHO TOOK THE CALL: Dorota Keller R GENERAL INFORMATION ALTERNATIVE PHONE NUMBER: [phone] WHO CALLED: Patient called. CURRENT ALLERGY LIST: BEE STING CODEINE DERIVATIVES IOD[facility] NUMBER: [phone] PROBLEMS: patient's mother just . Noemi will [...] st Contact Info) Description 03/06/2025 4:40 PM PUMP ATTENDANT Office Visit [facility] Primary Care [facility] [address] [facility] [address] [place] [address] Carmelo Dueñas MD [address] [place] [address] documented as of this encounter Visit Diagnoses Not on filedocumented in this encounter Care Teams Successfactors Consultant Relationship Specialty Start Date End Date Carmelo Dueñas MD [address] [place] [phone] PCP - General 03/06/02 documented as of this encounter
--- OUTSIDE RECORDS SUMMARY | 2025-01-29 19:52 | XMS_ITS | Encounter Summary ---
Author Organization [facility] Address [address] [place] [address] Care Team Providers Care Neck Band Setter Name Role Phone Carmelo Dueñas MD Primary Care Provider +- [phone] Encounter Details Date Type Department Care Team (Latest Contact Info) Description 10/21/2007 Outpatient Historical [facility] [place]elo [place] [address] [address] Other Screening Mammogram Social History Tobacco Use Types Packs/Day Years Used Date Smoking Tobacco: Former Cigarettes 20 0 10/17/1962 - 10/17/1982 Alcohol Use Standard Drinks/Week Comments Yes 0 (1 standard drink = 0.6 oz pur e alcohol) Comments No Sex and Gender Information Value Date Recorded Sex Assigned at Not on file Legal Sex Female 4:47 AM WELDING MACHINE OPERATOR GAS Gender Identity Not on file Sexual Orientation Not on file documented as of this encounter Plan of Treatment Upcoming Encounters Date Type Department Care Team (Late st Contact Info) Description 03/06/2025 4:40 PM WELDING MACHINE OPERATOR GAS Office Visit [facility] Primary Care [facility] [address] [facility] [address] [place] [address] Carmelo [place] [address] [facility] [address] [place] [address] documented as of this encounter [...] * TSH (10/26/2007 10:00 PM CDT) Pathologist [facility] TSH 2.15 0.40 - 4.50 mIU/L [facility] Comment: Test Performed at: [facility] [place] [address] [place] [address] MONTY PENA MD Carmelo Dueñas MD CHEMISTRY ORDERABLES Final Result INTERFACE SYSTEM Refer to clinic/hospital department [facility] [address] [place] [address] * CBC WITH DIFFERENTIAL (10/26/2007 10:00 PM CDT) Pathologist [facility] WBC 4.6 3.8 - 10.8 Thousand/u L [facility] RBC 4.66 3.80 - 5.10 Million/uL [facility] HEMOGLOBIN 13.6 11.7 - 15.5 g/dL [facility] [...] 1,582 850 - 3,900 cells/uL [facility] MONOCYTE ABSOLUTE 308 200 - 950 cells/uL [facility] . CELESTINE EOSINOPHIL ABSOLUTE 55 15 - 500 cells/uL [facility] . CELE[facility]INE BASOPHILS ABSOLUTE 23 0 - 200 cells/uL [facility] . [place] NEUTROPHIL 57.2 % [facility] . [place]LESTINE LYMPHOCYTES 34.4 % [facility] . [place] MONOCYTE 6.7 % [facility] . CELESTINE EOSINOPHILS 1.2 % [facility] . CELESTINE BASOPHILS 0.5 % [facility] . [facility] Comment: Test Performed at: [facility] [place] [address] [place] [address] MONTY PENA MD Carmelo Dueñas MD HEMATOLOGY ORDERABLES Johanne bourne Result INTERFACE SYSTEM Refer to clinic/hospital department [facility] [address] [place] [address] * COMPREHENSIVE METABOLIC PANEL (10/26/2007 10:00 PM CDT) GLUCOSE 94 65 - 99 mg/dL [facility] Comment:FASTING REFERENCE IN TERVAL BUN 22 7 - 25 mg/dL [facility] CREATININE 0.89 0.50 - 1.20 mg/dL [facility] GFR >60 > OR = 60 mL/min/1 .73m2 [facility] GFR, >60 > OR = 60 mL/min/1 .73m2 [facility] BUN/CREAT RATIO NOT APPLICABLE 6 - 22 (calc) [facility] Comment: BUN/CREATININE RATIO IS NOT REPORTED WHEN THE BUN AND CREATININE VALUES ARE WITHIN NORMAL LIMITS. SODIUM 140 135 - 146 mmol/L [facility] . [facility] POTASSIUM 4.4 3.5 - 5.3 mmol/L [facility] . [facility] CHLORIDE 103 98 - 110 mmol/L [facility] DIAGNOSTICS . [facility] CO2 22 21 - 33 mmol/L [facility] . [facility] CALCIUM 10.2 8.6 - 10.2 mg/dL [facility] . [facility] TOTAL PROTEIN 7.2 6.2 - 8.3 g/dL [facility] ALBUMIN 4.6 3.6 - 5.1 g/dL [facility] . [facility] GLOBULIN 2.6 2.2 - 3.9 g/dL (calc) [facility] ALBUMIN/GLOBULI N RATIO 1.8 1.0 - 2.1 (calc) [facility] BILIRUBIN TOTAL 0.5 0.2 - 1.2 mg/dL [facility] ALKALINE PHOSPHATASE 102 33 - 130 U/L [facility] AST 19 10 - 35 U/L [facility] . [facility] ALT 17 6 - 40 U/L [facility] Comment: Test Performed at: [place] [facility] [place] [address] MONTY PENA MD Carmelo Dueñas MD CHEMISTRY ORDERABLES Final Result Performing Organization Address [facility] Phone Number INTERFACE SYSTEM Refer to clinic/hospital department [facility] [place] [address] * (ABNORMAL) LIPID PANEL (10/26/2007 10:00 PM CDT) TRIGLYCERIDE 142 <150 mg/dL [facility] Comment: Test Performed at: [place] [facility] [place] [address] MONTY PENA MD CHOLESTEROL 215(H) 125 - 200 mg/dL [facility] HDL 84 > OR = 46 mg/dL [facility] LDL CALCULATED 103 <130 mg/dL (calc) [facility] Comment: DESIRABLE RANGE <100 MG/DL FOR PATIENTS WITH CHD OR DIABETES AND <70 MG/DL FOR DIABETIC PATIENTS WITH KNOWN HEART DISEASE. CHOL/HDL RATIO 2.6 < OR = 5.0 (calc) [facility] Carmelo Dueñas MD CHEMISTRY ORDERABLES Final Result Performing Organization Address [facility] de Phone Number INTERFACE SYSTEM Refer to clinic/[place] [address] * MAMMO DIGITAL SCREEN BILAT (10/21/2007 9:06 AM CDT) Anatomical Region Laterality Modality Breast Bilateral Other 10/21/2007 9:06 AM CDT Narrative 10/24/2007 12:01 PM CDT [address] [address] Admit Date: 10/21/2007 LOUISE GAYTAN Sex: F Admit Prov: CARMELO DUEÑAS Date: 1945 Primary Care Prov: CARMELO DUEÑAS CMRN: [id number] Room: [facility]: [id number] IMAGING SERVICES Ordering Prov: CARMELO DUEÑAS Accession Number: [id number] Interpretation DIGITAL SCREENING MAMMOGRAM WITH COMPUTER ASSISTED [...] CELESTINE COTTO 10/24/2007 12:01 Transcribed: 10/24/2007 12:01 [facility] Procedure Note Celestine Cotto MD - 10/24/[address] [address] Admit Date: 10/21/2007 LOUISE GAYTAN Sex: F Admit Prov: CARMELO DUEÑAS Date: 1945 Primary Care Prov: CARMELO DUEÑAS CMRN: [id number] [id number] IM[facility]ING SERVICES Ordering Prov: CARMELO DUEÑAS Interpretation [...] CELESTINE COTTO 10/24/2007 12:01 Transcribed: 10/24/2007 12:01 [facility] us Carmelo Dueñas MD MAMMO ORDERABLES Final Res ult documented in this encounter Visit Diagnoses Diagnosis Other screening mammogram documented in this encounter Care Teams Neck Band Setter Relationship Specialty Start Date End Date Carmelo [place] [address] [phone] PCP - General 03/06/02 documented as of this encounter
--- OUTSIDE RECORDS SUMMARY | 2025-01-29 19:52 | XMS_ITS | Encounter Summary ---
Author Organization [facility] Address [address] [place] [address] Care Team Providers Care Motion Picture Set Worker Name Role Phone Carmelo Dueñas MD Primary Care Provider +1- [phone] Encounter Details Date Type Department Care Team (Late st Contact Info) Description 02/04/2004 Outpatient Historical [facility] Internal Medicine [address] [address] Carmelo Dueñas [place] [address] [place] [place] [address] Social History Tobacco Use Types Packs/Day Years Used Date Smoking Tobacco: Never Assessed Comments Unknown Sex and Gender Information Value Date Recorded Sex Assigned at Not on file Legal Sex Female 4:47 AM DISASTER RESPONSE DIRECTOR Gender Identity Not on file Sexual Orientation Not on file documented as of this encounter Last Filed Vital Signs Vital Sign Reading Time Taken Comments Blood Pressure 120/70 02/04/2004 1:45 PM DISASTER RESPONSE DIRECTOR Pulse - - Temperature 36.6 C (97.9 F) 02/04/2004 1:45 PM DISASTER RESPONSE DIRECTOR Respiratory Rate - - Oxygen Saturation - - Inhaled Oxygen Concentration - - Weight 57.6 kg (127 lb) 02/04/2004 1:45 PM DISASTER RESPONSE DIRECTOR Height - - Body Mass Index - - documented in this encounter Plan of Treatment Upcoming Encounters Date Type Department Care Team (Late st Contact Info) Description 03/06/2025 4:40 PM DISASTER RESPONSE DIRECTOR Office Visit [facility] Primary Care [address] [place] [address] Carmelo [place]ñas [place] [address] [phone] documented as of this encounter Visit Diagnoses Not on filedocumented in this encounter Care Teams Motion Picture Set Worker Relationship Specialty Start Date End Date Carmelo Dueñ[place] [address] [address] PCP - General 03/06/02 documented as of this encounter
--- OUTSIDE RECORDS SUMMARY | 2025-01-29 19:52 | XMS_ITS | Encounter Summary ---
Author Organization [facility] Address [address] [place] [address] Care Team Providers Care Staff Physical Therapy Assistant Name Role Phone Carmelo Dueñas MD Primary Care Provider +1- [phone] Encounter Details Date Type Department Care Team (Late st Contact Info) Description 07/20/2006 Orders Only [facility] Internal Medicine [address] [address] [place]elo Dueñas [place] [address] [address] Social History Tobacco Use Types Packs/Day Years Used Date Smoking Tobacco: Never Assessed Comments Unknown Sex and Gender Information Value Date Recorded Sex Assigned at Not on file Legal Sex Female 4:47 AM REAL ESTATE PROCESSOR Gender Identity Not on file Sexual Orientation Not on file documented as of this encounter Progress Notes * Carmelo Dueñas MD - 07/06/2007 1:46 PM CDT CENTRAL TEST SCHEDULING DATE: JUL 20, 2006 Note created by: Funmi Vanessa E 04:55 p Patient Name : LOUISE GAYTAN Address: [facility] [place] [address] D.O.B: 1945 SSN: [id number] Parent/Guardian if applicable: Patient Insurance: ID#: Group#: ORDER(S) #: [id number] mamm BEST TO CALL HOME. BEST TIME TO CALL: ANYTIME. MAY WE LEAVE MESSAGE AT THAT NUMBER: YES, LEAVE MESSAGE. PLEASE SCHEDULE THE APPOINTMENT AT THE FOLLOWING LOCATION: [place]. TEST PRIORITY: 2 - 7 DAYS. SPECIAL SCHEDULING INSTRUCTIONS: ORDERING PHYSICIAN: CARMELO DUEÑAS MD OFFICE TANK HOUSE SUPERVISOR & PHONE: Funmi Vanessa E ORDER PRINTED [...] followed. LAB ORDERS: 6-8 weeks Order number: [id number] Test Ordered: COMPREHENSIVE METABOLIC PANEL & GFR 1112 Order number: [id number] Test Ordered: LIPID PANEL 1078 Order number: [id number] Test Ordered: TSH 1720 346.90-MIGRAINE HEADACHE ASSESSMENT: [...] CA OF BREAST LAB ORDERS: Order number: [id number] Test Ordered: MAMMOGRAM BI-LATERAL (2 VIEWS) HEALTH [...] st Contact Info) Description 03/06/2025 4:40 PM REAL ESTATE PROCESSOR Office Visit [facility] Primary Care [address] [place] [address] Carmelo Dueñas MD [address] [place] [address] documented as of this encounter Visit Diagnoses Not on filedocumented in this encounter Care Teams Staff Physical Therapy Assistant Relationship Specialty Start Date End Date Carmelo Dueñas MD [address] [place] [address] PCP - General 03/06/02 documented as of this encounter
--- OUTSIDE RECORDS SUMMARY | 2025-01-29 19:52 | XMS_ITS | Encounter Summary ---
Author Organization [facility] Address [address] [place] [address] Care Team Providers Care Chimney Mechanic Name Role Phone Carmelo Dueñas MD Primary Care Provider +1- [phone] Encounter Details Date Type Department Care Team (Late Contact Info) Description 04/21/2007 Outpatient Historical [facility] Internal Medicine [address] [address] Carmelo Dueñ[place] [address] [facility] [address] [place] [address] Social History Tobacco Use Types Packs/Day Years Used Date Smoking Tobacco: Never Assessed Comments Unknown Sex and Gender Information Value Date Recorded Sex Assigned at Not on file Legal Sex Female 4:47 AM CHILDREN'S ENTERTAINER Gender Identity Not on file Sexual Orientation Not on file documented as of this encounter Plan of Treatment Upcoming Encounters Date Type Department Care Team (Late Contact Info) Description 03/06/2025 4:40 PM CHILDREN'S ENTERTAINER Office Visit [facility] Primary Care [address] [place] [address] Carmelo [place] [address] [facility] [address] [place] [address] documented as of this encounter Visit Diagnoses Not on filedocumented in this encounter Care Teams Chimney Mechanic Relationship Specialty Start Date End Date Carmelo Dueñ[place] [address] [address] PCP - General 03/06/02 documented as of this encounter
--- OUTSIDE RECORDS SUMMARY | 2025-01-29 19:52 | XMS_ITS | Encounter Summary ---
Author Organization [facility] Address [address] [place] [address] Care Team Providers Care Guncotton Packer Name Role Phone Carmelo Dueñas MD Primary Care Provider +1- [phone] Encounter Details Date Type Department Care Team (Late Contact Info) Description 04/23/2005 Outpatient Historical [facility] Internal Medicine [address] [address] Carmelo Dueñas MD [address] [place] [address] Social History Tobacco Use Types Packs/Day Years Used Date Smoking Tobacco: Never Assessed Comments Unknown Sex and Gender Information Value Date Recorded Sex Assigned at Not on file Legal Sex Female 4:47 AM REINFORCING BAR SETTER Gender Identity Not on file Sexual Orientation Not on file documented as of this encounter Last Filed Vital Signs Vital Sign Reading Time Taken Comments Blood Pressure 110/60 04/23/2005 9:45 AM REINFORCING BAR SETTER Pulse - - Temperature - - Respiratory Rate - - Oxygen Saturation - - Inhaled Oxygen Concentration - - Weight 57.2 kg (126 lb) 04/23/2005 9:45 AM REINFORCING BAR SETTER Height - - Body Mass Index - - documented in this encounter Plan of Treatment Upcoming Encounters Date Type Department Care Team (Late st Contact Info) Description 03/06/2025 4:40 PM REINFORCING BAR SETTER Office Visit [facility] Primary Care [address] [place] [address] Carmelo Dueñas [place] [address] [address] documented as of this encounter Visit Diagnoses Not on filedocumented in this encounter Care Teams Guncotton Packer Relationship Specialty Start Date End Date Carmelo Dueñas [place] [address] [place] [address] PCP - General 03/06/02 documented as of this encounter
--- OUTSIDE RECORDS SUMMARY | 2025-01-29 19:52 | XMS_ITS | Encounter Summary ---
Author Organization [facility] Address [address] [place] [address] Care Team Providers Care Petroleum Refinery Laborer Name Role Phone Carmelo Dueñas MD Primary Care Provider +1- [phone] Encounter Details Date Type Department Care Team (Late Contact Info) Description 11/02/2003 Outpatient Historical [facility] Internal Medicine [address] [address] [place]elo Dueñ[place] [address] [address] Social History Tobacco Use Types Packs/Day Years Used Date Smoking Tobacco: Never Assessed Comments Unknown Sex and Gender Information Value Date Recorded Sex Assigned at Not on file Legal Sex Female 4:47 AM ELECTRICAL ENGINEERING TECHNICIAN Gender Identity Not on file Sexual [...] Contact Info) Description 03/06/2025 4:40 PM ELECTRICAL ENGINEERING TECHNICIAN Office Visit [facility] Primary Care [address] [place] [address] Carmelo Dueñas [place] [address] [place] [address] documented as of this encounter Visit Diagnoses Not on filedocumented in this encounter Care Teams Petroleum Refinery Laborer Relationship Specialty Start Date End Date Carmelo Dueñas [place] [address] [place] [address] PCP - General 03/06/02 documented as of this encounter
--- OUTSIDE RECORDS SUMMARY | 2025-01-29 19:52 | XMS_ITS | Encounter Summary ---
Author Organization [facility] Address [address] [place] [address] Care Team Providers Care Gear Design Engineer Name Role Phone Carmelo Dueñas MD Primary Care Provider +1- [phone] Encounter Details Date Type Department Care Team (Late Contact Info) Description 04/02/2003 Outpatient Historical [facility] Internal Medicine [address] [address] Carmelo Dueñas MD [address] [place] [address] Social History Tobacco Use Types Packs/Day Years Used Date Smoking Tobacco: Never Assessed Comments Unknown Sex and Gender Information Value Date Recorded Sex Assigned at Not on file Legal Sex Female 4:47 AM TELEVISION EQUIPMENT OPERATOR Gender Identity Not on file Sexual Orientation Not on file documented as of this encounter Last Filed Vital Signs Vital Sign Reading Time Taken Comments Blood Pressure 118/70 04/02/2003 3:45 PM TELEVISION EQUIPMENT OPERATOR Pulse - - Temperature - - Respiratory Rate - - Oxygen Saturation - - Inhaled Oxygen Concentration - - Weight 52.6 kg (116 lb) 04/02/2003 3:45 PM TELEVISION EQUIPMENT OPERATOR Height - - Body Mass Index - - documented in this encounter Plan of Treatment Upcoming Encounters Date Type Department Care Team (Late st Contact Info) Description 03/06/2025 4:40 PM TELEVISION EQUIPMENT OPERATOR Office Visit [facility] Primary Care [address] [place] [address] Carmelo Dueñ[place] [address] [address] documented as of this encounter Visit Diagnoses Not on filedocumented in this encounter Care Teams Gear Design Engineer Relationship Specialty Start Date End Date Carmelo Dueñas [place] [id number] [place] [phone] PCP - General 03/06/02 documented as of this encounter
--- OUTSIDE RECORDS SUMMARY | 2025-01-29 19:52 | XMS_ITS | Encounter Summary ---
Author Organization [facility] Address [address] [place] [address] Care Team Providers Care Invoicing Machine Operator Name Role Phone Carmelo Dueñas MD Primary Care Provider +1- [phone] Encounter Details Date Type Department Care Team (Late Contact Info) Description 08/24/2005 Outpatient Historical [facility] Internal Medicine [address] [address] [place]elo Dueñ[place] [address] [address] Social History Tobacco Use Types Packs/Day Years Used Date Smoking Tobacco: Never Assessed Comments Unknown Sex and Gender Information Value Date Recorded Sex Assigned at Not on file Legal Sex Female 4:47 AM ACTOR UNDERSTUDY Gender Identity Not on file Sexual Orientation [...] (Late Contact Info) Description 03/06/2025 4:40 PM ACTOR UNDERSTUDY Office Visit [facility] Primary Care [address] [place] [address] Carmelo Dueñas MD [address] [place] [address] documented as of this encounter Visit Diagnoses Not on filedocumented in this encounter Care Teams Invoicing Machine Operator Relationship Specialty Start Date End Date Carmelo Dueñas [place] [address] [place] [address] PCP - General 03/06/02 documented as of this encounter
--- OUTSIDE RECORDS SUMMARY | 2025-01-29 19:52 | XMS_ITS | Encounter Summary ---
Author Organization [facility] Address [address] [place] [address] Care Team Providers Care Well Service Pump Equipment Operator Name Role Phone Carmelo Dueñas MD Primary Care Provider +1- [phone] Encounter Details Date Type Department Care Team (Late Contact Info) Description 07/08/2006 Orders Only [facility] Internal Medicine [address] [phone] Omari Millard MD [address] [place] [address] [address] [place] [address] Social History Tobacco Use Types Packs/Day Years Used Date Smoking Tobacco: Never Assessed Comments Unknown Sex and Gender Information Value Date Recorded Sex Assigned at Not on file Legal Sex Female 4:47 AM COOK SPECIALTY FOREIGN FOOD Gender Identity Not on file Sexual Orientation Not on file documented as of this encounter Plan of Treatment Upcoming Encounters Date Type Department Care Team (Late Contact Info) Description 03/06/2025 4:40 PM COOK SPECIALTY FOREIGN FOOD Office Visit [facility] Primary Care [facility] [address] [place] [address] [address] [place] [address] Carmelo Dueñas MD [address] [place] [phone] documented as of this encounter Visit Diagnoses Not on filedocumented in this encounter Care Teams Well Service Pump Equipment Operator Relationship Specialty Start Date End Date Carmelo Dueñ[place] [address] [address] [place] [address] PCP - General 03/06/02 documented as of this encounter
--- OUTSIDE RECORDS SUMMARY | 2025-01-29 19:52 | XMS_ITS | Clinical Summary ---
Author Organization [id number] [place] Address [address] [place] [address] Care Team Providers Care Corpsman Name Role Phone Carmelo Dueñas MD Primary Care Provider +1 -[phone] Allergies Active Allergy Reactions Criticality Noted Date Comments Allergen Giz-Rvigf-Jdclt Bee Swelling Medium 10/30/2003 Codeine Seizures,Other (See [...] Department Care Team Description 01/29/2025 4:00 PM CERTIFIED DENTAL ASSISTANT Office Visit [facility] at [address] [address] [place] Robles NP Lower abdominal pain (Primary Dx) from Last 3 Months Surgical History Surgery Date Site/Laterality Comments REPLACEMENT TOTAL KNEE Right Social History Tobacco Use Types Packs/Day Years Used Date Smoking Tobacco: Never Assessed Comments No Sex and Gender Information Value Date Recorded Sex Assigned at Not on file Legal Sex Female 4:42 PM CERTIFIED DENTAL ASSISTANT Gender Identity Not on file Sexual Orientation Not on file Last Filed Vital Signs Vital Sign Reading Time Taken Comments Blood Pressure 122/70 01/29/2025 4:02 PM CERTIFIED DENTAL ASSISTANT Pulse 79 01/29/2025 4:02 PM CERTIFIED DENTAL ASSISTANT Temperature 36.2 C (97.2 F) 01/29/2025 4:02 PM CERTIFIED DENTAL ASSISTANT Respiratory Rate 16 01/29/2025 4:02 PM CERTIFIED DENTAL ASSISTANT Oxygen Saturation 97% 01/29/2025 4:02 PM CERTIFIED DENTAL ASSISTANT Inhaled Oxygen Concentration - - Weight 54.9 kg (121 lb) 01/29/2025 4:02 PM CERTIFIED DENTAL ASSISTANT Height 149.9 cm (4' 11) 01/29/2025 4:02 PM CERTIFIED DENTAL ASSISTANT Body Mass Index 24.44 01/29/2025 4:02 PM CERTIFIED DENTAL ASSISTANT Plan of Treatment Health Maintenance Due Date [...] POCT URINALYSIS DIPSTICK Routine 01/29/2025 4:11 PM CERTIFIED DENTAL ASSISTANT Lower abdominal pain from Last 3 Months Results * (ABNORMAL) POCT urinalysis dipstick (01/29/2025 4:11 PM CERTIFIED DENTAL ASSISTANT) Color, Urine, POC [place] Comment:azo Clarity, ur, POC Clear Clear Glucose, ur, POC Negative Negative Bilirubin, ur, POC Negative Negative Ketones, ur, POC Negative Negative Specific [place], POC 1.010 1.003 - 1.030 Blood, ur, POC Negative Negative pH, ur, POC 6.5 5.0 - 8.0 Protein, ur, POC Negative Negative Urobilinogen, urine, POC 1.0 0.2 - 1.0 mg/dL Nitrite, ur, POC Positive(A) Negative Leukocytes, ur, POC Negative Negative Lot Number [id number] Urine 01/29/2025 4:11 PM CERTIFIED DENTAL ASSISTANT [place] Robles DISK RECOATER POINT OF CARE TEST ORDERAB LES Final Result from Last 3 Months Insurance [facility] MEDICARE ADVANTAGE Care Teams Corpsman Relationship Specialty Start Date End Date Carmelo Dueñas MD [address] [address] PCP - General Internal Medicine 01/29/25
--- OUTSIDE RECORDS SUMMARY | 2025-01-29 19:52 | XMS_ITS | Encounter Summary ---
Author Organization [facility] Address [address] [place] [address] Care Team Providers Care Track Hoe Operator Name Role Phone Carmelo Dueñas MD Primary Care Provider +1- [phone] Encounter Details Date Type Department Care Team (Late st Contact Info) Description 05/15/2005 Orders Only [facility] Internal Medicine [address] [address] Carmelo Dueñas MD [address] [place] [address] Social History Tobacco Use Types Packs/Day Years Used Date Smoking Tobacco: Never Assessed Comments Unknown Sex and Gender Information Value Date Recorded Sex Assigned at Not on file Legal Sex Female 4:47 AM PEARL DIVER Gender Identity Not on file Sexual Orientation Not on file documented as of this encounter Progress Notes * Carmelo Dueñas MD - 11/24/2007 7:35 PM CDT TIME:01:33 pm PATIENT`S HOME PHONE: PATIENT`S WORK PHONE: PATIENT`S INSURANCE: [facility] Symtext [facility] WHO TOOK THE CALL: Simi Velázquez S GENERAL INFORMATION WHO CALLED: Pharmacy [phone] SECTION 1: REQUESTED ACTION browss 05/15/05 at [...] st Contact Info) Description 03/06/2025 4:40 PM PEARL DIVER Office Visit [facility] Care [address] [place] [address] Carmelo Dueñas MD [address] [place] [address] documented as of this encounter Visit Diagnoses Not on filedocumented in this encounter Care Teams Track Hoe Operator Relationship Specialty Start Date End Date Carmelo Dueñas MD [address] [place] [address] PCP - General 03/06/02 documented as of this encounter
--- OUTSIDE RECORDS SUMMARY | 2025-01-29 19:52 | XMS_ITS | Encounter Summary ---
Author Organization [facility] Address [address] [place] [address] Care Team Providers Care Director Child Abuse Therapy Name Role Phone Carmelo Dueñas MD Primary Care Provider +1- [phone] Reason for Visit * Reason Comments Medication Assistance Encounter Details Date Type Department Care Team (Late st Contact Info) Description 10/23/2024 Telephone [facility] Internal Medicine [address] [address] Carmelo Dueñas MD [address] [place] [address] Medication Assistance Social History Tobacco Use [...] than three times a week 01/23/2020 Attends Rastaf[employer] Services Not on file 01/22 Active Member [...] on file Legal Sex Female 4:47 AM PROCUREMENT OFFICER Gender Identity Not on file Sexual Orientation [...] Dept 09/11/24 Office Visit Carmelo Dueñas MD [facility] 04/03/24 Office Visit Carmelo Dueñas MD [facility] 09/20/23 Office Visit Carmelo Dueñas MD [facility] Showing recent visits within past 540 days with a meds authorizing provider and meeting all other requirements Future Appointments Date Type Provider Dept 03/06/25 Appointment Carmelo Dueñas MD [facility] Showing future appointments within next 365 days with a meds authorizing provider and meeting all other requirements * Telephone Encounter - Brennan Banks - 10/23/2024 9:24 AM CDT Copied from [facility] #[id number]. Topic: Medication Request >> Oct 23, 2024 9:20 AM Brennan Vasquez wrote: Caller Name: Noemi Gaytan Callback Number: Telephone Information: Medication (Ask patient/caregiver to spell if possible): UTI meds Note: All medication prescriptions can be requested using one CRM Caller is requesting: Medication Question from Patient (not involving new prescription or refill) Preferred Pharmacy: [id number] [place], [place] - [facility] [place] [address]) & [facility] [address] [facility] [address] Call Notes: Caller has question about having a UTI, need medication sent to pharmacy Is there an encounter open? No documented in this encounter Plan of Treatment Upcoming Encounters Date Type Department Care Team ([facility] st Contact Info) Description 03/06/2025 4:40 PM PROCUREMENT OFFICER Office Visit [address] [place] [address] Carmelo Dueñas [place] [address] [place] [address] documented as of this encounter Visit Diagnoses Diagnosis Urinary frequency- Primary documented in this encounter Care Teams Director Child Abuse Therapy Relationship Specialty Start Date End Date Carmelo Dueñas MD [address] [place] [address] PCP - General 03/06/02 documented as of this encounter
--- OUTSIDE RECORDS SUMMARY | 2025-01-29 19:52 | XMS_ITS | Encounter Summary ---
Author Organization [facility] Address [address] [place] [address] Care Team Providers Care Pick Up Driver Name Role Phone Carmelo Dueñas MD Primary Care Provider +1- [phone] Reason for Visit * Reason Comments Medication Assistance Encounter Details Date Type Department Care Team (Late st Contact Info) Description 06/28/2023 Telephone [facility] Primary Care [address] [place] [address] aCrmelo Dueñas MD [address] [place] [address] Medication Assistance Social History Tobacco Use [...] than three times a week 01/23/2020 Attends Taoism Services Not on file 01/22 Active Member [...] on file Legal Sex Female 4:47 AM SHOULDER JOINER Gender Identity Not on file Sexual Orientation [...] 10:02 AM CDT Augmentin antibiotics sent to [facility] pharmacy. Let me know if symptoms persist. * Telephone Encounter - Nancy Sun LPN - 06/29/2023 9:27 AM CDT Recent Visits Date Type Provider Dept 04/12/23 Office Visit Carmelo Dueñas MD [facility] 09/16/22 Office Visit Lon Carmichael PA [facility] 04/16/22 Office Visit Carmelo Dueñas MD [facility] 02/23/22 Video Visit Staci Del Valle ANP [facility] Showing recent visits within past 540 days with a meds authorizing provider and meeting all other requirements Future Appointments Date Type Provider Dept 09/20/23 Appointment Carmelo Dueñas MD [facility] Showing future appointments within next 150 days with a meds authorizing provider and meeting all other requirements * Telephone Encounter - Lindsay Ly - 06/28/2023 9:08 AM CDT Copied from [facility] #[id number]. Topic: Medication Request >> June 28, 2023 9:07 AM Lindsay Perez wrote: Caller is requesting: Medication - New Request (Not Currently Taking) Medication (Ask patient/caregiver to spell if possible): Sinus med [id number] [place] [address] [address] [facility] [facility] [address] [facility] [place] [address] Fax: [phone] Patient/Caregiver Callback Number: [phone] Call Notes: Requesting a prescripton for a sinus infection. Head is clogged up and Sore throat since Wednesday, June 24. Please advise. documented in this encounter Plan of Treatment Upcoming Encounters Date Type Department Care Team ([facility] Info) Description 03/06/2025 4:40 PM SHOULDER JOINER Office Visit [facility] Primary Care [address] [place] [address] Carmelo [place] [address] [facility] [address] [place] [address] documented as of this encounter Visit Diagnoses Not on filedocumented in this encounter Care Teams Pick Up Driver Relationship Specialty Start Date End Date Carmelo Dueñ[place] [address] [facility] [address] [place] [address] PCP - General 03/06/02 documented as of this encounter
--- OUTSIDE RECORDS SUMMARY | 2025-01-29 19:52 | XMS_ITS | Encounter Summary ---
Author Organization [facility] Address [address] [place] [address] Care Team Providers Care Lock Stitch Channeler Name Role Phone Carmelo Dueñas MD Primary Care Provider +- [phone] Encounter Details Date Type Department Care Team (Latest Contact Info) Description 08/24/2006 Outpatient Historical [facility] Carmelo Dueñas MD [address] [place] [address] [address] [place] [address] Other Screening Mammogram (Primary Dx) Social History Tobacco Use Types Packs/Day Years Used Date Smoking Tobacco: Never Assessed Comments Unknown Sex and Gender Information Value Date Recorded Sex Assigned at Not on file Legal Sex Female 4:47 AM LIMB DRIVER Gender Identity Not on file Sexual Orientation Not on file documented as of this encounter Plan of Treatment Upcoming Encounters Date Type Department Care Team (Late st Contact Info) Description 03/06/2025 4:40 PM LIMB DRIVER Office Visit [facility] Primary Care [facility] [address] [place] [address] [address] [place] [address] Carmelo Dueñas MD [id number] [place] [address] [address] [place] [address] documented as of this encounter Visit Diagnoses Diagnosis Other screening mammogram- Primary documented in this encounter Care Teams Lock Stitch Channeler Relationship Specialty Start Date End Date Carmelo Dueñas [place] [address] [place] [address] [address] [place] [address] PCP - General 03/06/02 documented as of this encounter
--- OUTSIDE RECORDS SUMMARY | 2025-01-29 19:52 | XMS_ITS | Encounter Summary ---
Author Organization [facility] Address [address] [place] [address] Care Team Providers Care Architectural Intern Name Role Phone Carmelo Dueñas MD Primary Care Provider +1- [phone] Reason for Visit * Reason Comments Results Encounter Details Date Type Department Care Team (Late st Contact Info) Description 12/01/2023 Telephone [facility] Internal Medicine [address] [address] Carmelo Dueñas MD [address] [place] [address] Results Social History Tobacco Use Types [...] than three times a week 01/23/2020 Attends [employer] Not on file 01/22 Active Member [...] on file Legal Sex Female 4:47 AM COLD STORAGE SUPERINTENDENT Gender Identity Not on file Sexual Orientation [...] - 12/01/2023 9:14 AM CDT Copied from [facility] #[id number]. Topic: CPA Information Request - Results >> Dec 01, 2023 9:12 AM Elvira Perez wrote: Caller is requesting information about results from an order. ? Caller Name: Noemi Gaytan Callback Number: [phone] (home) Test Name: Mammogram Results Encounter notes [...] st Contact Info) Description 03/06/2025 4:40 PM COLD STORAGE SUPERINTENDENT Office Visit [facility] Primary Care [address] [place] [address] Carmelo Dueñas MD [address] [place] [address] documented as of this encounter Visit Diagnoses Not on filedocumented in this encounter Care Teams Architectural Intern Relationship Specialty Start Date End Date Carmelo Dueñas MD [address] [place] [address] PCP - General 03/06/02 documented as of this encounter
--- OUTSIDE RECORDS SUMMARY | 2025-01-29 19:52 | XMS_ITS | Encounter Summary ---
Author Organization [facility] Address [address] [place] [address] Care Team Providers Care Methods Specialist Engineer Name Role Phone Carmelo Dueñas MD Primary Care Provider +1- [phone] Encounter Details Date Type Department Care Team (Late st Contact Info) Description 09/26/2003 Outpatient Historical [facility] DEPT Carmelo Dueñas MD [address] [place] [address] MIGRAINE NOS W/O MENTN INTRACTABLE (Primary Dx) Social History Tobacco Use Types Packs/Day Years Used Date Smoking Tobacco: Never Assessed Comments Unknown Sex and Gender Information Value Date Recorded Sex Assigned at Not on file Legal Sex Female 4:47 AM PERIODICALS LIBRARY ASSISTANT Gender Identity Not on file Sexual Orientation Not on file documented as of this encounter Plan of Treatment Upcoming Encounters Date Type Department Care Team (Late Contact Info) Description 03/06/2025 4:40 PM PERIODICALS LIBRARY ASSISTANT Office Visit [facility] Primary Care [address] [place] [address] Carmelo Dueñas [place] [address] [place] [address] documented as of this encounter Visit Diagnoses Diagnosis Migraine, unspecified, without mention of intractable migraine without mention of status migrainosus- Primary documented in this encounter Care Teams Methods Specialist Engineer Relationship Specialty Start Date End Date Carmelo Dueñ[place] [address] [address] PCP - General 03/06/02 documented as of this encounter
--- OUTSIDE RECORDS SUMMARY | 2025-01-29 19:52 | XMS_ITS | Encounter Summary ---
Author Organization [facility] Address [address] [place] [address] Care Team Providers Care Social Work Manager Name Role Phone Carmelo Dueñas MD Primary Care Provider +1- [phone] Encounter Details Date Type Department Care Team (Late Contact Info) Description 12/16/[address] [facility] Internal Medicine [address] [address] Carmelo Dueñas MD [address] [place] [address] Social History Tobacco Use Types Packs/Day Years Used Date Smoking Tobacco: Never Assessed Comments Unknown Sex and Gender Information Value Date Recorded Sex Assigned at Not on file Legal Sex Female 4:47 AM DIRECTOR OF STUDENT AFFAIRS Gender Identity Not on file Sexual Orientation [...] st Contact Info) Description 03/06/2025 4:40 PM DIRECTOR OF STUDENT AFFAIRS Office Visit [facility] Primary Care [address] [place] [address] Carmelo Dueñ[place] [address] [address] documented as of this encounter Visit Diagnoses Not on filedocumented in this encounter Care Teams Social Work Manager Relationship Specialty Start Date End Date Carmelo Dueñas [place] [address] [place] [address] PCP - General 03/06/02 documented as of this encounter
--- OUTSIDE RECORDS SUMMARY | 2025-01-29 19:52 | XMS_ITS | Encounter Summary ---
Author Organization [facility] Address [address] [place] [address] Care Team Providers Care Administrative Staff Supervisor Name Role Phone Carmelo Dueñas MD Primary Care Provider +1- [phone] Encounter Details Date Type Department Care Team (Late st Contact Info) Description 10/11/2014 Nurse Triage Report [facility] ABSTRACTION Omaira Mg, RN [address] [address] Social History Tobacco Use Types Packs/Day Years Used Date Smoking Tobacco: Former Cigarettes 20 0 10/17/1962 - 10/17/1982 Smokeless Tobacco: Never Alcohol Use Standard Drinks/Week Comments Yes 0 (1 standard drink = 0.6 oz pur e alcohol) occasional Comments No Sex and Gender Information Value Date Recorded Sex Assigned at Not on file Legal Sex Female 4:47 AM ADULT HIGH SCHOOL INSTRUCTOR Gender Identity Not on file Sexual Orientation [...] st Contact Info) Description 03/06/2025 4:40 PM ADULT HIGH SCHOOL INSTRUCTOR Office Visit [facility] Primary Care [address] [place] [address] Carmelo Dueñas [place] [id number] [place] [address] [address] [place] [address] documented as of this encounter Visit Diagnoses Not on filedocumented in this encounter Care Teams Administrative Staff Supervisor Relationship Specialty Start Date End Date Carmelo Dueñas [place] [address] [place] [address] [address] [place] [address] PCP - General 03/06/02 documented as of this encounter
--- OUTSIDE RECORDS SUMMARY | 2025-01-29 19:52 | XMS_ITS | Clinical Summary ---
Author Organization [facility] Address [address] [place] [address] Care Team Providers Care Coating Line Worker Name Role Phone Pilar Arroyo MD Unavailable [phone] Carmelo Dueñas MD Primary Care Provider [phone] Source Comments [facility],non-owned Affiliates and Associated Physician Practices is amultiple site organization consisting of ambulatory clinics and hospital sitesin [place], [place], [place] and [place]. This disclosure is being madepursuant to the Care Everywhere program and may not contain all information available regarding this patient. Last updated 17.[facility] Allergies Active Allergy Reactions Criticality Noted Date Comments Bee Venom Swelling Low 10/30/2003 Codeine GREENHOUSE INSTRUCTOR Dysfunction,Dizzines s,Itching Low 05/10/2002 Codeine Dizziness 01/19/2014 [...] fluticasone propionate (Flonase) 50 MCG/ACT nasal spray [place] 2 (two) sprays into the nose once [...] Recorded Patient Health Questionnaire-2 Score 0 08/02/2023 [facility] - Occupational [...] any time in the past 12 m [facility], were you homeless or living in a penitentiary (including now)? No 08/01/2024 Comments No Sex and Gender Information Value Date Recorded Sex Assigned at Not on file Legal Sex Female 5:48 AM KERRICK KLEANER OPERATOR Gender Identity Not on file Sexual [...] this topic Medical Devices Implanted Type Area Lamination Spinner Device Identifier Shelf Expiration Date Model / Serial / Lot Cmnt Bone Plc R 40gm Grn Implanted:Qty: 1 on 08/01/2024 by Pilar Arroyo MD at [facility] Right: Knee [employer] 11/14/2026 [id number] / / [id number] Cmpnt Ptlr 31mm 1 Pg Wire Ascnt Arcm Kn Implanted:Qty: 1 on 08/01/2024 by Pilar Arroyo MD at [facility] Right: Knee [employer] 07/17/2027 [id number] / / [id number] Cmpnt Fem Kn Rt Cr Cmnt Prm Vngrd Intlk 62.5mm Implanted:Qty: 1 on 08/01/2024 by Pilar Arroyo MD at [facility] Right: Knee [employer] 04/14/2034 [id number] / / [id number] Tray Tib 67mm Kn Cocr I Beam Implanted:Qty: 1 on 08/01/2024 by Pilar Arroyo MD at [facility] Right: Knee [employer] 04/26/2034 [id number] / / [id number] Selvin Brng [id number] Vngrd Vivacit-E Kn Ant S Implanted:Qty: 1 on 08/01/2024 by Pilar Arroyo MD at [facility] Right: Knee [employer] 05/14/2029 [id number] / / [id number] Insurance [facility] MANAGED MEDICARE ADV Advance Directives * Full Code (Latest Code Status on File) Date Activated Date Inactivated Comments 08/01/2024 2:26 PM 08/02/2024 6:23 PM Care Teams Coating Line Worker Relationship Specialty Start Date End Date Carmelo Dueñas MD PCP - General Internal Medicine 01/19/14 Pilar Arroyo MD Orthopedic Surgery 01/19/14
--- OUTSIDE RECORDS SUMMARY | 2025-01-29 19:52 | XMS_ITS | Encounter Summary ---
Author Organization [facility] Address [address] [place] [address] Care Team Providers Care Client Program Manager Name Role Phone Carmelo Dueñas MD Primary Care Provider [phone] Encounter Details Date Type Department Care Team (Latest Contact Info) Description 04/17/2003 Outpatient Historical [facility] Carmelo Dueñas MD [address] [place] [id number] SCREENING MAMM-MAILG NEOPL-OTHER (Primary Dx) Social History Tobacco Use Types Packs/Day Years Used Date Smoking Tobacco: Never Assessed Comments Unknown Sex and Gender Information Value Date Recorded Sex Assigned at Not on file Legal Sex Female 4:47 AM SERGEANT AT ARMS Gender Identity Not on file Sexual Orientation Not on file documented as of this encounter Plan of Treatment Upcoming Encounters Date Type Department Care Team (Late st Contact Info) Description 03/06/2025 4:40 PM SERGEANT AT ARMS Office Visit [facility] Primary Care [facility] [address] [facility] [address] [place] [id number] Carmelo Dueñas [place] [id number] [place] [address] [address] [place] [address] documented as of this encounter Visit Diagnoses Diagnosis Other screening mammogram- Primary documented in this encounter Care Teams Client Program Manager Relationship Specialty Start Date End Date Carmelo Dueñas MD [address] [place] [address] [address] [place] [address] PCP - General 03/06/02 documented as of this encounter
--- OUTSIDE RECORDS SUMMARY | 2025-01-29 19:52 | XMS_ITS | Encounter Summary ---
Author Organization [facility] Address [address] [place] [address] Care Team Providers Care Insulation Worker Furnace Installer Name Role Phone Carmelo Dueñas MD Primary Care Provider [phone]- [phone] Encounter Details Date Type Department Care Team (Latest Contact Info) Description 04/30/2005 Outpatient Historical [facility] IMG[facility] Carmelo Dueñas MD [address] [place] [address] [address] [place] [address] Other Screening Mammogram (Primary Dx) Social History Tobacco Use Types Packs/Day Years Used Date Smoking Tobacco: Never Assessed Comments Unknown Sex and Gender Information Value Date Recorded Sex Assigned at Not on file Legal Sex Female 4:47 AM ACCOUNT CONSULTANT Gender Identity Not on file Sexual Orientation Not on file documented as of this encounter Plan of Treatment Upcoming Encounters Date Type Department Care Team (Late st Contact Info) Description 03/06/2025 4:40 PM ACCOUNT CONSULTANT Office Visit [facility] Primary Care [facility] [address] [place] [address] [address] [place] [id number] Carmelo Dueñas MD [id number] [place] [address] [address] [place] [address] documented as of this encounter Visit Diagnoses Diagnosis Other screening mammogram- Primary documented in this encounter Care Teams Insulation Worker Furnace Installer Relationship Specialty Start Date End Date Carmelo Dueñas [place] [id number] [place] [address] [address] [place] [address] PCP - General 03/06/02 documented as of this encounter
--- OUTSIDE RECORDS SUMMARY | 2025-01-29 19:52 | XMS_ITS | Encounter Summary ---
Author Organization [facility] Address [address] [place] [address] Care Team Providers Care Caser In Name Role Phone Carmelo Dueñas MD Primary Care Provider [phone] Encounter Details Date Type Department Care Team (Late Contact Info) Description 10/14/2006 Orders Only [facility] Internal Medicine [address] [address] Carmelo Dueñ[place] [address] [facility] [address] [place] [address] Social History Tobacco Use Types Packs/Day Years Used Date Smoking Tobacco: Never Assessed Comments Unknown Sex and Gender Information Value Date Recorded Sex Assigned at Not on file Legal Sex Female 4:47 AM SNUFF GRINDER Gender Identity Not on file Sexual Orientation Not on file documented as of this encounter Plan of Treatment Upcoming Encounters Date Type Department Care Team (Late Contact Info) Description 03/06/2025 4:40 PM SNUFF GRINDER Office Visit [facility] Primary Care [address] [place] [phone] Carmelo Dueñ[place] [address] [facility] [address] [place] [address] documented as of this encounter Visit Diagnoses Not on filedocumented in this encounter Care Teams Caser In Relationship Specialty Start Date End Date Carmelo [place] [address] [address] PCP - General 03/06/02 documented as of this encounter
[2025-01-29] MEDS: CEPHALEXIN 500 MG CAPSULE PO (20:07)
[2025-01-29 20:11] VITALS: BP 136/87; PULSE 74; RESP 16; O2SAT 100
== END 2025-01-29 20:12 | disposition home or self-care (01) ==
PROVIDERS: Emergency Provider Student in an Organized Health Care Education/Training Program
DX: N30.90 Cystitis, unspecified without hematuria (principal); K40.90 Unilateral inguinal hernia, without obstruction or gangrene, not specified as recurrent
CPT/HCPCS: 36415; 74176; 80053; 81001; 83690; 85025; 87086; 96374; 99284; A9270; J1885